=== PATIENT | female | born 1965 | race Caucasian/White ===

== ENCOUNTER → 2017-07-03 10:45 | Outpatient (POV) | payer MEDICARE, OTHER, MEDICAID, SELFPAY | PROVIDERS: Visit Provider Dermatology | DX: Z00.00 Encounter for general adult medical examination without abnormal findings (principal) ==

== ENCOUNTER → 2017-07-14 13:31 | Outpatient (CLI) | payer MEDICARE, OTHER, SELFPAY ==
--- NOTE | 2017-07-14 13:51 | MM_ITS ---
MM Dig mamm DX unilat LT CAD COMPARISON: 11/29/2016 and 11/18/2016 INDICATION: Follow-up calcifications ORDERING PHYSICIAN: Salvador Ivan MD PATIENT AGE: 52 years TECHNIQUE: Standard images performed along with magnification views of the left breast FINDINGS: There is average fibroglandular tissue. Previously noted calcifications in the upper outer left breast are once again noted. Pelvic calcifications are not segmentally change they do maintain somewhat pleomorphic appearance and are mildly suspicious. There was attempted stereotactic biopsy and clip or localization on these calcifications. The calcifications could not be seen by stereotactic due to the location and patient's body habitus. The hookwire localization was extremely difficult also due to limited mobility and patient's body habitus and the calcifications were not removed in the specimen. Review of older films now made available for comparison dating back to 06/11/2013 shows calcifications having been present on the older outside mammogram. It is difficult to compare if there is been any change as magnification views were not performed at that time. Benign-appearing nodular densities are once again noted involving the left breast unchanged. A clip is present in the medial aspect of the left breast. IMPRESSION: Persistent mildly suspicious calcifications in the deep upper outer left breast as detailed above. BI-RADS Category: 4 Suspicious Abnormality-Biopsy Considered Recommendations: Consider repeat biopsy for the suspicious calcifications Attempts were made to biopsy calcifications both by stereotactic and by the wire and more prominent with difficulty secondary to the patient's inability to be positioned. Stereotactic directed biopsy on upright units may be feasible. Alternatively, we may perform a limited CT scan to see if the calcifications can be seen by CT. If they can be identified by CT then acquired could be placed under CT guidance.
== END ==
PROVIDERS: PCP Emergency Medicine; Visit Provider Surgery
DX: R92.8 Other abnormal and inconclusive findings on diagnostic imaging of breast (principal)
CPT/HCPCS: 77065

== ENCOUNTER → 2017-08-13 14:57 | Outpatient (REF) | payer MEDICARE, OTHER, SELFPAY ==
[2017-08-13 19:49] LABS: Basophils % 0.3 % (0.1-2.0); Eosinophils # 0.1 K/mm3 (0.0-0.4); Eosinophils % 1.3 % (0.1-12.0); Hematocrit 39.9 % (37.0-47.0); Hemoglobin 12.5 g/dL (12.2-16.2); Lymphocytes # 1.3 K/mm3 (0.7-4.5); Lymphocytes % 13.3 K/mm3 (10-50); Mean Corpuscular HGB Conc 31.2 g/dL (31.8-35.4); Mean Corpuscular Hemoglobin 27.8 pg (27.0-31.2); Mean Corpuscular Volume 89.1 fl (81-99); Mean Platelet Volume 9.1 fl (7.4-10.4); Monocytes # 0.4 K/mm3 (0.1-1.0); Monocytes % 4.4 % (1.7-9.3); Neutrophils # 7.9 K/mm3 (1.8-7.8); Neutrophils % 80.8 % (37.0-80.0); Platelet Count 271 K/mm3 (142-424); Red Blood Count 4.48 M/mm3 (4.20-5.40); White Blood Count 9.7 K/mm3 (4.8-10.8)
[2017-08-13 21:10] LABS: Hemoglobin A1C 9.9 % (0.0-7.0)
[2017-08-13 22:07] LABS: Anion Gap 12.5 mEq/L (5-15); Blood Urea Nitrogen 13 mg/dL (7-18); Carbon Dioxide 30 mmol/L (21.0-32.0); Chloride 101 mmol/L (98-107); Creatinine,Serum 1.04 mg/dL (0.55-1.02); Estimated Glomerular Filt Rate 56 ml/min (>60); GFR (African American) 68 ML/MIN (>60); Glucose 184 mg/dL (74-106); Potassium 4.5 mmoL/L (3.5-5.1); Sodium 139 mmol/L (136-145); Thyroid Stimulating Hormone 1.35 uIU/ml (0.358-3.740)
[2017-08-15 15:35] LABS: Vitamin B12 404 pg/mL (232-1245); Vitamin D 25 Hydroxy 30.9 ng/mL (30.0-100.0)
== END ==
LOC: LAB 14:57
PROVIDERS: Visit Provider Emergency Medicine
DX: E11.9 Type 2 diabetes mellitus without complications (principal); M25.562 Pain in left knee; E03.9 Hypothyroidism, unspecified
CPT/HCPCS: 80048; 82607; 82652; 83036; 84443; 85025

== ENCOUNTER → 2017-10-02 08:12 | Outpatient (POV) | payer MEDICARE, OTHER, SELFPAY | PROVIDERS: Visit Provider Dermatology | DX: Z00.00 Encounter for general adult medical examination without abnormal findings (principal) ==

== ENCOUNTER → 2017-10-15 08:11 | Outpatient (CLI) | payer MEDICARE, OTHER, MEDICAID, SELFPAY ==
--- NOTE | 2017-10-15 08:28 | US_ITS ---
US gallbladder HISTORY: ITS.REASON: right upper quadrant pain ORDERING PHYSICIAN: Salvador Ivan MD PATIENT AGE: 52 years Comparison: None FINDINGS: PANCREAS: Unremarkable. No obvious mass or abnormal fluid collection. No ductal dilatation LIVER: No focal liver lesions demonstrated. Homogeneous echogenicity. No intrahepatic biliary ductal dilatation evident RIGHT KIDNEY: Unremarkable. Normal size and echogenicity. No hydronephrosis GALLBLADDER: No gallstones, gallbladder wall thickening, pericholecystic fluid, or biliary dilatation. IMPRESSION: Negative gallbladder/right upper quadrant ultrasound
== END ==
PROVIDERS: PCP Emergency Medicine; Visit Provider Surgery
DX: R10.11 Right upper quadrant pain (principal)
CPT/HCPCS: 76705

== ENCOUNTER → 2017-11-07 10:11 | Outpatient (CLI) | payer MEDICARE, OTHER, MEDICAID, SELFPAY ==
--- NOTE | 2017-11-07 10:14 | NM_ITS ---
HEPATOBILIARY SCAN WITH CCK ORDERING PHYSICIAN : Salvador Ivan MD PATIENT AGE: 52 years GENDER: Female HISTORY: Right upper quadrant pain and nausea Following 8.02 millicuries Tc Choletec, images of the RUQ were obtained. There is prompt uptake of radionuclide by the liver which is grossly unremarkable. Small bowel is visualized. This initial portion of the study is normal. The gallbladder was allowed to fill out to 60 minutes. CCK 2.2 MCG administered IV performed 30 minutes.. Thereafter. The obtain data was analyzed and reveals a 89 % gallbladder ejection fraction (normal greater than 50%; borderline 35-50%). This is normal value mild pain with CCK administration . Visual inspection images, supports that there is robust contraction of the gallbladder IMPRESSION: Normal functioning gallbladder. With CCK 89 % % gallbladder ejection fraction by computer analysis. Mild pain with CCK administration.
== END ==
PROVIDERS: PCP Emergency Medicine; Visit Provider Surgery
DX: R10.11 Right upper quadrant pain (principal)
CPT/HCPCS: 78227; A9537; J2805

== ENCOUNTER → 2017-11-11 09:25 | Outpatient (REF) | payer MEDICARE, MEDICAID, SELFPAY ==
[2017-11-11 13:24] LABS: Basophils % 0.4 % (0.1-2.0); Eosinophils # 0.1 K/mm3 (0.0-0.4); Eosinophils % 1.5 % (0.1-12.0); Hematocrit 41.3 % (37.0-47.0); Hemoglobin 13.2 g/dL (12.2-16.2); Lymphocytes # 1.1 K/mm3 (0.7-4.5); Lymphocytes % 13.1 K/mm3 (10-50); Mean Corpuscular HGB Conc 31.9 g/dL (31.8-35.4); Mean Corpuscular Hemoglobin 27.4 pg (27.0-31.2); Mean Corpuscular Volume 85.8 fl (81-99); Mean Platelet Volume 9.7 fl (7.4-10.4); Monocytes # 0.4 K/mm3 (0.1-1.0); Monocytes % 5.5 % (1.7-9.3); Neutrophils # 6.4 K/mm3 (1.8-7.8); Neutrophils % 79.6 % (37.0-80.0); Platelet Count 231 K/mm3 (142-424); Red Blood Count 4.81 M/mm3 (4.20-5.40); White Blood Count 8.1 K/mm3 (4.8-10.8)
[2017-11-11 13:42] LABS: Hemoglobin A1C 11.2 % (0.0-7.0)
[2017-11-11 13:59] LABS: Alanine Aminotransferase 36 U/L (12-78); Albumin Level 4.1 gm/dL (3.4-5.0); Albumin/Globulin Ratio 1.2 (1.1-1.8); Alkaline Phosphatase 145 U/L (46-116); Anion Gap 13.4 mEq/L (5-15); Aspartate Amino Transferase 19 U/L (15-37); Bilirubin,Total 0.6 mg/dL (0.2-1.0); Blood Urea Nitrogen 19 mg/dL (7-18); Calcium 9.6 mg/dL (8.5-10.1); Carbon Dioxide 31 mmol/L (21.0-32.0); Chloride 98 mmol/L (98-107); Chol/HDL Ratio 4.3 (1-3.5); Cholesterol 151 mg/dL (140-200); Creatinine,Serum 1.17 mg/dL (0.55-1.02); Estimated Glomerular Filt Rate 49 ml/min (>60); Free T4 (Free Thyroxine) 1.26 ng/dl (0.76-1.46); GFR (African American) 59 ML/MIN (>60); Globulin 3.3 gm/dl (1.3-3.2); Glucose 290 mg/dL (74-106); HDL Cholesterol 35 mg/dL (29-89); LDL Cholesterol 86 mg/dL (0-130); Potassium 4.4 mmoL/L (3.5-5.1); Sodium 138 mmol/L (136-145); Thyroid Stimulating Hormone 1.56 uIU/ml (0.358-3.740); Total Protein,Serum 7.4 gm/dL (6.4-8.2); Triglycerides 150 mg/dL (30-200); VLDL Cholesterol 30 mg/dL (0-40)
[2017-11-12 10:21] LABS: Creatinine, Urine 117.9 mg/dL (Not Estab.); Microalbumin, Urine 13.1 ug/mL (Not Estab.)
== END ==
LOC: LAB 09:25
PROVIDERS: Visit Provider Emergency Medicine
DX: E11.9 Type 2 diabetes mellitus without complications (principal); E03.9 Hypothyroidism, unspecified
CPT/HCPCS: 80053; 80061; 82043; 82570; 83036; 84439; 84443; 85025

== ENCOUNTER → 2017-12-01 10:20 | Outpatient (REF) | payer MEDICARE, MEDICAID, SELFPAY ==
[2017-12-01 14:17] LABS: Amphetamine/Metha Screen,Urine Negative ng/mL (<1000); Barbiturates Screen,Urine Negative ng/mL (<200); Benzodiazepines Screen,Urine Negative ng/mL (<200); Cannabinoid Screen,Urine Negative ng/mL (<50); Cocaine Screen,Urine Negative ng/mL (<300); Methadone Screen,Urine Negative ng/mL (<300); Opiate Screen,Urine Negative ng/mL (<300); Phencyclidine Screen,Urine Negative ng/mL (<25)
== END ==
LOC: LAB 10:20
PROVIDERS: Visit Provider Nurse Practitioner Family
DX: M79.7 Fibromyalgia (principal); Z79.899 Other long term (current) drug therapy
CPT/HCPCS: 80305

== ENCOUNTER → 2017-12-02 10:14 | Outpatient (CLI) | payer MEDICARE, MEDICAID, SELFPAY | PROVIDERS: Visit Provider Nurse Practitioner Family | DX: Z79.899 Other long term (current) drug therapy (principal) ==

== ENCOUNTER → 2017-12-22 11:05 | Outpatient (POV) | payer MEDICARE, OTHER, MEDICAID, SELFPAY | PROVIDERS: PCP Emergency Medicine; Visit Provider Nurse Practitioner Acute Care | DX: Z00.00 Encounter for general adult medical examination without abnormal findings (principal) ==

== ENCOUNTER → 2017-12-30 08:46 | Outpatient (CLI) | payer MEDICARE, OTHER, MEDICAID, SELFPAY | PROVIDERS: PCP Emergency Medicine; Visit Provider Emergency Medicine | DX: E11.9 Type 2 diabetes mellitus without complications (principal) | CPT/HCPCS: 97802; G0108 ==

== ENCOUNTER → 2018-01-01 13:33 | Outpatient (REF) | payer MEDICARE, OTHER, MEDICAID, SELFPAY ==
[2018-01-01 19:29] LABS: Amphetamine/Metha Screen,Urine Negative ng/mL (<1000); Barbiturates Screen,Urine Negative ng/mL (<200); Benzodiazepines Screen,Urine Negative ng/mL (<200); Cannabinoid Screen,Urine Negative ng/mL (<50); Cocaine Screen,Urine Negative ng/mL (<300); Methadone Screen,Urine Negative ng/mL (<300); Opiate Screen,Urine Negative ng/mL (<300); Phencyclidine Screen,Urine Negative ng/mL (<25)
== END ==
LOC: LAB 13:33
PROVIDERS: Visit Provider Nurse Practitioner Family
DX: M79.7 Fibromyalgia (principal)
CPT/HCPCS: 80305

== ENCOUNTER → 2018-01-05 19:54 | Outpatient (CLI) | payer MEDICARE, OTHER, MEDICAID, SELFPAY | PROVIDERS: PCP Emergency Medicine; Visit Provider Emergency Medicine | DX: G47.33 Obstructive sleep apnea (adult) (pediatric) (principal); R06.83 Snoring | CPT/HCPCS: 95811 ==

== ENCOUNTER → 2018-01-22 08:57 | Outpatient (CLI) | payer MEDICARE, OTHER, MEDICAID, SELFPAY ==
--- NOTE | 2018-01-22 09:00 | MM_ITS ---
MM Dig screening mamm BI w/CAD ORDERING PHYSICIAN : Jamel Butler MD PATIENT AGE: 52 years GENDER: Female COMPARISON: July 2017 left mammogram; September 2015 and October 2016 bilateral screening mammogram Also July 2014 INDICATION: ITS.REASON: Routine Screening Mammogram no new complaints Previous bilateral breast reduction. Previous excisional biopsy. Upper-outer quadrant left breast Family history. Sister with breast cancer age 62 TECHNIQUE: Standard CC and MLO images were obtained. R2 CAD reviewed. FINDINGS: No suspicious . Heterogeneous breast pattern with mild to moderate scattered fibroglandular elements RIGHT BREAST:. No new areas of concern. Follow-up in one year. Stable architecture. No mass lesions. A few benign-appearing punctate calcifications appear fairly stable LEFT BREAST:Metallic marker clip at medial breast from previous stereotactic biopsy again noted.. Previously noted grouping calcifications at very deep lateral at left breast on axillary cc view is less well visualized today than 2017 or July 2017 mammogram images. There seems to be some subtle minimal motion artifact on today's images.. Recommend patient return for magnification spot views of these calcifications. Labeled X. These have not changed significantly but are again noted and were of concern on previous studies . At the area labeled Y, I believe at superior central left breast, are some tiny additional calcifications that would benefit from magnification views is well these appear fairly punctate more likely benign but nonspecific IMPRESSION: 1. Additional views LEFT BREAST recommended ... Magnification spot views to better evaluate and follow the slight irregular calcifications noted on recent prior studies at deep upper-outer quadrant. (Very subtle Motion artifact on today's MLO view limits detail & resolution here on today's study. Additional views warranted). This area is labeled X ... There are also some most likely benign very tiny faint punctate calcifications area labeled Y, I believe at superior breast. These should be included on these above magnification views as well 2... RIGHT BREAST:. Unremarkable. Stable. Follow-up in one year on right BI-RADS Category: 0 Need Additional Imaging Evaluaiton RECOMMENDED FOLLOW-UP: IMM - IMMEDIATE FOLLOW-UP RECOMMENDED Magnification views left breast (A letter has been sent to the patient regarding results of the study.) .
== END ==
PROVIDERS: PCP Emergency Medicine; Visit Provider Nurse Practitioner Obstetrics & Gynecology
DX: Z12.31 Encounter for screening mammogram for malignant neoplasm of breast (principal)
CPT/HCPCS: 77067

== ENCOUNTER → 2018-01-30 19:24 | Outpatient (REF) | payer MEDICARE, OTHER, MEDICAID, SELFPAY | LOC: LAB 19:24 | PROVIDERS: Visit Provider Nurse Practitioner Family | DX: L02.91 Cutaneous abscess, unspecified (principal) | CPT/HCPCS: 87070; 87077; 87186; 87205 ==

== ENCOUNTER → 2018-02-03 06:55 | Outpatient (CLI) | payer MEDICARE, OTHER, MEDICAID, SELFPAY ==
--- NOTE | 2018-02-03 06:57 | NM_ITS ---
CARDIOLITE SPECT MYOCARDIAL PERFUSION SCAN, REST AND STRESS: EXERCISE STRESS [facility] REVIEW QGS EF AND WALL MOTION EVALUATION: QPS - PERFUSION EVALUATION HISTORY: short of breath DOSE: 10.31 mCi technetium 99m mibi intravenously at rest followed by 32.3 mCi technetium 99m mibi following the intravenous ministration of 0.4 mg of Lexiscan. Resting blood pressure is 117/71. Stress blood pressure 122/64. FINDINGS: Ejection fraction is calculated to be 60%. Stress images reveal decreased activity in the anterior wall with some improvement on rest images. Gated images calculated ejection fraction of 60% with normal wall motion. IMPRESSION: Clinical correlation is advised. This test is not entirely consistent with breast attenuation and there is suggestion of some degree of reversibility in the anterior wall this would be considered a high risk abnormal stress test given the anterior wall involvement. Normal ejection fraction normal wall motion
--- NOTE | 2018-02-03 08:59 | HMH.ITSHM ---
GABAPENTIN CITALOPRAM TRAMADOL LISINOPRIL HUMALIN ATORVASTATIN RANITIDINE MELATONIN CENTRUM SILVER LEVEMIRE PHENTERMINE ASA MURENA CEPHALEXIN
== END ==
PROVIDERS: PCP Emergency Medicine; Visit Provider Internal Medicine
DX: E03.9 Hypothyroidism, unspecified (principal); E66.9 Obesity, unspecified; I10 Essential (primary) hypertension; R06.09 Other forms of dyspnea; R87.629 Unspecified abnormal cytological findings in specimens from vagina; E11.9 Type 2 diabetes mellitus without complications
CPT/HCPCS: 78452; 93017; 93306; A9502; J2785

== ENCOUNTER → 2018-02-17 09:46 | Outpatient (CLI) | payer MEDICARE, OTHER, MEDICAID, SELFPAY ==
--- NOTE | 2018-02-17 09:48 | XR_ITS ---
XR foot wt bearing LT 3V HISTORY: ITS.REASON: Pain, clubfoot ORDERING PHYSICIAN: Jamel Butler MD PATIENT AGE: 53 years COMPARISON: None FINDINGS: There is mild foot adduction. No inversion of the heel or plantarflexion on the weightbearing images. No fracture or dislocation. No significant degenerative change. IMPRESSION: Mild foot adduction otherwise negative left foot
--- NOTE | 2018-02-17 09:48 | XR_ITS ---
XR foot wt bearing RT 3V HISTORY: ITS.REASON: Club Foot ORDERING PHYSICIAN: Jamel Butler MD PATIENT AGE: 53 years COMPARISON: None FINDINGS: No fracture or dislocation. No lytic or blastic change. There is normal mineralization.. The joint spaces are well-preserved. No significant degenerative/arthritic changes. No erosive changes evident. There is normal alignment. A 02/17/2018 the There is minimal hyperostosis along the dorsal aspect of the distal fibula IMPRESSION: Negative, no acute finding
--- NOTE | 2018-02-17 09:48 | XR_ITS ---
XR ankle wt bearing RT min 3V HISTORY: ITS.REASON: club foot ORDERING PHYSICIAN: Jamel Butler MD PATIENT AGE: 53 years Comparison: None FINDINGS: There is normal alignment. There is mild lateral tilt of the talus. There is no evidence of inversion of the heel or plantar flexion of the ankle. The talar dome has an unremarkable appearance. IMPRESSION: 1. Minimal lateral tilt of the talus 2. Otherwise negative right ankle
--- NOTE | 2018-02-17 09:48 | MM_ITS ---
MM Dig mamm DX unilat LT CAD INDICATION: Follow-up abnormal mammogram ORDERING PHYSICIAN: Jamel Butler MD PATIENT AGE: 53 years COMPARISON: 01/22/2018, 07/14/2017, 11/29/2016, 06/11/2013 TECHNIQUE: Spot compression mag views of the left breast FINDINGS: Cluster calcification is once again noted in the deep upper outer aspect of the left breast. These do not appear significantly changed compared to 11/29/2016. There are mildly suspicious however they do appear stable and have been present dating back to 06/11/2013 and are probably benign. The faint calcifications in the central left breast seen on the most recent screening mammogram are probably benign. IMPRESSION: Probably benign calcifications. Calcifications in the deep upper outer left breast are not significant changed. Calcifications in the central aspect of left breast probably benign BI-RADS Category: 3 Probably Benign Finding Short Term Follow-up RECOMMENDED FOLLOW-UP: 6M - 6 MONTH FOLLOW-UP (A letter has been sent to the patient regarding results of the study.)
--- NOTE | 2018-02-17 09:48 | XR_ITS ---
XR ankle wt bearing LT min 3V HISTORY: ITS.REASON: club foot ORDERING PHYSICIAN: Jaeml Butler MD PATIENT AGE: 53 years Comparison: None FINDINGS: There is mild lateral tilt of the talus. The talar dome has an unremarkable appearance. No other significant anomalies evident. IMPRESSION: Mild lateral talar tilt otherwise negative left ankle
== END ==
PROVIDERS: PCP Emergency Medicine; Referring Provider Podiatrist; Visit Provider Nurse Practitioner Obstetrics & Gynecology
DX: R92.2 Inconclusive mammogram (principal); Q66.0 Congenital talipes equinovarus
CPT/HCPCS: 73610; 73630; 77065

== ENCOUNTER → 2018-03-02 13:14 | Outpatient (POV) | payer MEDICARE, OTHER, MEDICAID, SELFPAY | PROVIDERS: PCP Emergency Medicine; Visit Provider Nurse Practitioner Acute Care | DX: Z00.00 Encounter for general adult medical examination without abnormal findings (principal) ==

== ENCOUNTER → 2018-03-17 13:03 | Outpatient (CLI) | payer MEDICARE, OTHER, MEDICAID, SELFPAY ==
--- NOTE | 2018-03-17 13:04 | US_ITS ---
US Arterial Ankle Brachial Ind History: Bilateral breast pain, bilateral claudication, hyperlipidemia ITS.REASON: skin changes ORDERING PHYSICIAN: Yee Roy DPM PATIENT AGE: 53 years TECHNIQUE: Segmental pressures obtained of both right and left leg. These are compared to brachial blood pressure to yield index at each level sampled including summary MILAGRO. The data sheets from the procedure are available in PACS FINDINGS Rest study only performed today No prior studies available for comparison. Blood pressures reported are in millimeters mercury. RIGHT LEG MILAGRO = 1.0. RIGHT LEG TBI=0.9 Brachial BP: 115 Thigh BP: 136 Calf BP: 120 Ankle PT: 118 Ankle DP : 110 Digit =99 LEFT LEG MILAGRO = 1.0 LEFT LEG TBI= 1.0 Brachial BPD: 115 Thigh BP: 128 Calf BP: 122 Ankle PT:110 Ankle DP: 106 Digit = 109 Pulses and waveforms: Normal IMPRESSION: The ABIs as reported above are within normal limits. Waveforms and pulses are also unremarkable.
== END ==
PROVIDERS: PCP Emergency Medicine; Visit Provider Podiatrist
DX: R09.89 Other specified symptoms and signs involving the circulatory and respiratory systems (principal)
CPT/HCPCS: 93922

== ENCOUNTER → 2018-03-19 10:29 | Outpatient (REF) | payer MEDICARE, OTHER, MEDICAID, SELFPAY ==
[2018-03-19 14:19] LABS: Basophils # 0.1 K/mm3 (0-0.2); Basophils % 0.5 % (0.1-2.0); Eosinophils # 0.2 K/mm3 (0.0-0.4); Eosinophils % 1.7 % (0.1-12.0); Hematocrit 39.9 % (37.0-47.0); Lymphocytes # 1.2 K/mm3 (0.7-4.5); Lymphocytes % 13.3 K/mm3 (10-50); Mean Corpuscular HGB Conc 32.6 g/dL (31.8-35.4); Mean Corpuscular Hemoglobin 28.4 pg (27.0-31.2); Mean Corpuscular Volume 87.2 fl (81-99); Mean Platelet Volume 9.4 fl (7.4-10.4); Monocytes # 0.5 K/mm3 (0.1-1.0); Monocytes % 5.6 % (1.7-9.3); Neutrophils # 7.2 K/mm3 (1.8-7.8); Platelet Count 287 K/mm3 (142-424); Red Blood Count 4.58 M/mm3 (4.20-5.40); Red Cell Distribution Width 13.7 % (11.5-17.5); White Blood Count 9.1 K/mm3 (4.8-10.8)
[2018-03-19 14:36] LABS: Alanine Aminotransferase 36 U/L (12-78); Albumin Level 3.7 gm/dL (3.4-5.0); Alkaline Phosphatase 144 U/L (46-116); Anion Gap 14.1 mEq/L (5-15); Aspartate Amino Transferase 24 U/L (15-37); Bilirubin,Total 0.5 mg/dL (0.2-1.0); Blood Urea Nitrogen 14 mg/dL (7-18); Calcium 9.2 mg/dL (8.5-10.1); Carbon Dioxide 29 mmol/L (21.0-32.0); Chloride 101 mmol/L (98-107); Chol/HDL Ratio 3.6 (1-3.5); Cholesterol 141 mg/dL (140-200); Creatinine,Serum 0.92 mg/dL (0.55-1.02); Estimated Glomerular Filt Rate 64 ml/min (>60); GFR (African American) 78 ML/MIN (>60); Globulin 3.6 gm/dl (1.3-3.2); Glucose 133 mg/dL (74-106); HDL Cholesterol 39 mg/dL (29-89); LDL Cholesterol 82 mg/dL (0-130); Potassium 4.1 mmoL/L (3.5-5.1); Sodium 140 mmol/L (136-145); T4 (Thyroxine) 11.2 ug/dl (4.7-13.3); Thyroid Stimulating Hormone 1.13 uIU/ml (0.358-3.740); Total Protein,Serum 7.3 gm/dL (6.4-8.2); Triglycerides 102 mg/dL (30-200); VLDL Cholesterol 20 mg/dL (0-40)
[2018-03-19 16:48] LABS: Hemoglobin A1C 9.1 % (0.0-7.0)
[2018-03-20 08:35] LABS: Iron 70 ug/dL (27-159); UIBC 291 ug/dL (131-425)
[2018-03-20 09:07] LABS: Iron Saturation 19 % (15-55); Vitamin D 25 Hydroxy 36.7 ng/mL (30.0-100.0)
[2018-03-23 16:22] LABS: 1,25-Dihydroxy, Vitamin D-2 <10 pg/mL (.)
[2018-03-23 17:17] LABS: 1,25 Dihydroxy Vitamin D 35 pg/mL (.); 1,25-Dihydroxy, Vitamin D-3 30 pg/mL (.)
== END ==
LOC: LAB 10:29
PROVIDERS: PCP Nurse Practitioner Family; Visit Provider Nurse Practitioner Family
DX: E11.9 Type 2 diabetes mellitus without complications (principal); R53.83 Other fatigue; E03.9 Hypothyroidism, unspecified
CPT/HCPCS: 80053; 80061; 82652; 83036; 83540; 83550; 84436; 84443; 85025

== ENCOUNTER → 2018-04-30 09:49 | Outpatient (CLI) | payer MEDICARE, OTHER, MEDICAID, SELFPAY ==
--- NOTE | 2018-04-30 09:52 | XR_ITS ---
XR knee RT 4V HISTORY: ITS.REASON: 4 veiws weightbearing ORDERING PHYSICIAN: Keira Montgomery MD PATIENT AGE: 53 years COMPARISON: None FINDINGS: Moderate osteoarthritic changes are present at the patellofemoral joint along the lateral facet with mild lateral subluxation of the patella. Mild osteoarthritic changes are present at the medial and lateral compartment. No fracture or dislocation. No lytic or blastic change. IMPRESSION: Osteoarthritis, otherwise negative
--- NOTE | 2018-04-30 09:52 | XR_ITS ---
XR knee LT 4V HISTORY: Knee pain ITS.REASON: weightbearing ORDERING PHYSICIAN: Keira Montgomery MD PATIENT AGE: 53 years COMPARISON: None FINDINGS: There are mild osteoarthritic changes involving all 3 compartments somewhat greater at the patellofemoral joint laterally. No fracture or dislocation. No lytic or blastic change. There is a subcortical lucency of the proximal tibia just deep to the medial tibial spine and may be due to small subarticular cyst. IMPRESSION: Mild osteoarthritis
== END ==
PROVIDERS: PCP Emergency Medicine; Visit Provider Orthopaedic Surgery
DX: M25.561 Pain in right knee (principal); M25.562 Pain in left knee
CPT/HCPCS: 73564

== ENCOUNTER → 2018-06-04 08:50 | Outpatient (CLI) | payer MEDICARE, OTHER, MEDICAID, SELFPAY ==
--- NOTE | 2018-06-04 08:55 | XR_ITS ---
XR hip LT 2-3V w/pelvis HISTORY: ITS.REASON: Hip pain ORDERING PHYSICIAN: Keira Montgomery MD PATIENT AGE: 53 years COMPARISON: None FINDINGS: No fracture or dislocation is evident. No significant degenerative change. No lytic or blastic change. Unremarkable soft tissues IMPRESSION: Negative hip
--- NOTE | 2018-06-04 08:55 | XR_ITS ---
XR pelvis 1-2V HISTORY: Bilateral hip pain ITS.REASON: Hip pain ORDERING PHYSICIAN: Keira Montgomery MD PATIENT AGE: 53 years Comparison: None FINDINGS: No fracture or dislocation is evident. No significant degenerative change. No lytic or blastic change. The SI joints have an unremarkable appearance. Unremarkable soft tissues. There is a Shar D in place IMPRESSION: Negative pelvis.
--- NOTE | 2018-06-04 08:55 | XR_ITS ---
EXAM: XR lumbar spine 2-3V HISTORY: ITS.REASON: back pain ORDERING PHYSICIAN: Keira Montgomery MD PATIENT AGE: 53 years COMPARISON: 11/27/2012 FINDINGS: There is mild lumbar scoliosis convex left. Mild lateral translation of L3 on L4 of 6 mm. Degenerative disc disease is present at T12-L1, L1-L2, and L3-L4. Small anterior osteophytes are present at these levels. IMPRESSION: Degenerative disc disease with levoscoliosis. These findings have progressed compared to the previous exam
--- NOTE | 2018-06-04 09:09 | XR_ITS ---
XR hip RT 2-3V w/pelvis HISTORY: ITS.REASON: Hip pain ORDERING PHYSICIAN: Keira Montgomery MD PATIENT AGE: 53 years COMPARISON: None FINDINGS: No fracture or dislocation is evident. No significant degenerative change. No lytic or blastic change. There is minimal calcification along the lateral aspect of the proximal femoral shaft within the soft tissues nonspecific. There are 2 small rounded areas of calcification and a small linear area of calcification at this region. IMPRESSION: Nonspecific soft tissue calcification. This may be better evaluated with CT if clinically warranted. No bony or joint abnormalities
== END ==
PROVIDERS: PCP Emergency Medicine; Visit Provider Orthopaedic Surgery
DX: M25.552 Pain in left hip (principal); M25.551 Pain in right hip; M54.9 Dorsalgia, unspecified
CPT/HCPCS: 72100; 72170; 73502

== ENCOUNTER → 2018-06-25 10:09 | Outpatient (CLI) | payer MEDICARE, OTHER, MEDICAID, SELFPAY ==
--- NOTE | 2018-06-25 10:14 | XR_ITS ---
EXAM: XR cervical spine 2V HISTORY: ITS.REASON: Neck pain ORDERING PHYSICIAN: Keira Montgomery MD PATIENT AGE: 53 years COMPARISON: None FINDINGS: There is kyphosis at the C4-C5 level with 2 mm anterolisthesis of C4. Moderate degenerative disc disease with prominent anterior osteophytes are present at C5-C6 and C6-C7 with mild degenerative disc disease at C4-C5. No fracture or dislocation. IMPRESSION: Reversal of cervical lordosis with multilevel cervical degenerative disc disease
--- NOTE | 2018-06-25 10:14 | XR_ITS ---
XR scoliosis survey CLINICAL INDICATION: ITS.REASON: Back pain ORDERING PHYSICIAN: Keira Montgomery MD PATIENT AGE: 53 years Comparison: None FINDINGS: Upright AP and lateral views are obtained of the thoracic and lumbar spine there is mild levoscoliosis of the lumbar spine measuring 15 degrees. Minimal upper thoracic scoliosis convex right measuring 5 degrees. There is degenerative disc disease at L1-L2 and L3-L4 as well as within the mid and lower thoracic spine. No acute fracture or dislocation. IMPRESSION: Mild thoracic lumbar scoliosis with thoracic and lumbar spondylosis
== END ==
PROVIDERS: PCP Emergency Medicine; Visit Provider Orthopaedic Surgery
DX: M54.9 Dorsalgia, unspecified (principal); M54.2 Cervicalgia
CPT/HCPCS: 72040; 72081

== ENCOUNTER → 2018-07-13 10:23 | Outpatient (POV) | payer MEDICARE, OTHER, MEDICAID, SELFPAY | PROVIDERS: Visit Provider Nurse Practitioner Acute Care | DX: Z00.00 Encounter for general adult medical examination without abnormal findings (principal) ==

== ENCOUNTER → 2018-08-06 09:30 | Outpatient (POV) | payer MEDICARE, OTHER, MEDICAID, SELFPAY | PROVIDERS: Visit Provider Podiatrist | DX: Z00.00 Encounter for general adult medical examination without abnormal findings (principal) ==

== ENCOUNTER → 2018-08-10 10:02 | Outpatient (POV) | payer MEDICARE, OTHER, MEDICAID, SELFPAY ==
[2018-08-10 10:21] VITALS: BP 139/75; PULSE 84; RESP 18; O2SAT 98
--- NOTE | 2018-08-10 10:37 | HMH.PMCON ---
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 I will follow-up with the patient after this and reassess her symptoms at that time. She has been instructed to call the office if she has any issues prior to her next appointment. Dr. James has reviewed this note and agrees with this plan of care. This note was dictated using voice recognition software and may contain errors or omissions HPI - Data of Consult Consult date: 08/10/18 Requesting Physician: Yusra Spangler APRN Primary Care Provider: Tien Wade MD - Consult Narrative Reason for consult: Back pain, hip pain History of present illness: Ms. Chase is a 53 year old female who presents today for consultation in regards to her low back and hip pain. Patient has pain around her belt area and radiating into her bilateral buttock. Patient states that she does not have any radiation of pain down her legs. Patient has not had a recent MRI. I do believe that would be beneficial in helping determine any lumbar pathology. Patient has been taking medication for over 6 months along with getting injections from her orthopedist. Patient rates her pain a 6 out of 10 today. Mother patient does have history of clubfoot and has not been wearing her braces recently. The area which the pain is located is in her SI joint area. We will get some imaging in regards to this. Patient is continuing a home stretching routine. CC: Yusra Spangler APRN [facility] History I have reviewed the patient's past medical history: Yes Medical History: Reports:: Anxiety, Depression, Diabetes Mellitus Type 2, Hyperlipidemia, Hypertension, Lung Disease Denies:: Diabetes Mellitus Type 1, Internal Pacemaker, Seizures *Have you ever received a pneumonia vaccine?: No *Have you received a flu vaccine this season?: Yes Other Medical History: Reports: Arthritis, Fibromyalgia, Hypothyroidism, Thyroid Disease Laterality Cases: Right: Carpal Tunnel Release, Bilateral: Other Other Surgeries: Yes: Other (breast reduction). No: Pacemaker Amputation: No Fractures: No - *Social History Smoking Status: Unknown if ever smoked Alcohol Intake: never Alcohol Intake Frequency:: other Substance Use Type: denies use *Occupational Status:: disabled Housing: house Household Members: family *Travel in the last 8 weeks: None - Psychiatric History Expresses thoughts of harming self/others: None Suicide Plan Description: No Plan Pschychiatric History:: Reports:: Anxiety, Depression Family Hx:: Hypertension, Hyperlipidemia, Thyroid Disorder, Cancer, Heart Attack Review of Systems - Review of Systems ROS General: no recent weight change, no fever, no sleep disturbances Respiratory: no cough, no shortness of air, no recurring pulmonary infections Cardiovascular/Peripheral Vascular: No chest pain, No palpitations, no edema, no shortness of breath. Gastrointestinal: no incontinence, normal bowel movements reported Genitourinary: no incontinence Musculoskeletal: Back pain, hip pain Psychiatric: normal mood/ affect Neurological: [denies weakness in extremities], [denies balance issues] Meds Home Medications Medication Instructions Recorded Confirmed Type Blood-Glucose Meter [Glucocard 0 each .ROUTE .MEDSUPPLY 09/29/17 08/06/18 History Shine Xl] aspirin 81 mg tablet
--- NOTE | 2018-08-10 10:40 | P.CONS_ITS ---
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 I will follow-up with the patient after this and reassess her symptoms at that time. She has been instructed to call the office if she has any issues prior to her next appointment. Dr. James has reviewed this note and agrees with this plan of care. This note was dictated using voice recognition software and may contain errors or omissions HPI - Data of Consult Consult date: 08/10/18 Requesting Physician: Yusra Spangler APRN Primary Care Provider: Tien Wade MD - Consult Narrative Reason for consult: Back pain, hip pain History of present illness: Ms. Chase is a 53 year old female who presents today for consultation in regards to her low back and hip pain. Patient has pain around her belt area and radiating into her bilateral buttock. Patient states that she does not have any radiation of pain down her legs. Patient has not had a recent MRI. I do believe that would be beneficial in helping determine any lumbar pathology. Patient has been taking medication for over 6 months along with getting injections from her orthopedist. Patient rates her pain a 6 out of 10 today. Mother patient does have history of clubfoot and has not been wearing her braces recently. The area which the pain is located is in her SI joint area. We will get some imaging in regards to this. Patient is continuing a home stretching routine. CC: Yusra Spangler APRN [facility] History I have reviewed the patient's past medical history: Yes Medical History: Reports:: Anxiety, Depression, Diabetes Mellitus Type 2, Hyperlipidemia, Hypertension, Lung Disease Denies:: Diabetes Mellitus Type 1, Internal Pacemaker, Seizures *Have you ever received a pneumonia vaccine?: No *Have you received a flu vaccine this season?: Yes Other Medical History: Reports: Arthritis, Fibromyalgia, Hypothyroidism, Thyroid Disease Laterality Cases: Right: Carpal Tunnel Release, Bilateral: Other Other Surgeries: Yes: Other (breast reduction). No: Pacemaker Amputation: No Fractures: No - *Social History Smoking Status: Unknown if ever smoked Alcohol Intake: never Alcohol Intake Frequency:: other Substance Use Type: denies use *Occupational Status:: disabled Housing: house Household Members: family *Travel in the last 8 weeks: None - Psychiatric History Expresses thoughts of harming self/others: None Suicide Plan Description: No Plan Pschychiatric History:: Reports:: Anxiety, Depression Family Hx:: Hypertension, Hyperlipidemia, Thyroid Disorder, Cancer, Heart Attack Review of Systems - Review of Systems ROS General: no recent weight change, no fever, no sleep disturbances Respiratory: no cough, no shortness of air, no recurring pulmonary infections Cardiovascular/Peripheral Vascular: No chest pain, No palpitations, no edema, no shortness of breath. Gastrointestinal: no incontinence, normal bowel movements reported Genitour
== END ==
PROVIDERS: PCP Emergency Medicine; Visit Provider Clinical Nurse Specialist Family Health
DX: M15.3 Secondary multiple arthritis (principal)
CPT/HCPCS: 99202

== ENCOUNTER → 2018-08-13 12:28 | Outpatient (CLI) | payer MEDICARE, OTHER, MEDICAID, SELFPAY ==
--- NOTE | 2018-08-13 12:40 | XR_ITS ---
XR sacroiliac joint BI min 3V CLINICAL INDICATION: ITS.REASON: BACK PAIN ORDERING PHYSICIAN: Yusra Spangler PATIENT AGE: 53 years Comparison: None FINDINGS: The SI joints have an unremarkable appearance. No fracture or dislocation. No lytic or blastic change. No fusion. There is an IUD in place IMPRESSION: Negative SI joints
--- NOTE | 2018-08-13 13:52 | MR_ITS ---
MR lumbar spine wo con, MR 3-d myelogram/MRCP HISTORY: PT states low back pain X years. RT sided pain is worse. Bilateral leg pain and numbness at times. No prior surgery. ITS.REASON: BACK PAIN ORDERING PHYSICIAN: Yusra Spangler PATIENT AGE: 53 years Comparison: X-RAY 06/04/18. MRI 11/06/16. TECHNIQUE: Standard multiplanar multiecho sequences are performed without contrast. 3-D MIP and myelographic images are also rendered and reviewed FINDINGS: There is normal alignment. Spinal cord ends at the L1 level. T11-T12: There is a small left paracentral disc protrusion causing compression upon the left aspect of the cord and flattening of the left aspect of the cord. This is slightly increased in size compared to the previous study also with left lateral recess and foraminal narrowing from this disc. T11-T12: Unremarkable. L1-L2: Degenerative disc disease with minimal bulging disc. L2-L3: Unremarkable. L3-L4: Degenerative disc disease with bulging disc. There is moderate to severe facet and ligamentum flavum hypertrophy with severe bilateral lateral recess narrowing and moderate right-sided foraminal and mild left-sided foraminal narrowing. The disc is slightly eccentric toward the right. There is transverse narrowing of the canal with the bilateral lateral recess narrowing noted. The ligamentum hypertrophy appears somewhat greater than when compared to the previous exam with worsening bilateral lateral recess narrowing and bilateral foraminal narrowing. L4-L5: Moderate facet ligamentum flavum hypertrophic change with bilateral lateral recess narrowing slightly worse than when compared to the previous exam. L5-S1: Mild facet and ligamentum flavum hypertrophy with mild bilateral foraminal narrowing. A small amount fluid is present in the facets at this level. IMPRESSION: 1. T11-T12: There is a small left paracentral disc protrusion causing compression upon the left aspect of the cord and flattening of the left aspect of the cord. This is slightly increased in size compared to the previous study also with left lateral recess and foraminal narrowing from this disc 2. L3-L4: Degenerative disc disease with bulging disc. There is moderate to severe facet and ligamentum flavum hypertrophy with severe bilateral lateral recess narrowing and moderate right-sided foraminal and mild left-sided foraminal narrowing. The disc is slightly eccentric toward the right. There is transverse narrowing of the canal with the bilateral lateral recess narrowing noted. The ligamentum hypertrophy appears somewhat greater than when compared to the previous exam with worsening bilateral lateral recess narrowing and bilateral foraminal narrowing. 3. L4-L5: Moderate facet ligamentum flavum hypertrophic change with bilateral lateral recess narrowing slightly worse than when compared to the previous exam. 4. L5-S1: Mild facet and ligamentum flavum hypertrophy with mild bilateral foraminal narrowing. A small amount fluid is present in the facets at this level.
== END ==
PROVIDERS: PCP Emergency Medicine; Visit Provider Clinical Nurse Specialist Family Health
DX: M54.5 Low back pain (principal)
CPT/HCPCS: 72148; 72202; 76376

== ENCOUNTER → 2018-08-24 14:19 | Outpatient (POV) | payer MEDICARE, OTHER, MEDICAID, SELFPAY ==
[2018-08-24 14:50] VITALS: BP 131/80; PULSE 98; RESP 18; O2SAT 98; BMI 40.0
--- NOTE | 2018-08-24 15:23 | XR_ITS ---
EXAM: XR lumbar spine 2-3V HISTORY: ITS.REASON: BACK PAIN ORDERING PHYSICIAN: Yusra Spangler PATIENT AGE: 53 years COMPARISON: None FINDINGS: There is mild lumbar scoliosis convex left. Flexion and extension views are obtained showing no abnormal subluxation in flexion or extension. There is degenerative disc disease at T11-T12, T12-L1, L1-L2, and L3-L4. IMPRESSION: Degenerative disc disease, no abnormal subluxation in flexion or extension
--- NOTE | 2018-08-25 08:17 | HMH.PAINSOAP ---
[facility] Pain Management SOAP Note Subjective:: Patient is a very pleasant 53-year-old white female who presents today to discuss her most recent MRI. Patient states most of her pain is in her low back and legs. She finds she cannot walk for long periods of time she finds that she constantly feels herself being pulled over to help alleviate pain. When patient is walking in the grocery store she has to lean on a cart. Patient states she gets numbness and tingling in her legs after standing for long periods of time. Patient is interested in potentially the for to flex procedure. I think it would be beneficial for her. She rates her pain today a 6 out of 10. Patient is only able to walk about 5 minutes prior to needing to sit down. ROS General: no recent weight change, no fever, no sleep disturbances Respiratory: no cough, no shortness of air, no recurring pulmonary infections Cardiovascular/Peripheral Vascular: No chest pain, No palpitations, no edema, no shortness of breath. Gastrointestinal: no incontinence, normal bowel movements reported Genitourinary: no incontinence Musculoskeletal: Back pain and leg pain Psychiatric: normal mood/ affect Neurological: Weakness in lower extremities when walking, [denies balance issues] Objective:: Physical Exam General: Alert and oriented x3, no acute distress, pleasant and cooperative, [on room air] Lungs: Resps E/U, Symmetrical chest expansion, Eyes: PERRL Musculoskeletal: Flexion and extension of lumbar spine somewhat guarded secondary to pain, deep tendon reflexes normal, strength in upper and lower extremities [5/5], [abnormal gait noted] Neurological: speech clear, junior art director equal, no gross sensory deficits Assessment:: 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 I discussed this with her the levels of the L3-L4 L4-L5. We will send her for seated flexion and extension x-rays to see if this would be plausible. Patient's not on any anticoagulation therapy. She is continuing a home stretching program. Patient is failed over 6 months of conservative treatment. Including medications and injective therapies Dr. James has reviewed this note and agrees with this plan of care. This note was dictated using voice recognition software and may contain errors or omissions
--- NOTE | 2018-08-25 08:21 | P.CONS_ITS ---
[facility] Pain Management SOAP Note Subjective:: Patient is a very pleasant 53-year-old white female who presents today to discuss her most recent MRI. Patient states most of her pain is in her low back and legs. She finds she cannot walk for long periods of time she finds that she constantly feels herself being pulled over to help alleviate pain. When patient is walking in the grocery store she has to lean on a cart. Patient states she gets numbness and tingling in her legs after standing for long periods of time. Patient is interested in potentially the for to flex procedure. I think it would be beneficial for her. She rates her pain today a 6 out of 10. Patient is only able to walk about 5 minutes prior to needing to sit down. ROS General: no recent weight change, no fever, no sleep disturbances Respiratory: no cough, no shortness of air, no recurring pulmonary infections Cardiovascular/Peripheral Vascular: No chest pain, No palpitations, no edema, no shortness of breath. Gastrointestinal: no incontinence, normal bowel movements reported Genitourinary: no incontinence Musculoskeletal: Back pain and leg pain Psychiatric: normal mood/ affect Neurological: Weakness in lower extremities when walking, [denies balance issues] Objective:: Physical Exam General: Alert and oriented x3, no acute distress, pleasant and cooperative, [on room air] Lungs: Resps E/U, Symmetrical chest expansion, Eyes: PERRL Musculoskeletal: Flexion and extension of lumbar spine somewhat guarded seconda ry to pain, deep tendon reflexes normal, strength in upper and lower extremities [5/5], [abnormal gait noted] Neurological: speech clear, refrigeration specialist equal, no gross sensory deficits Assessment:: 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 I discussed this with her the levels of the L3-L4 L4-L5. We will send her for seated flexion and extension x-rays to see if this would be plausible. Patient's not on any anticoagulation therapy. She is continuing a home stretching program. Patient is failed over 6 months of conservative treatment. Including medications and injective therapies Dr. James has reviewed this note and agrees with this plan of care. This note was dictated using voice recognition software and may contain errors or omissions
== END ==
PROVIDERS: PCP Emergency Medicine; Visit Provider Clinical Nurse Specialist Family Health
DX: M48.062 Spinal stenosis, lumbar region with neurogenic claudication (principal); M54.9 Dorsalgia, unspecified
CPT/HCPCS: 72100; 99213

== ENCOUNTER → 2018-08-28 11:01 | Outpatient (CLI) | payer MEDICARE, OTHER, MEDICAID, SELFPAY ==
[2018-08-28 11:57] LABS: Amphetamine/Metha Screen,Urine Negative ng/mL (<1000); Barbiturates Screen,Urine Negative ng/mL (<200); Benzodiazepines Screen,Urine Negative ng/mL (<200); Cannabinoid Screen,Urine Negative ng/mL (<50); Cocaine Screen,Urine Negative ng/mL (<300); Methadone Screen,Urine Negative ng/mL (<300); Opiate Screen,Urine Negative ng/mL (<300); Phencyclidine Screen,Urine Negative ng/mL (<25)
== END ==
PROVIDERS: Visit Provider Nurse Practitioner Family
DX: Z79.899 Other long term (current) drug therapy (principal); R31.9 Hematuria, unspecified; Z79.4 Long term (current) use of insulin; E11.9 Type 2 diabetes mellitus without complications
CPT/HCPCS: 80305; 87086

== ENCOUNTER → 2018-09-17 08:44 | Outpatient (POV) | payer MEDICARE, OTHER, MEDICAID, SELFPAY | PROVIDERS: Visit Provider Podiatrist | DX: Z00.00 Encounter for general adult medical examination without abnormal findings (principal) ==

== ENCOUNTER → 2018-09-28 14:42 | Outpatient (CLI) | payer MEDICARE, OTHER, MEDICAID, SELFPAY ==
[2018-09-30 08:32] LABS: HSV 2 IgG, Type Spec <0.91 index (0.00-0.90)
== END ==
PROVIDERS: Visit Provider Nurse Practitioner Obstetrics & Gynecology
DX: L02.91 Cutaneous abscess, unspecified (principal); Z72.51 High risk heterosexual behavior
CPT/HCPCS: 36415; 86695; 86790

== ENCOUNTER → 2018-10-08 15:22 | Outpatient (CLI) | payer MEDICARE, OTHER, MEDICAID, SELFPAY ==
--- NOTE | 2018-10-08 15:46 | MM_ITS ---
MM Dig mamm DX unilat LT CAD INDICATION: 6 month follow-up, follow-up abnormal mammogram ORDERING PHYSICIAN: Jamel Butler MD PATIENT AGE: 53 years COMPARISON: 01/22/2018, 02/17/2018, 07/14/2017 TECHNIQUE: Standard images performed along with mag views FINDINGS: There are scattered areas of asymmetry which are felt to be due to asymmetric islands of breast tissue. A cluster of calcifications once again noted in the deep upper outer left breast which overall do not appear significantly changed compared to 07/14/2017. These are difficult to localize due to their deep nature. Continued six-month follow-up is suggested. There was some asymmetric density in the central aspect of left breast which is not significant change likely due to asymmetric fibroglandular tissue. IMPRESSION: No significant change in the cluster of calcifications in the outer aspect of the left breast. Month follow-up recommended. BI-RADS Category: 3 Probably Benign Finding Short Term Follow-up RECOMMENDED FOLLOW-UP: 6M - 6 MONTH FOLLOW-UP (A letter has been sent to the patient regarding results of the study.)
== END ==
PROVIDERS: PCP Emergency Medicine; Visit Provider Nurse Practitioner Obstetrics & Gynecology
DX: R92.8 Other abnormal and inconclusive findings on diagnostic imaging of breast (principal)
CPT/HCPCS: 77065; 77067

== ENCOUNTER 2018-10-13 10:00 | Observation (INO) ==
--- NOTE | 2018-10-13 10:17 | Emergency Department Note ---
ED Disposition Clinical Impression: Colitis Disposition: Admitted as Observation Condition on Discharge: Fair Referrals: Tien Wade MD [Primary Care Provider] - - Critical Care Critical Care Time: No Attestation: On , the high probability of a clinically significant, sudden or life threatening deterioration of the following system(s) required my full and direct attention, intervention and personal management. The time I documented below is in addition to time spent performing reported procedures but includes the following listed in this critical care notation. Medical Decision Making - Agustín Inquiry Pt receiving controlled substance: Yes Agustín was queried for this patient: Yes Reference #:: [id number] Risks and benefits of using a controlled substance: were not discussed with pt by me Comment: 25 rxs. last rxs gabapetin and tramadol. Vital Signs: 10/13/18 10:08 10/13/18 10:36 10/13/18 11:23 Temperature 98.3 F Temperature Source Oral Pulse Rate [Right Radial] 86 53 L 91 H Respiratory Rate 18 Blood Pressure [Right Arm] 162/94 H 153/73 H 137/64 Blood Pressure Mean [Right Arm] 116 99 88 Blood Pressure Source [Right Arm] Automatic Cuff Automatic Cuff Automatic Cuff Blood Pressure Position [Right Arm] Supine Supine Supine 02 Sat by Pulse Oximetry 100 96 94 L Oxygen Delivery Method Room Air Room Air Room Air - Lab Data Lab Results 10/13/18 10:08: WBC 9.6, RBC 4.93, Hgb 14.6, Hct 44.1, MCV 89.6, MCH 29.6, MCHC 33.0, RDW 13.7, Plt Count 238, MPV 8.9, Neut % (Auto) 86.8 H, Lymph % (Auto) 6.9 L, Rhea % (Auto) 5.7, Eos % (Auto) 0.2, Baso % (Auto) 0.4, Neut # (Auto) 8.3 H, Lymph # (Auto) 0.7, Rhea # (Auto) 0.6, Eos # (Auto) 0.0, Baso # (Auto) 0.0, Total Counted 100, Neutrophils % (Manual) 90 H, Lymphocytes % (Manual) 7 L, Monocytes % (Manual) 2, Eosinophils % (Manual) 1, Platelet Estimate Slight decrease, RBC Morphology Normal 10/13/18 10:08: Sodium 135 L, Potassium 3.9, Chloride 97 L, Carbon Dioxide 25, Anion Gap 16.9 H, BUN 15, Creatinine 1.13 H, Estimated Creat Clear 100, Estimated GFR 51 L, Est GFR ( Amer) 61, Glucose 464 H*, Calcium 9.8, Total Bilirubin 0.8, AST 18, ALT 35, Alkaline Phosphatase 127 H, Troponin I < 0.02, Total Protein 8.2, Albumin 4.1, Globulin 4.1 H, Albumin/Globulin Ratio 1.0 L, Lipase 243 10/13/18 10:08: Acetone Level None detected 10/13/18 10:51: VBG pH 7.41, VBG pCO2 36.2, VBG pO2 38.6, VBG HCO3 22.4 L, VBG Total CO2 23.5, VBG O2 Saturation 71.0 H, VBG Base Excess -2.2 10/13/18 11:40: Urine Color Yellow, Urine Appearance Clear, Urine pH 6.0, Ur Specific [place] <= 1.005, Urine Protein Negative, Urine Glucose (UA) 3+, Urine Ketones 1+, Urine Blood Negative, Urine Nitrate Negative, Urine Bilirubin Negative, Urine Urobilinogen 0.2, Ur Leukocyte Esterase Negative, Ur Squamous Epith Cells 3-5, Urine Bacteria Trace Result diagrams: 10/13/18 10:08 10/13/18 10:08 Orders (Tests/Meds): ED MEDICATIONS Discontinued Medications Generic Name Dose Route Start Last Admin Trade Name Kamilah PRN Reason Stop Dose Admin Insulin Human Lispro 15 unit 10/13/18 11:42 10/13/18 11:55 Humalog 100 Units/Ml 3ml Vial (Ssi) SQ 10/13/18 11:43 15 unit ONCE ONE Administration Ketorolac Tromethamine 30 mg 10/13/18 10:15 10/13/18 10:22 Toradol 30mg/Ml Vial IV 10/13/18 10:16 30 mg ONCE ONE Administration Morphine Sulfate 2 mg 10/13/18 10:52 10/13/18 11:32 Morphine 4mg/Ml Syringe IV 10/13/18 10:53 2 mg ONCE ONE Administration Ondansetron HCl 4 mg 10/13/18 10:15 10/13/18 10:22 Zofran 4mg/2ml Vial IV 10/13/18 10:16 4 mg ONCE ONE Administration Promethazine HCl 12.5 mg 10/13/18 10:52 10/13/18 11:32 Phenergan 25mg/Ml 1ml Vial IV 10/13/18 10:53 12.5 mg ONCE ONE Administration Sodium Chloride 1,000 ml 10/13/18 10:22 10/13/18 10:22 Sod Chlor 0.9% 1000ml Bag IV 10/13/18 10:23 1,000 ml BOLUS ONE Administration Sodium Chloride 25 ml 10/13/18 10:52 10/13/18 11:32 Sod Chlor 0.9% 25ml Bag IV 10/13/18 10:53 25 ml ONCE ONE Administration ORDERS Category Date Time Status Diarrhea 23 Panel, PCR Stat Lab 10/13/18 10:22 Ordered - CT Data CT Scan: Abdomen, Pelvis Time Received: 11:[address] Reviewed: Yes: I have viewed the radiologist's interpretation Findings Narrative: IMPRESSION: 1. Mild thickening of the transverse and descending colon which could be due to nondistention or colitis. 2. Otherwise negative CT abdomen pelvis Dictated By: Mark Albert MD Signed By: <Electronically signed by Mark Albert MD in OV> 10/13/18 1133 - ECG Data Tracing #1 EKG interpreted by Phoenix Baker MD: Rhythm: sinus bradycardia Rate: 50 [place]: normal Ectopy: none Conduction: normal ST Segment Changes: none T Wave Changes: none Q Waves: none No evidence of acute ischemia or injury - Physician Consults Physician Consulted: Sheri Time: 12:11 Reason -: Admission Comment/Response: Agrees to admit the patient to the hospital. We discussed the patient's clinical information, including history, exam, laboratory and radiology results and ED course. Per hospital procedure, I will write temporary bridge inpatient orders on the patient. Specific orders requested by the admitting physician: Sliding scale insulin, IV fluids, nausea medication - Reevaluation(s) Time: 12:05 Reevaluation #1: States she does not feel any better at all. No diarrhea since arriving in the emergency department. General Adult HPI - General Chief complaint: Nausea/Vomiting/Diarrhea Stated complaint: stomach/back pain Time Seen by Provider: 10/13/18 10:16 Mode of Arrival: Ambulatory Limitations: No Limitations Description of Symptoms (Recalled from ER Triage Doc. by RN): Abdominal pain, nausea, vomiting - History of Present Illness HPI narrative: Woke up at 3 AM with sweatiness, epigastric pain, nausea, and diarrhea. Has not vomited. Has had diarrhea about every hour. No recent hospitalizations, surgeries, antibiotics, or travel. - Related Data Home Medications Medication Instructions Recorded Confirmed Blood-Glucose Meter [Glucocard 0 each .ROUTE .MEDSUPPLY 09/29/17 10/13/18 Shine Xl] levonorgestrel 20 mcg/24 hours (5 1 insert INTRAUTERI ONCE 01/06/18 10/13/18 yrs) 52 mg intrauterine device multivit with 1 tab PO DAILY 01/13/18 10/13/18 [id number] 8 mg iron-400 mcg-300 mcg tablet linaclotide 72 mcg capsule 72 mcg PO DAILY 30 Days #30 cap 05/14/18 10/13/18 Aspirin [Low Dose Aspirin EC] 81 mg PO DAILY 09/07/18 10/13/18 liraglutide 0.6 mg/0.1 mL (18 mg/3 1.2 mg SQ DAILY 30 Days #9 09/28/18 10/13/18 mL) subcutaneous pen injector Levothyroxine Sodium [Synthroid See Rx Instructions .ROUTE .COMPLEX 10/13/18 10/13/18 100mcg (0.1mg) tablet] Lidocaine [Lidocaine 5% ointment 1 applic TOPICAL DAILY 10/13/18 10/13/18 35gm tube] Lisinopril/Hydrochlorothiazide See Rx Instructions .ROUTE .COMPLEX 10/13/18 10/13/18 [Lisinopril-Hctz 20-12.5 mg Tab] Valacyclovir HCl [Valacyclovir] 1,000 mg PO DAILY 10/13/18 10/13/18 Previous Rx's Medication Instructions Recorded fluticasone propionate 50 50 mcg INTRANASAL ONCE PRN #9.9 g 07/02/18 mcg/actuation nasal spray,suspension atorvastatin 40 mg tablet 40 mg PO DAILY #90 tab 09/03/18 ranitidine 150 mg tablet 150 mg PO BID 90 Days #180 tab 09/25/18 gabapentin 800 mg tablet 800 mg PO TID #90 tab 09/28/18 tramadol 50 mg tablet 50 mg PO BID #60 tab 09/28/18 duloxetine 60 mg capsule,delayed 60 mg PO DAILY #30 cap 09/30/18 release fluoxetine 40 mg capsule 40 mg PO DAILY #30 cap 09/30/18 trazodone 50 mg tablet 50 mg PO QHS #60 tab 09/30/18 Allergies Allergy/AdvReac Type Severity Reaction Status Date / Time milnacipran [From SAVELLA] Allergy Severe NA-NAUSEA/V Verified 10/13/18 10:13 OMITING pregabalin [From LYRICA] Allergy Severe NA-NAUSEA, Verified 10/13/18 10:13 HEADACHE modafinil [From PROVIGIL] Allergy Unknown I-RASH Verified 10/13/18 10:13 [facility] History - Hepatitis A Screen Drug use history?: No High risk sexual behaviors?: No History of sexually transmitted infection?: No Currently employed?: No Childcare worker?: No Do you have indoor plumbing?: Yes Do you have electricity?: Yes Attestation statement:: This patient has been screened for Hepatitis A risk factors. I have reviewed the patient's past medical history: Yes Medical History: Reports:: Anxiety, Depression, Diabetes Mellitus Type 2, Gastroesophageal Reflux Disease(GERD), Hyperlipidemia, Hypertension, Lung Disease Denies:: Diabetes Mellitus Type 1, Internal Pacemaker, Seizures Other Medical History: Reports: Arthritis, Fibromyalgia, Hypothyroidism, Thyroid Disease Comment: CARITO Laterality Cases: Other Surgeries: Yes: Other (breast reduction). No: Pacemaker Amputation: No Fractures: No Comment: breast reduction - Social History Smoking Status: Never smoker Alcohol Intake: never Alcohol Intake Frequency:: other Substance Use Type: denies use Occupational Status: disabled Housing: house Household Members: family - Psychiatric History Pschychiatric History:: Reports:: Anxiety, Depression Family Hx:: Hypertension, Hyperlipidemia, Thyroid Disorder, Cancer, Heart Attack ROS Obtained: Yes All systems reviewed & no additional complaints - Constitutional Constitutional: Reports excessive sweating, Denies fever(s) - Cardiovascular Cardiovascular: Denies chest pain - Respiratory Respiratory: No dyspnea - Gastrointestinal Gastrointestingal: Reports: abdominal pain, diarrhea, nausea. Denies: vomiting Physical Exam - General General appearance: alert, in no apparent distress - Head Head exam: atraumatic, normocephalic - Eye Eye exam: Present: normal appearance, EOMI - ENT ENT exam: Present: mucous membranes dry - Neck Neck exam: Present: normal inspection, trachea midline - Chest Chest inspection: Present: normal inspection, symmetric chest wall rise - Respiratory Respiratory exam: Present: normal lung sounds bilaterally. Absent: respiratory distress - Cardiovascular Cardiovascular exam: Present: regular rate, normal rhythm, normal heart sounds - Abdominal Exam Abdominal exam: Present: soft, tenderness, normal bowel sounds. Absent: distention, guarding, rebound Abdominal tenderness: Present: epigastrium - Extremities Exam Extremities exam: Present: normal inspection - Neurological Exam Neurological exam: Present: alert, oriented X3 - Psychiatric Psychiatric exam: Present: normal affect, normal mood - Skin Skin exam: Present: warm, dry
[2018-10-13 10:33] LABS: Basophils % 0.4 % (0.1-2.0); Eosinophils % 0.2 % (0.1-12.0); Hematocrit 44.1 % (37.0-47.0); Hemoglobin 14.6 g/dL (12.2-16.2); Lymphocytes # 0.7 K/mm3 (0.7-4.5); Lymphocytes % 6.9 % (10-50); Mean Corpuscular Hemoglobin 29.6 pg (27.0-31.2); Mean Corpuscular Volume 89.6 fl (81-99); Mean Platelet Volume 8.9 fl (7.4-10.4); Monocytes # 0.6 K/mm3 (0.1-1.0); Monocytes % 5.7 % (1.7-9.3); Neutrophils # 8.3 K/mm3 (1.8-7.8); Neutrophils % 86.8 % (37.0-80.0); Platelet Count 238 K/mm3 (142-424); Red Blood Count 4.93 M/mm3 (4.20-5.40); Red Cell Distribution Width 13.7 % (11.5-17.5); White Blood Count 9.6 K/mm3 (4.8-10.8)
[2018-10-13 10:42] LABS: Alanine Aminotransferase 35 U/L (12-78); Albumin Level 4.1 gm/dL (3.4-5.0); Alkaline Phosphatase 127 U/L (46-116); Anion Gap 16.9 mEq/L (5-15); Aspartate Amino Transferase 18 U/L (15-37); Bilirubin,Total 0.8 mg/dL (0.2-1.0); Blood Urea Nitrogen 15 mg/dL (7-18); Calcium 9.8 mg/dL (8.5-10.1); Carbon Dioxide 25 mmol/L (21.0-32.0); Chloride 97 mmol/L (98-107); Globulin 4.1 gm/dl (1.3-3.2); Lipase 243 u/L (73-393); Potassium 3.9 mmoL/L (3.5-5.1); Sodium 135 mmol/L (136-145); Total Protein,Serum 8.2 gm/dL (6.4-8.2)
[2018-10-13 10:44] LABS: Glucose 464 mg/dL (74-106)
[2018-10-13 11:22] LABS: Eosinophils % 1 % (0-3); Lymphocytes % 7 % (10-50); Monocytes % 2 % (2-9); Neutrophils % 90 % (42-76); Total Cells Counted 100
[2018-10-13 11:23] LABS: RBC Morphology Normal
[2018-10-13 11:37] LABS: VBG Base Excess -2.2 mmol/L (-2.4-2.3); VBG HCO3 22.4 mmol/L (23-30); VBG PCO2 36.2 mmol/L (35-51); VBG PH 7.41 mmol/L (7.31-7.41); VBG PO2 38.6 mmol/L (28-40); VBG Total CO2 23.5 mmol/L (23-27)
[2018-10-13 11:50] LABS: Appearance,Urine CLEAR (Clear); Bilirubin,Urine Negative (Negative); Blood, Urine Negative (Negative); Color,Urine YELLOW (Yellow); Glucose,Urine (UA) 3+ (Negative); Ketones,Urine 1+ (Negative); Leukocyte Esterase,Urine Negative (Negative); Microscopic, Urine URINE MICROSCOPIC (MICROSCOPIC); Protein,Urine Negative (Negative); Specific Gravity, Urine <= 1.005 (1.005-1.030); Urobilinogen,Urine 0.2 EU/dl (0.2)
[2018-10-13 12:12] LABS: Bacteria,Urine Trace /lpf
--- NOTE | 2018-10-13 14:47 | Pharmacy Consult Notes ---
[facility] Pharmacy VTE Monitoring - Patient Demographics Admission date: 10/13/18 Report Date: 10/13/18 Time: 14:47 Allergies/Adverse Reactions: Patient Allergies milnacipran [From SAVELLA] Allergy (Severe, Verified 10/13/18 10:13) NA-NAUSEA/VOMITING pregabalin [From LYRICA] Allergy (Severe, Verified 10/13/18 10:13) NA-NAUSEA, HEADACHE modafinil [From PROVIGIL] Allergy (Unknown, Verified 10/13/18 10:13) I-RASH Height: 1.68 m Weight: 105.143 kg Patient Problems: Current Active Problems (Updated 10/13/18 @ 12:12 by Phoenix Baker MD) Colitis (Acute) - VTE Risk Labs: VTE Related Lab Results Hgb 14.6 g/dL (12.2-16.2) 10/13/18 10:08 Hct 44.1 % (37.0-47.0) 10/13/18 10:08 Plt Count 238 K/mm3 (142-424) 10/13/18 10:08 BUN 15 mg/dL (7-18) 10/13/18 10:08 Creatinine 1.13 mg/dL (0.55-1.02) H 10/13/18 10:08 Estimated Creat Clear 100 mL/min (50-200) 10/13/18 10:08 Was VTE Risk Assessment Performed: Yes VTE Score: 3 VTE Risk Level: Low Risk Clinical Trial Participant: No - Prophylaxis Types of VTE Prophylaxis: TEDS Knee High Location of Applied Device: Bilateral Lower Extremeties
--- NOTE | 2018-10-13 20:08 | History & Physical Report ---
*Admission Date: 10/13/18 *Chief complaint: abd pain *History of present illness: this wf presented to the [facility] ed with c/coke up at 3 AM with sweatiness, epigastric pain, nausea, and diarrhea. Has not vomited. Has had diarrhea about every hour. No recent hospitalizations, surgeries, antibiotics, or travel. pt was given ivf and still was having sig sx and glu uncontrolled - pt was admitted for ivf and eval [facility] History I have reviewed the patient's past medical history: Yes Medical History: Reports:: Anxiety, Depression, Diabetes Mellitus Type 2, Gastroesophageal Reflux Disease(GERD), Hyperlipidemia, Hypertension, Lung Disease Denies:: Cancer, Diabetes Mellitus Type 1, Internal Pacemaker, MRSA, Seizures *Have you ever received a pneumonia vaccine?: Yes *Have you received a flu vaccine this season?: Yes Other Medical History: Reports: Arthritis, Fibromyalgia, Hypothyroidism, Thyroid Disease Laterality Cases: Right: Carpal Tunnel Release, Bilateral: Breast Biopsy, Other Other Surgeries: Yes: Other (breast reduction). No: Pacemaker Amputation: No Fractures: No - *Social History Educational Level: Completed College Smoking Status: Never smoker Alcohol Intake: never Alcohol Intake Frequency:: other Substance Use Type: denies use *Occupational Status:: disabled Housing: apartment Household Members: none *Travel in the last 8 weeks: None - Psychiatric History Expresses thoughts of harming self/others: None Suicide Plan Description: No Plan Pschychiatric History:: Reports:: Anxiety, Depression Family Hx:: Hypertension, Hyperlipidemia, Thyroid Disorder, Cancer, Heart Attack Review of Systems - Review of Systems Review of systems:: pertinent systems reviewed and negative unless documented below - Constitutional Reports weakness, Denies fever(s) - Eyes Denies change in vision - ENT Denies sore throat - *Cardiovascular Denies chest pain at rest - *Respiratory Denies cough - *Gastrointestinal Reports loose stools, Reports nausea, Reports vomiting, Denies abdominal pain - *Genitourinary Denies abnormal vaginal bleeding - *Musculoskeletal Denies joint pain, Denies neck pain - Integumentary/Breasts Denies rash - *Neurologic Reports dizziness, Reports fainting, Denies localized weakness, Denies seizure- like activity - Psychiatric Denies anxiety Meds Home Medications Medication Instructions Recorded Confirmed Type levonorgestrel 20 mcg/24 hours (5 1 insert INTRAUTERI ONCE 01/06/18 10/13/18 History yrs) 52 mg intrauterine device multivit with 1 tab PO DAILY 01/13/18 10/13/18 History vdqsdebu-uvrp-YM-lutein 8 mg iron-400 mcg-300 mcg tablet linaclotide 72 mcg capsule 72 mcg PO DAILY 30 Days #30 cap 05/14/18 10/13/18 History atorvastatin 40 mg tablet 40 mg PO DAILY #90 tab 09/03/18 10/13/18 Rx Aspirin [Low Dose Aspirin EC] 81 mg PO DAILY 09/07/18 10/13/18 History ranitidine 150 mg tablet 150 mg PO BID 90 Days #180 tab 09/25/18 10/13/18 Rx gabapentin 800 mg tablet 800 mg PO TID #90 tab 09/28/18 10/13/18 Rx liraglutide 0.6 mg/0.1 mL (18 mg/3 1.8 mg SQ DAILY 30 Days #9 09/28/18 10/13/18 History mL) subcutaneous pen injector tramadol 50 mg tablet 50 mg PO BID #60 tab 09/28/18 10/13/18 Rx duloxetine 60 mg capsule,delayed 60 mg PO DAILY #30 cap 09/30/18 10/13/18 Rx release fluoxetine 40 mg capsule 40 mg PO DAILY #30 cap 09/30/18 10/13/18 Rx Fluticasone Propionate 1 spray INTRANASAL DAILY 10/13/18 10/13/18 History Insulin Detemir [Levemir 40 units SQ DAILY 10/13/18 10/13/18 History 100units/mL 3mL flexpen] Levothyroxine Sodium [Synthroid 100 mcg PO DAILY 10/13/18 10/13/18 History 100mcg (0.1mg) tablet] Lidocaine [Lidocaine 5% ointment 1 applic TOPICAL DAILY 10/13/18 10/13/18 History 35gm tube] Lisinopril/Hydrochlorothiazide 1 tab PO DAILY 10/13/18 10/13/18 History [Lisinopril-Hctz 20-12.5 mg Tab] Trazodone HCl 1 - 2 tab PO HSP PRN 10/13/18 10/13/18 History Valacyclovir HCl [Valacyclovir] 1,000 mg PO DAILY 10/13/18 10/13/18 History Allergies Allergy/AdvReac Type Severity Reaction Status Date / Time milnacipran [From SAVEA] Allergy Severe NA-NAUSEA/V Verified 10/13/18 10:13 OMITING pregabalin [From LYRICA] Allergy Severe NA-NAUSEA, Verified 10/13/18 10:13 HEADACHE modafinil [From PROVIGIL] Allergy Unknown I-RASH Verified 10/13/18 10:13 Exam Vital signs and Labs for Last 24 Hours: Temp Pulse Resp BP Pulse Ox 98.0 F 99 H 18 146/71 H 98 10/13/18 15:47 10/13/18 19:33 10/13/18 19:33 10/13/18 19:33 10/13/18 19:33 Laboratory Results - last 24 hr 10/13/18 10:08: WBC 9.6, RBC 4.93, Hgb 14.6, Hct 44.1, MCV 89.6, MCH 29.6, MCHC 33.0, RDW 13.7, Plt Count 238, MPV 8.9, Neut % (Auto) 86.8 H, Lymph % (Auto) 6.9 L, [place] % (Auto) 5.7, Eos % (Auto) 0.2, Baso % (Auto) 0.4, Neut # (Auto) 8.3 H, Lymph # (Auto) 0.7, [place] # (Auto) 0.6, Eos # (Auto) 0.0, Baso # (Auto) 0.0, Total Counted 100, Neutrophils % (Manual) 90 H, Lymphocytes % (Manual) 7 L, Monocytes % (Manual) 2, Eosinophils % (Manual) 1, Platelet Estimate Slight decrease, RBC Morphology Normal 10/13/18 10:08: Sodium 135 L, Potassium 3.9, Chloride 97 L, Carbon Dioxide 25, Anion Gap 16.9 H, BUN 15, Creatinine 1.13 H, Estimated Creat Clear 100, Estima anu GFR 51 L, Est GFR ( Amer) 61, Glucose 464 H*, Calcium 9.8, Total Bilirubin 0.8, AST 18, ALT 35, Alkaline Phosphatase 127 H, Troponin I < 0.02, Total Protein 8.2, Albumin 4.1, Globulin 4.1 H, Albumin/Globulin Ratio 1.0 L, Lipase 243 10/13/18 10:08: Acetone Level None detected 10/13/18 10:51: VBG pH 7.41, VBG pCO2 36.2, VBG pO2 38.6, VBG HCO3 22.4 L, VBG Total CO2 23.5, VBG O2 Saturation 71.0 H, VBG Base Excess -2.2 10/13/18 11:40: Urine Color Yellow, Urine Appearance Clear, Urine pH 6.0, Ur Specific [place] <= 1.005, Urine Protein Negative, Urine Glucose (UA) 3+, Urine Ketones 1+, Urine Blood Negative, Urine Nitrate Negative, Urine Bilirubin Negative, Urine Urobilinogen 0.2, Ur Leukocyte Esterase Negative, Ur Squamous Epith Cells 3-5, Urine Bacteria Trace 10/13/18 12:23: POC Glucose 399 H* 10/13/18 16:02: POC Glucose 311 H* I & O for Last 24 hours: Intake & Output 10/11/18 10/12/18 10/13/18 10/14/18 11:59 11:59 11:59 11:59 Intake Total 627 / 627 Balance 627 / 627 Weight 240 lb 231 lb 12.8 oz - Constitutional no acute distress, obese - *Routine HEENT Exam Head: Present: normocephalic Eye: Present: EOMI, PERRL. Absent: conjunctival icterus ENT: Present: mucous membranes dry - *Routine Neck Exam Present: supple - *Routine Respiratory Exam Present: CTA bilaterally - *Routine Cardiovascular Exam Present: RRR, murmur - *Routine Abdominal Exam Present: soft - *Routine Extremities Exam Present: full ROM - *Routine Skin Exam Present: intact - *Routine Neurological Exam Present: alert, oriented X3, CN II-XII intact - Routine Psychiatric Exam Present: normal affect Assessment and Plan (1) Colitis Current visit: Yes Status: Acute Category: Medical Code(s): K52.9 - Noninfective gastroenteritis and colitis, unspecified (2) Fibromyalgia Current visit: No Status: Acute Category: Medical Code(s): M79.7 - Fibromyalgia (3) DJD (degenerative joint disease) Current visit: No Status: Chronic Qualifiers: Osteoarthritis location: multiple joints Osteoarthritis type: other secondary Qualified Code(s): 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 Category: Medical Code(s): M19.90 - Unspecified osteoarthritis, unspecified site (4) Diabetes Current visit: No Status: Chronic Qualifiers: Diabetes mellitus type: type 2 Diabetes mellitus oysterman insulin use: with oysterman use Diabetes mellitus complication status: with unspecified complications Qualified Code(s): E11.8 - Type 2 diabetes mellitus with unspecified complications; Z79.4 - FPC (current) use of insulin Category: Medical Code(s): E11.9 - Type 2 diabetes mellitus without complications (5) Hypothyroidism Current visit: No Status: Chronic Qualifiers: Hypothyroidism type: acquired Qualified Code(s): E03.9 - Hypothyroidism, unspecified Category: Medical Code(s): E03.9 - Hypothyroidism, unspecified (6) Renal insufficiency Current visit: Yes Status: Acute Category: Medical Code(s): N28.9 - Disorder of kidney and ureter, unspecified (7) Obesity (BMI 30-39.9) Current visit: Yes Status: Acute Category: Medical Code(s): E66.9 - Obesity, unspecified (8) GERD (gastroesophageal reflux disease) Current visit: Yes Status: Acute Category: Medical Code(s): K21.9 - Gastro-esophageal reflux disease without esophagitis (9) Hyperlipidemia Current visit: Yes Status: Acute Qualifiers: Hyperlipidemia type: unspecified Qualified Code(s): E78.5 - Hyperlipidemia, unspecified Category: Medical Code(s): E78.5 - Hyperlipidemia, unspecified (10) HTN (hypertension) Current visit: Yes Status: Acute Qualifiers: Hypertension type: essential hypertension Qualified Code(s): I10 - Essential (primary) hypertension Category: Medical Code(s): I10 - Essential (primary) hypertension
[2018-10-14 08:31] LABS: Basophils % 0.3 % (0.1-2.0); Eosinophils # 0.1 K/mm3 (0.0-0.4); Eosinophils % 0.5 % (0.1-12.0); Hematocrit 40.5 % (37.0-47.0); Hemoglobin 13.5 g/dL (12.2-16.2); Lymphocytes # 1.4 K/mm3 (0.7-4.5); Lymphocytes % 12.4 % (10-50); Mean Corpuscular HGB Conc 33.3 g/dL (31.8-35.4); Mean Corpuscular Hemoglobin 29.5 pg (27.0-31.2); Mean Corpuscular Volume 88.5 fl (81-99); Mean Platelet Volume 8.4 fl (7.4-10.4); Monocytes # 0.7 K/mm3 (0.1-1.0); Monocytes % 6.5 % (1.7-9.3); Neutrophils # 9.1 K/mm3 (1.8-7.8); Neutrophils % 80.4 % (37.0-80.0); Platelet Count 209 K/mm3 (142-424); Red Blood Count 4.58 M/mm3 (4.20-5.40); Red Cell Distribution Width 13.8 % (11.5-17.5); White Blood Count 11.3 K/mm3 (4.8-10.8)
[2018-10-14 08:56] LABS: Calcium 8.1 mg/dL (8.5-10.1)
--- NOTE | 2018-10-14 13:35 | Consult Report ---
*Admission Date: 10/13/18 *Chief complaint: Abdominal pain, diarrhea *History of present illness: Patient is a 53-year-old white female whom I have seen in the past. I saw her one year ago as an outpatient referral diascopy. At that time she gave a history of early satiety, abdominal bloating, and occasional vomiting. I performed upper endoscopy on her on 09/30/2017 which was essentially normal other than some gastric fundic gland polyps. Due to her symptomatology and relatively unremarkable upper endoscopy I did a gallbladder work-up including ultrasound and HIDA scan which were completely normal. Patient states that she had been clinically diagnosed with gastroparesis a couple of years ago when I had referred her to Dr. [place]. He performed colonoscopy last month which was completely normal. She states that she was in her usual state of health until yesterday morning approximately 3 AM at which time she awoke with significant diarrhea. She moves her bowels multiple times occurring about once every hour. Due to her symptoms that she presented to the emergency department yesterday morning. She had a noncontrast CT scan which revealed findings of possible colitis versus nondistention. She was admitted for inpatient management yesterday morning. She has had ongoing upper abdominal discomfort. She has not had any additional diarrhea. Surgical consultation was obtained for possible upper endoscopy. Review of Systems - Review of Systems Review of systems:: pertinent systems reviewed and negative unless documented below - *Neurologic Reports dizziness, Reports fainting, Reports weakness, Denies localized weakness, Denies seizure-like activity [facility] History Medical History: Reports:: Anxiety, Depression, Diabetes Mellitus Type 2, Gastroesophageal Reflux Disease(GERD), Hyperlipidemia, Hypertension, Lung Disease Denies:: Cancer, Diabetes Mellitus Type 1, Internal Pacemaker, MRSA, Seizures *Have you ever received a pneumonia vaccine?: Yes *Have you received a flu vaccine this season?: Yes Other Medical History: Reports: Arthritis, Fibromyalgia, Hypothyroidism, Thyroid Disease Laterality Cases: Right: Carpal Tunnel Release, Bilateral: Breast Biopsy, Other Other Surgeries: Yes: Other (breast reduction). No: Pacemaker Amputation: No Fractures: No - *Social History Educational Level: Completed College Smoking Status: Never smoker Alcohol Intake: never Alcohol Intake Frequency:: other Substance Use Type: denies use *Occupational Status:: disabled Housing: apartment Household Members: none *Travel in the last 8 weeks: None - Psychiatric History Expresses thoughts of harming self/others: None Suicide Plan Description: No Plan Pschychiatric History:: Reports:: Anxiety, Depression Family Hx:: Hypertension, Hyperlipidemia, Thyroid Disorder, Cancer, Heart Attack Meds Home Medications Medication Instructions Recorded Confirmed Type levonorgestrel 20 mcg/24 hours (5 1 insert INTRAUTERI ONCE 01/06/18 10/13/18 History yrs) 52 mg intrauterine device multivit with 1 tab PO DAILY 01/13/18 10/13/18 History jsffvbuk-jium-UB-lutein 8 mg iron-400 mcg-300 mcg tablet linaclotide 72 mcg capsule 72 mcg PO DAILY 30 Days #30 cap 05/14/18 10/13/18 History atorvastatin 40 mg tablet 40 mg PO DAILY #90 tab 09/03/18 10/13/18 Rx Aspirin [Low Dose Aspirin EC] 81 mg PO DAILY 09/07/18 10/13/18 History ranitidine 150 mg tablet 150 mg PO BID 90 Days #180 tab 09/25/18 10/13/18 Rx gabapentin 800 mg tablet 800 mg PO TID #90 tab 09/28/18 10/13/18 Rx liraglutide 0.6 mg/0.1 mL (18 mg/3 1.8 mg SQ DAILY 30 Days #9 09/28/18 10/13/18 History mL) subcutaneous pen injector tramadol 50 mg tablet 50 mg PO BID #60 tab 09/28/18 10/13/18 Rx duloxetine 60 mg capsule,delayed 60 mg PO DAILY #30 cap 09/30/18 10/13/18 Rx release fluoxetine 40 mg capsule 40 mg PO DAILY #30 cap 09/30/18 10/13/18 Rx Fluticasone Propionate 1 spray INTRANASAL DAILY 10/13/18 10/13/18 History Insulin Detemir [Levemir 40 units SQ DAILY 10/13/18 10/13/18 History 100units/mL 3mL flexpen] Levothyroxine Sodium [Synthroid 100 mcg PO DAILY 10/13/18 10/13/18 History 100mcg (0.1mg) tablet] Lidocaine [Lidocaine 5% ointment 1 applic TOPICAL DAILY 10/13/18 10/13/18 History 35gm tube] Lisinopril/Hydrochlorothiazide 1 tab PO DAILY 10/13/18 10/13/18 History [Lisinopril-Hctz 20-12.5 mg Tab] Trazodone HCl 1 - 2 tab PO HSP PRN 10/13/18 10/13/18 History Valacyclovir HCl [Valacyclovir] 1,000 mg PO DAILY 10/13/18 10/13/18 History Allergies Allergy/AdvReac Type Severity Reaction Status Date / Time milnacipran [From SAVELLA] Allergy Severe NA-NAUSEA/V Verified 10/13/18 10:13 OMITING pregabalin [From LYRICA] Allergy Severe NA-NAUSEA, Verified 10/13/18 10:13 HEADACHE modafinil [From PROVIGIL] Allergy Unknown I-RASH Verified 10/13/18 10:13 Exam Vital signs and Labs for Last 24 Hours: Temp Pulse Resp BP Pulse Ox 98.2 F 62 18 134/75 97 10/14/18 08:00 10/14/18 08:00 10/14/18 08:00 10/14/18 08:00 10/14/18 08:00 Laboratory Results - last 24 hr 10/13/18 16:02: POC Glucose 311 H* 10/13/18 21:05: POC Glucose 241 H 10/14/18 06:14: POC Glucose 211 H 10/14/18 08:15: WBC 11.3 H, RBC 4.58, Hgb 13.5, Hct 40.5, MCV 88.5, MCH 29.5, MCHC 33.3, RDW 13.8, Plt Count 209, MPV 8.4, Neut % (Auto) 80.4 H, Lymph % (Auto) 12.4, [place] % (Auto) 6.5, Eos % (Auto) 0.5, Baso % (Auto) 0.3, Neut # (Auto) 9.1 H, Lymph # (Auto) 1.4, [place] # (Auto) 0.7, Eos # (Auto) 0.1, Baso # (Auto) 0.0 10/14/18 08:15: Sodium 139, Potassium 3.0 L, Chloride 104, Carbon Dioxide 26, Anion Gap 12.0, BUN 15, Creatinine 1.10 H, Estimated Creat Clear 104, Estimated GFR 52 L, Est GFR ( Amer) 63, Glucose 263 H D, Calcium 8.1 L D 10/14/18 08:15: Hemoglobin A1c 10.1 H 10/14/18 11:40: POC Glucose 256 H I & O for Last 24 hours: Intake & Output 10/12/18 10/13/18 10/14/18 10/15/18 11:59 11:59 11:59 11:59 Intake Total 1809 / 1809 Output Total 120 / 120 Balance 1689 / 1689 Weight 240 lb 242 lb 4.996 oz - *Routine HEENT Exam Head: Present: normocephalic Eye: Present: EOMI, PERRL ENT: Present: mucous membranes moist - *Routine Neck Exam Present: supple. Absent: lymphadenopathy - *Routine Respiratory Exam Present: CTA bilaterally - *Routine Cardiovascular Exam Present: RRR - *Routine Abdominal Exam Present: soft, normoactive bowel sounds, tenderness Comments: She has minimal tenderness in the epigastrium - *Routine Extremities Exam Absent: cyanosis, clubbing, edema - *Routine Skin Exam Present: warm. Absent: rash - *Routine Neurological Exam Present: alert, oriented X3 - Detailed Eye Exam Eyelids: Left normal inspection Results - Labs 10/14/18 08:15 10/14/18 08:15 Laboratory Results - last 24 hr 10/13/18 16:02: POC Glucose 311 H* 10/13/18 21:05: POC Glucose 241 H 10/14/18 06:14: POC Glucose 211 H 10/14/18 08:15: WBC 11.3 H, RBC 4.58, Hgb 13.5, Hct 40.5, MCV 88.5, MCH 29.5, MCHC 33.3, RDW 13.8, Plt Count 209, MPV 8.4, Neut % (Auto) 80.4 H, Lymph % (Auto) 12.4, [place] % (Auto) 6.5, Eos % (Auto) 0.5, Baso % (Auto) 0.3, Neut # (Auto) 9.1 H, Lymph # (Auto) 1.4, [place] # (Auto) 0.7, Eos # (Auto) 0.1, Baso # (Auto) 0.0 10/14/18 08:15: Sodium 139, Potassium 3.0 L, Chloride 104, Carbon Dioxide 26, Anion Gap 12.0, BUN 15, Creatinine 1.10 H, Estimated Creat Clear 104, Estimated GFR 52 L, Est GFR ( Amer) 63, Glucose 263 H D, Calcium 8.1 L D 10/14/18 08:15: Hemoglobin A1c 10.1 H 10/14/18 11:40: POC Glucose 256 H Assessment and Plan (1) Colitis Current visit: Yes Status: Acute Category: Medical Code(s): K52.9 - Noninfective gastroenteritis and colitis, unspecified (2) Fibromyalgia Current visit: No Status: Acute Category: Medical Code(s): M79.7 - Fibromyalgia (3) DJD (degenerative joint disease) Current visit: No Status: Chronic Qualifiers: Osteoarthritis location: multiple joints Osteoarthritis type: other secondary Qualified Code(s): 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 Category: Medical Code(s): M19.90 - Unspecified osteoarthritis, unspecified site (4) Diabetes Current visit: No Status: Chronic Qualifiers: Diabetes mellitus type: type 2 Diabetes mellitus intermodal dispatcher insulin use: with intermodal dispatcher use Diabetes mellitus complication status: with unspecified complications Qualified Code(s): E11.8 - Type 2 diabetes mellitus with unspecified complications; Z79.4 - buttermaker continuous churn (current) use of insulin Category: Medical Code(s): E11.9 - Type 2 diabetes mellitus without complications (5) Hypothyroidism Current visit: No Status: Chronic Qualifiers: Hypothyroidism type: acquired Qualified Code(s): E03.9 - Hypothyroidism, unspecified Category: Medical Code(s): E03.9 - Hypothyroidism, unspecified (6) Renal insufficiency Current visit: Yes Status: Acute Category: Medical Code(s): N28.9 - Disorder of kidney and ureter, unspecified (7) Obesity (BMI 30-39.9) Current visit: Yes Status: Acute Category: Medical Code(s): E66.9 - Obesity, unspecified (8) GERD (gastroesophageal reflux disease) Current visit: Yes Status: Acute Category: Medical Code(s): K21.9 - Gastro-esophageal reflux disease without esophagitis (9) Hyperlipidemia Current visit: Yes Status: Acute Qualifiers: Hyperlipidemia type: unspecified Qualified Code(s): E78.5 - Hyperlipidemia, unspecified Category: Medical Code(s): E78.5 - Hyperlipidemia, unspecified (10) HTN (hypertension) Current visit: Yes Status: Acute Qualifiers: Hypertension type: essential hypertension Qualified Code(s): I10 - Essential (primary) hypertension Category: Medical Code(s): I10 - Essential (primary) hypertension - Assessment and plan all Dx Assessment and Plan for all problems:: I feel that given the nature of the patient's symptoms with relatively sudden onset mostly characterized initially by diarrhea that upper endoscopy would be rather low yield particularly given the fact that she had a normal upper en doscopy a year ago. It is reassuring that she had a normal colonoscopy a few weeks ago. She may have an enterocolitis. Recommend stool testing if she does continue with any additional diarrhea. Would manage expectantly at this time. I will start her on a diet. If she has ongoing symptoms may consider upper endoscopy in the next day or 2.
--- NOTE | 2018-10-14 14:22 | Progress Note ---
Internal Medicine - PN: Subj *Date: 10/14/18 *Time: 14:20 Interval history: upper abd pain and has elevated glu - will ask for surg eval and gb u/s Exam Vital signs and Labs for Last 24 Hours: Temp Pulse Resp BP Pulse Ox 98.2 F 62 18 134/75 97 10/14/18 08:00 10/14/18 08:00 10/14/18 08:00 10/14/18 08:00 10/14/18 08:00 Laboratory Results - last 24 hr 10/13/18 16:02: POC Glucose 311 H* 10/13/18 21:05: POC Glucose 241 H 10/14/18 06:14: POC Glucose 211 H 10/14/18 08:15: WBC 11.3 H, RBC 4.58, Hgb 13.5, Hct 40.5, MCV 88.5, MCH 29.5, MCHC 33.3, RDW 13.8, Plt Count 209, MPV 8.4, Neut % (Auto) 80.4 H, Lymph % (Auto) 12.4, [place] % (Auto) 6.5, Eos % (Auto) 0.5, Baso % (Auto) 0.3, Neut # (Auto) 9.1 H, Lymph # (Auto) 1.4, [place] # (Auto) 0.7, Eos # (Auto) 0.1, Baso # (Auto) 0.0 10/14/18 08:15: Sodium 139, Potassium 3.0 L, Chloride 104, Carbon Dioxide 26, Anion Gap 12.0, BUN 15, Creatinine 1.10 H, Estimated Creat Clear 104, Estimated GFR 52 L, Est GFR ( Amer) 63, Glucose 263 H D, Calcium 8.1 L D 10/14/18 08:15: Hemoglobin A1c 10.1 H 10/14/18 11:40: POC Glucose 256 H I & O for Last 24 hours: Intake & Output 10/12/18 10/13/18 10/14/18 10/15/18 11:59 11:59 11:59 11:59 Intake Total 1809 / 1809 300 / 300 Output Total 120 / 120 Balance 1689 / 1689 300 / 300 Weight 240 lb 242 lb 4.996 oz - Constitutional no acute distress - *Routine HEENT Exam Head: Present: normocephalic Eye: Present: EOMI, PERRL. Absent: conjunctival icterus ENT: Present: mucous membranes dry - *Routine Neck Exam Absent: JVD - *Routine Respiratory Exam Present: CTA bilaterally - *Routine Cardiovascular Exam Present: RRR - *Routine Abdominal Exam Present: soft, tenderness - *Routine Extremities Exam Absent: calf tenderness - Routine Back/Spine/Pelvis Exam Back/Spine: Absent: CVA tenderness - *Routine Skin Exam Present: intact - *Routine Neurological Exam Present: alert, CN II-XII intact - Routine Psychiatric Exam Present: normal affect Assessment and Plan (1) Colitis Current visit: Yes Status: Acute Category: Medical Code(s): K52.9 - No ninfective gastroenteritis and colitis, unspecified (2) Fibromyalgia Current visit: No Status: Acute Category: Medical Code(s): M79.7 - Fibromyalgia (3) DJD (degenerative joint disease) Current visit: No Status: Chronic Qualifiers: Osteoarthritis location: multiple joints Osteoarthritis type: other secondary Qualified Code(s): 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 Category: Medical Code(s): M19.90 - Unspecified osteoarthritis, unspecified site (4) Diabetes Current visit: No Status: Chronic Qualifiers: Diabetes mellitus type: type 2 Diabetes mellitus [facility] insulin use: with [facility] use Diabetes mellitus complication status: with unspecified complications Qualified Code(s): E11.8 - Type 2 diabetes mellitus with unspecified complications; Z79.4 - middle or intermediate school principal (current) use of insulin Category: Medical Code(s): E11.9 - Type 2 diabetes mellitus without complications (5) Hypothyroidism Current visit: No Status: Chronic Qualifiers: Hypothyroidism type: acquired Qualified Code(s): E03.9 - Hypothyroidism, unspecified Category: Medical Code(s): E03.9 - Hypothyroidism, unspecified (6) Renal insufficiency Current visit: Yes Status: Acute Category: Medical Code(s): N28.9 - Disorder of kidney and ureter, unspecified (7) Obesity (BMI 30-39.9) Current visit: Yes Status: Acute Category: Medical Code(s): E66.9 - Obesity, unspecified (8) GERD (gastroesophageal reflux disease) Current visit: Yes Status: Acute Category: Medical Code(s): K21.9 - Gastro-esophageal reflux disease without esophagitis (9) Hyperlipidemia Current visit: Yes Status: Acute Qualifiers: Hyperlipidemia type: unspecified Qualified Code(s): E78.5 - Hyperlipidemia, unspecified Category: Medical Code(s): E78.5 - Hyperlipidemia, unspecified (10) HTN (hypertension) Current visit: Yes Status: Acute Qualifiers: Hypertension type: essential hypertension Qualified Code(s): I10 - Essential (primary) hypertension Category: Medical Code(s): I10 - Essential (primary) hypertension
--- NOTE | 2018-10-15 07:51 | Progress Note ---
Subjective Narrative: Patient feels much better. Tolerated diet yesterday. Upper abdominal pain has resolved. Exam Vital signs and Labs for Last 24 Hours: Temp Pulse Resp BP Pulse Ox 98.7 F 68 17 124/69 96 10/15/18 04:00 10/15/18 04:00 10/15/18 04:00 10/15/18 04:00 10/15/18 04:00 Laboratory Results - last 24 hr 10/14/18 08:15: WBC 11.3 H, RBC 4.58, Hgb 13.5, Hct 40.5, MCV 88.5, MCH 29.5, MCHC 33.3, RDW 13.8, Plt Count 209, MPV 8.4, Neut % (Auto) 80.4 H, Lymph % (Auto) 12.4, [place] % (Auto) 6.5, Eos % (Auto) 0.5, Baso % (Auto) 0.3, Neut # (Auto) 9.1 H, Lymph # (Auto) 1.4, [place] # (Auto) 0.7, Eos # (Auto) 0.1, Baso # (Auto) 0.0 10/14/18 08:15: Sodium 139, Potassium 3.0 L, Chloride 104, Carbon Dioxide 26, Anion Gap 12.0, BUN 15, Creatinine 1.10 H, Estimated Creat Clear 104, Estimated GFR 52 L, Est GFR ( Amer) 63, Glucose 263 H D, Calcium 8.1 L D 10/14/18 08:15: Hemoglobin A1c 10.1 H 10/14/18 11:40: POC Glucose 256 H 10/14/18 17:06: POC Glucose 245 H 10/14/18 21:06: POC Glucose 206 H 10/15/18 05:34: POC Glucose 167 H I & O for Last 24 hours: Intake & Output 10/12/18 10/13/18 10/14/18 10/15/18 11:59 11:59 11:59 11:59 Intake Total 1809 / 1809 1563 / 1563 Output Total 120 / 120 600 / 600 Balance 1689 / 1689 963 / 963 Weight 240 lb 242 lb 4.996 oz 243 lb 3 oz - *Routine Abdominal Exam Absent: tenderness Progress Note: A&P (1) Colitis Status: Acute Current Visit: Yes (2) Fibromyalgia Status: Acute Current Visit: No (3) DJD (degenerative joint disease) Status: Chronic Current Visit: No (4) Diabetes Status: Chronic Current Visit: No (5) Hypothyroidism Status: Chronic Current Visit: No (6) Renal insufficiency Status: Acute Current Visit: Yes (7) Obesity (BMI 30-39.9) Status: Acute Current Visit: Yes (8) GERD (gastroesophageal reflux disease) Status: Acute Current Visit: Yes (9) Hyperlipidemia Status: Acute Current Visit: Yes (10) HTN (hypertension) Status: Acute Current Visit: Yes Assessment and Plan for All Diagnoses:: Diabetic diet
--- NOTE | 2018-10-15 08:46 | Discharge Summary ---
General - General Admission date:: 10/13/18 Discharge date: 10/15/18 HPI HPI: 53-year-old patient sitting up in bed this morning denies any further abdominal pain tolerated diet yesterday states she is ready to go home this wf presented to the [facility] ed with c/coke up at 3 AM with sweatiness, epigastric pain, nausea, and diarrhea. Has not vomited. Has had diarrhea about every hour. No recent hospitalizations, surgeries, antibiotics, or travel. pt was given ivf and still was having sig sx and glu uncontrolled - pt was admitted for ivf and eval (Per Dr. Wade) Hospital Course Hospital Course: MPRESSION: Negative gallbladder/right upper quadrant ultrasound Dictated By: Mark Albert MD 53-year-old female patient presented to the ED on 10/13 for nausea multiple bouts of diarrhea no vomiting and abdominal pain glucose on admission was 464. Her POC this AM is 167. During her admission here she has had a negative gallbladder ultrasound and a negative abdominal CT. General Surgery has seen and has since evaluated and signed off. She will be discharged home today w/ Reglan 10mg BID Objective Vital signs: Temp Pulse Resp BP Pulse Ox 97.5 F L 80 18 130/75 97 10/15/18 08:00 10/15/18 08:00 10/15/18 08:00 10/15/18 08:00 10/15/18 08:00 no acute distress - *Routine HEENT Exam Head: Present: normocephalic Eye: Present: EOMI ENT: Present: mucous membranes moist - *Routine Neck Exam Present: supple, full ROM. Absent: JVD - *Routine Respiratory Exam Present: CTA bilaterally - *Routine Cardiovascular Exam Present: RRR - *Routine Abdominal Exam Present: soft, normoactive bowel sounds. Absent: tenderness - *Routine Extremities Exam Present: full ROM, pulses intact - Routine Back/Spine/Pelvis Exam Back/Spine: Present: full ROM - *Routine Skin Exam Present: intact - *Routine Neurological Exam Present: alert, oriented X3, CN II-XII intact - Routine Psychiatric Exam Present: normal affect Results Completed studies during hospitalization [Text1]: 10/13/[address] MPRESSION: 1. Mild thickening of the transverse and descending colon which could be due to nondistention or colitis. 2. Otherwise negative CT abdomen pelvis Dictated By: Mark Albert MD 10/14/2018 GB U/S MPRESSION: Negative gallbladder/right upper quadrant ultrasound Dictated By: Mark Albert MD Labs on day of discharge: Labs from last 24 hours 10/15/18 10/14/18 10/14/18 05:34 21:06 17:06 Sodium Potassium Chloride Carbon Dioxide Anion Gap BUN Creatinine Estimated Creat Clear Estimated GFR Est GFR ( Amer) Glucose POC Glucose 167 H 206 H 245 H Hemoglobin A1c Calcium 10/14/18 10/14/18 10/14/18 11:40 08:15 08:15 Sodium 139 Potassium 3.0 L Chloride 104 Carbon Dioxide 26 Anion Gap 12.0 BUN 15 Creatinine 1.10 H Estimated Creat Clear 104 Estimated GFR 52 L Est GFR ( Amer) 63 Glucose 263 H D POC Glucose 256 H Hemoglobin A1c 10.1 H Calcium 8.1 L D - Additional Comments Rounds with Dr. Wade orders per Dr. Wade. DS: Diagnosis - Discharge Diagnosis (1) Colitis Status: Acute (2) Fibromyalgia Status: Acute (3) DJD (degenerative joint disease) Status: Chronic (4) Diabetes Status: Chronic (5) Hypothyroidism Status: Chronic (6) Renal insufficiency Status: Acute (7) Obesity (BMI 30-39.9) Status: Acute (8) GERD (gastroesophageal reflux disease) Status: Acute (9) Hyperlipidemia Status: Acute (10) HTN (hypertension) Status: Acute Discharge Plan - Patient Discharge Instructions ACTIVITY: Continue current activity DIET: diabetic diet Patient Instructions: Nausea and Vomiting-Adult - Follow up Plan Disposition: Home, Self-Senior Living Medications: Home Medications Medication Instructions Recorded Confirmed Type levonorgestrel 20 mcg/24 hours (5 1 insert INTRAUTERI ONCE 01/06/18 10/13/18 History yrs) 52 mg intrauterine device multivit with 1 tab PO DAILY 01/13/18 10/13/18 History brykftub-motc-GM-lutein 8 mg iron-400 mcg-300 mcg tablet linaclotide 72 mcg capsule 72 mcg PO DAILY 30 Days #30 cap 05/14/18 10/13/18 History atorvastatin 40 mg tablet 40 mg PO DAILY #90 tab 09/03/18 10/13/18 Rx Aspirin [Low Dose Aspirin EC] 81 mg PO DAILY 09/07/18 10/13/18 History ranitidine 150 mg tablet 150 mg PO BID 90 Days #180 tab 09/25/18 10/13/18 Rx gabapentin 800 mg tablet 800 mg PO TID #90 tab 09/28/18 10/13/18 Rx liraglutide 0.6 mg/0.1 mL (18 mg/3 1.8 mg SQ DAILY 30 Days #9 09/28/18 10/13/18 History mL) subcutaneous pen injector tramadol 50 mg tablet 50 mg PO BID #60 tab 09/28/18 10/13/18 Rx duloxetine 60 mg capsule,delayed 60 mg PO DAILY #30 cap 09/30/18 10/13/18 Rx release fluoxetine 40 mg capsule 40 mg PO DAILY #30 cap 09/30/18 10/13/18 Rx Fluticasone Propionate 1 spray INTRANASAL DAILY 10/13/18 10/13/18 History Insulin Detemir [Levemir 40 units SQ DAILY 10/13/18 10/13/18 History 100units/mL 3mL flexpen] Levothyroxine Sodium [Synthroid 100 mcg PO DAILY 10/13/18 10/13/18 History 100mcg (0.1mg) tablet] Lidocaine [Lidocaine 5% ointment 1 applic TOPICAL DAILY 10/13/18 10/13/18 History 35gm tube] Lisinopril/Hydrochlorothiazide 1 tab PO DAILY 10/13/18 10/13/18 History [Lisinopril-Hctz 20-12.5 mg Tab] Trazodone HCl 1 - 2 tab PO HSP PRN 10/13/18 10/13/18 History Valacyclovir HCl [Valacyclovir] 1,000 mg PO DAILY 10/13/18 10/13/18 History Metoclopramide HCl [Reglan 10mg 10 mg PO BID 30 Days #60 tab 10/15/18 Rx Tab] Prescriptions/Medication Reconciliation: New Metoclopramide HCl [Reglan 10mg Tab] 10 mg PO BID 30 Days #60 tab Continued liraglutide 0.6 mg/0.1 mL (18 mg/3 mL) subcutaneous pen injector 1.8 mg SQ DAILY 30 Days #9 tramadol 50 mg tablet 50 mg PO BID #60 tab gabapentin 800 mg tablet 800 mg PO TID #90 tab duloxetine 60 mg capsule,delayed release 60 mg PO DAILY #30 cap fluoxetine 40 mg capsule 40 mg PO DAILY #30 cap levonorgestrel 20 mcg/24 hours (5 yrs) 52 mg intrauterine device 1 insert INTRAUTERI ONCE multivit with lbconlen-vxdz-DA-lutein 8 mg iron-400 mcg-300 mcg tablet 1 tab PO DAILY linaclotide 72 mcg capsule 72 mcg PO DAILY 30 Days #30 cap atorvastatin 40 mg tablet 40 mg PO DAILY #90 tab ranitidine 150 mg tablet 150 mg PO BID 90 Days #180 tab Aspirin [Low Dose Aspirin EC] 81 mg PO DAILY Lisinopril/Hydrochlorothiazide [Lisinopril-Hctz 20-12.5 mg Tab] 1 tab PO DAILY Levothyroxine Sodium [Synthroid 100mcg (0.1mg) tablet] 100 mcg PO DAILY Lidocaine [Lidocaine 5% ointment 35gm tube] 1 applic TOPICAL DAILY Trazodone HCl 1 - 2 tab PO HSP PRN PRN Reason: Sleep Fluticasone Propionate 1 spray INTRANASAL DAILY Valacyclovir HCl [Valacyclovir] 1,000 mg PO DAILY Insulin Detemir [Levemir 100units/mL 3mL flexpen] 40 units SQ DAILY
== END 2018-10-15 12:50 | disposition home or self-care (01) ==
LOC: ER 10:00 → 2ND 10:00
PROVIDERS: ADMIT Emergency Medicine; ATTEND Emergency Medicine
DX: R11.2 Nausea with vomiting, unspecified; Z68.39 Body mass index [BMI] 39.0-39.9, adult; I10 Essential (primary) hypertension; K52.9 Noninfective gastroenteritis and colitis, unspecified; K21.9 Gastro-esophageal reflux disease without esophagitis; N28.9 Disorder of kidney and ureter, unspecified; R10.10 Upper abdominal pain, unspecified; Z79.82 Long term (current) use of aspirin; E03.9 Hypothyroidism, unspecified; E78.5 Hyperlipidemia, unspecified; M15.3 Secondary multiple arthritis; Z79.4 Long term (current) use of insulin; Z79.899 Other long term (current) drug therapy; E66.9 Obesity, unspecified; Z87.19 Personal history of other diseases of the digestive system; M79.7 Fibromyalgia; Z88.8 Allergy status to other drugs, medicaments and biological substances; E11.9 Type 2 diabetes mellitus without complications
CPT/HCPCS: 36415; 74177; 76705; 80048; 80053; 81001; 82009; 82803; 82962; 83036; 83690; 84484; 85007; 85025; 93005; 96365; 96372; 96375; 99284; G0378; J2405

== ENCOUNTER → 2019-01-13 09:07 | Outpatient (CLI) | payer MEDICARE, OTHER, MEDICAID, SELFPAY ==
[2019-01-13 15:18] LABS: Anion Gap 14.7 mEq/L (5-15); Blood Urea Nitrogen 22 mg/dL (7-18); Calcium 9.6 mg/dL (8.5-10.1); Carbon Dioxide 29 mmol/L (21.0-32.0); Chloride 97 mmol/L (98-107); Creatinine,Serum 1.48 mg/dL (0.55-1.02); Estimated Glomerular Filt Rate 37 ml/min (>60); GFR (African American) 45 ML/MIN (>60); Glucose 298 mg/dL (74-106); Potassium 3.7 mmoL/L (3.5-5.1); Sodium 137 mmol/L (136-145)
[2019-01-14 10:11] LABS: Creatinine, Urine 74.1 mg/dL (Not Estab.); Microalbumin, Urine <3.0 ug/mL (Not Estab.)
== END ==
PROVIDERS: PCP Emergency Medicine; Visit Provider Internal Medicine Endocrinology, Diabetes & Metabolism
DX: E11.65 Type 2 diabetes mellitus with hyperglycemia (principal); Z79.4 Long term (current) use of insulin
CPT/HCPCS: 36415; 80048; 82043; 82570

== ENCOUNTER → 2019-02-09 10:12 | Outpatient (CLI) | payer MEDICARE, OTHER, MEDICAID, SELFPAY ==
--- NOTE | 2019-02-09 10:14 | MM_ITS ---
PROCEDURE: MM DIG SCREENING MAMM BI W/CAD CLINICAL INDICATION: Routine screening mammogram There is a history of breast cancer in patient's sister diagnosed at age 62. There has been previous bilateral breast reduction surgery COMPARISON: [facility]BI MM Dig screening mamm BI w/CAD from 01/22/2018 DXLT MM Dig mamm DX unilat LT CAD from 02/17/2018 DIG MAMM-DX UNI-LT from 10/08/2018 TECHNIQUE: Standard CC and MLO images were obtained. R2 CAD reviewed. FINDINGS: Diffuse fibroglandular densities are seen throughout both breast. There is a biopsy clip left breast and a surgical clip seen left axilla. There is a mole marker left breast. A few scattered benign-appearing microcalcifications in each breast. Again noted is a cluster of microcalcifications deep within the left breast upper outer quadrant and these appear to be stable. There is no new or suspicious lesion in either breast and no suspicious microcalcifications. IMPRESSION: Moderate diffuse breast density with no suspicious lesions seen BI-RAD Category: 2 Benign Finding(s) FOLLOW-UP: 1YR 1 Year Follow-up (A letter has been sent to the patient regarding results of the study.) Dictated by: Dr. Delroy Wright MD 02/14/2019 15:[address] Delroy Wright MD in [place] 02/14/2019 15:46
== END ==
PROVIDERS: PCP Emergency Medicine; Visit Provider Nurse Practitioner Obstetrics & Gynecology
DX: Z12.31 Encounter for screening mammogram for malignant neoplasm of breast (principal)
CPT/HCPCS: 77067

== ENCOUNTER → 2019-03-09 11:05 | Outpatient (CLI) | payer MEDICARE, OTHER, MEDICAID, SELFPAY ==
[2019-03-09 14:19] LABS: Anion Gap 13.9 mEq/L (5-15); Blood Urea Nitrogen 15 mg/dL (7-18); Calcium 9.2 mg/dL (8.5-10.1); Carbon Dioxide 29 mmol/L (21.0-32.0); Chloride 99 mmol/L (98-107); Creatinine,Serum 1.12 mg/dL (0.55-1.02); Estimated Glomerular Filt Rate 51 ml/min (>60); GFR (African American) 62 ML/MIN (>60); Glucose 151 mg/dL (74-106); Potassium 3.9 mmoL/L (3.5-5.1); Sodium 138 mmol/L (136-145)
== END ==
PROVIDERS: PCP Emergency Medicine; Visit Provider Internal Medicine Endocrinology, Diabetes & Metabolism
DX: E11.65 Type 2 diabetes mellitus with hyperglycemia (principal); Z79.4 Long term (current) use of insulin
CPT/HCPCS: 36415; 80048; 84681

== ENCOUNTER → 2019-04-15 13:51 | Outpatient (CLI) | payer MEDICARE, OTHER, MEDICAID, SELFPAY | PROVIDERS: PCP Emergency Medicine; Visit Provider Nurse Practitioner Obstetrics & Gynecology | DX: R92.8 Other abnormal and inconclusive findings on diagnostic imaging of breast (principal) ==

== ENCOUNTER → 2019-06-16 11:57 | Outpatient (CLI) | payer MEDICARE, OTHER, MEDICAID, SELFPAY ==
[2019-06-16 12:46] LABS: Thyroid Stimulating Hormone 1.01 uIU/ml (0.358-3.740)
[2019-06-17 15:41] LABS: Triiodothyronine (T3) Free 3.1 pg/mL (2.0-4.4); Vitamin B12 417 pg/mL (232-1245)
== END ==
PROVIDERS: Visit Provider Internal Medicine Endocrinology, Diabetes & Metabolism
DX: E11.65 Type 2 diabetes mellitus with hyperglycemia (principal); E03.8 Other specified hypothyroidism; E53.8 Deficiency of other specified B group vitamins
CPT/HCPCS: 36415; 82607; 84436; 84439; 84443; 84481

== ENCOUNTER → 2019-07-26 11:22 | Outpatient (POV) | payer MEDICARE, OTHER, MEDICAID, SELFPAY | PROVIDERS: PCP Nurse Practitioner Family; Visit Provider Nurse Practitioner Family | DX: Z00.00 Encounter for general adult medical examination without abnormal findings (principal) ==

== ENCOUNTER → 2019-12-01 14:09 | Outpatient (CLI) | payer MEDICARE, OTHER, MEDICAID, SELFPAY ==
[2019-12-01 14:37] LABS: Basophils # 0.1 K/mm3 (0-0.2); Basophils % 0.9 % (0.1-2.0); Eosinophils # 0.6 K/mm3 (0.0-0.4); Eosinophils % 8.1 % (0.1-12.0); Hematocrit 41.2 % (37.0-47.0); Hemoglobin 14.5 g/dL (12.2-16.2); Lymphocytes # 1.2 K/mm3 (0.7-4.5); Lymphocytes % 17.4 % (10-50); Mean Corpuscular HGB Conc 35.3 g/dL (31.8-35.4); Mean Corpuscular Hemoglobin 30.8 pg (27.0-31.2); Mean Corpuscular Volume 87.2 fl (81-99); Mean Platelet Volume 9.3 fl (7.4-10.4); Monocytes # 0.4 K/mm3 (0.1-1.0); Monocytes % 6.2 % (1.7-9.3); Neutrophils # 4.8 K/mm3 (1.8-7.8); Neutrophils % 67.5 % (37.0-80.0); Platelet Count 251 K/mm3 (142-424); Red Blood Count 4.72 M/mm3 (4.20-5.40); Red Cell Distribution Width 13.1 % (11.5-17.5); White Blood Count 7.1 K/mm3 (4.8-10.8)
[2019-12-01 14:39] LABS: Chloride 99 mmol/L (98-107); Potassium 3.9 mmoL/L (3.5-5.1); Sodium 136 mmol/L (136-145)
[2019-12-01 14:42] LABS: Alanine Aminotransferase 17 U/L (12-78); Albumin Level 4.4 g/dl (3.5-5.0); Albumin/Globulin Ratio 1.6 (1.1-1.8); Alkaline Phosphatase 121 U/L (38-126); Anion Gap 11.9 mEq/L (5-15); Aspartate Amino Transferase 25 U/L (14-36); Bilirubin,Total 0.5 mg/dl (0.2-1.3); Blood Urea Nitrogen 18 mg/dl (7-17); Carbon Dioxide 29 mmol/L (22.0-30.0); Cholesterol 134 mg/dl (140-200); Estimated Glomerular Filt Rate 52 ml/min (>60); GFR (African American) 63 ML/MIN (>60); Globulin 2.7 g/dL (1.3-3.2); HDL Cholesterol 45 mg/dl (40-60); Total Protein,Serum 7.1 g/dl (6.3-8.2); Triglycerides 123 mg/dl (30-150); VLDL Cholesterol 25 mg/dL (0-40)
[2019-12-01 14:48] LABS: Calcium 9.9 mg/dl (8.4-10.2)
[2019-12-01 14:54] LABS: Direct LDL Cholesterol 74.12 mg/dL (100-129)
[2019-12-01 14:58] LABS: Free T4 (Free Thyroxine) 1.39 ng/dl (0.78-2.19)
[2019-12-01 15:16] LABS: Thyroid Stimulating Hormone 1.07 uIU/mL (0.465-4.68)
[2019-12-01 15:23] LABS: Hemoglobin A1C 6.5 % (4.0-6.0)
[2019-12-01 15:32] LABS: Glucose 76 mg/dl (74-100)
== END ==
PROVIDERS: Visit Provider Emergency Medicine
DX: E11.40 Type 2 diabetes mellitus with diabetic neuropathy, unspecified (principal); Z79.4 Long term (current) use of insulin
CPT/HCPCS: 80053; 80061; 83036; 84439; 84443; 85025

== ENCOUNTER → 2020-02-09 10:46 | Outpatient (CLI) | payer MEDICARE, OTHER, MEDICAID, SELFPAY | PROVIDERS: PCP Emergency Medicine; Visit Provider Nurse Practitioner Obstetrics & Gynecology | DX: Z12.31 Encounter for screening mammogram for malignant neoplasm of breast (principal) ==

== ENCOUNTER → 2020-02-17 10:38 | Outpatient (CLI) | payer MEDICARE, OTHER, MEDICAID, SELFPAY ==
--- NOTE | 2020-02-17 10:54 | MM_ITS ---
PROCEDURE: MM DIG SCREENING MAMM BI W/CAD Digital Breast Tomosynthesis Included CLINICAL INDICATION: SCREENING There is a history of breast cancer patient's sister diagnosed after menopause. There has been previous bilateral breast reduction surgery. COMPARISON: MG SCBI MM Dig screening mamm BI w/CAD from 01/22/2018 MG DXLT MM Dig mamm DX unilat LT CAD from 02/17/2018 MG DIG MAMM-DX UNI-LT from 10/08/2018 MG MM DIG SCREENING MAMM BI W/CAD from 02/09/2019 TECHNIQUE: Standard CC and MLO images and 3D Tomosynthesis was obtained. R2 CAD reviewed. FINDINGS: Moderate scattered fibroglandular densities are seen throughout both breasts. There is a biopsy clip left breast. There is a surgical clip in the left axilla. There are few benign-appearing microcalcifications deep within the left breast near the axillary tail and these are stable. There is no suspicious lesion and no suspicious microcalcifications. IMPRESSION: Moderate diffuse breast density with no suspicious lesions seen BI-RAD Category: 2 Benign Finding(s) FOLLOW-UP: 1YR 1 Year Follow-up (A letter has been sent to the patient regarding results of the study.) Dictated by: Dr. Delroy Wright MD 02/18/2020 13:56 Dr. Delroy Wright MD in [place] 02/18/2020 13:56
== END ==
PROVIDERS: PCP Emergency Medicine; Visit Provider Nurse Practitioner Obstetrics & Gynecology
DX: Z12.31 Encounter for screening mammogram for malignant neoplasm of breast (principal)
CPT/HCPCS: 77063; 77067

== ENCOUNTER → 2020-03-03 16:44 | Outpatient (CLI) | payer MEDICARE, OTHER, MEDICAID, SELFPAY ==
[2020-03-05 11:26] LABS: LH 72.7 mIU/mL (.); Progesterone 0.1 ng/mL (.)
[2020-03-08 13:18] LABS: Estrogen 77 pg/mL (.)
== END ==
PROVIDERS: Visit Provider Emergency Medicine
DX: R53.83 Other fatigue (principal)
CPT/HCPCS: 82672; 83001; 83002; 84144

== ENCOUNTER → 2020-05-16 11:05 | Outpatient (CLI) | payer MEDICARE, OTHER, MEDICAID, SELFPAY | PROVIDERS: PCP Emergency Medicine; Visit Provider Specialist | DX: G47.33 Obstructive sleep apnea (adult) (pediatric) (principal) | CPT/HCPCS: 36415 ==

== ENCOUNTER → 2020-07-28 15:28 | Outpatient (CLI) | payer MEDICARE, OTHER, MEDICAID, SELFPAY ==
[2020-07-28 16:50] LABS: Basophils % 0.4 % (0.1-2.0); Eosinophils # 0.1 K/mm3 (0.0-0.4); Eosinophils % 1.3 % (0.1-12.0); Hematocrit 43.6 % (37.0-47.0); Hemoglobin 14.5 g/dL (12.2-16.2); Lymphocytes # 1.1 K/mm3 (0.7-4.5); Lymphocytes % 11.8 % (10-50); Mean Corpuscular HGB Conc 33.3 g/dL (31.8-35.4); Mean Corpuscular Hemoglobin 29.5 pg (27.0-31.2); Mean Corpuscular Volume 88.8 fl (81-99); Mean Platelet Volume 9.9 fl (7.4-10.4); Monocytes # 0.5 K/mm3 (0.1-1.0); Monocytes % 5.5 % (1.7-9.3); Neutrophils # 7.8 K/mm3 (1.8-7.8); Neutrophils % 80.9 % (37.0-80.0); Platelet Count 338 K/mm3 (142-424); Red Blood Count 4.91 M/mm3 (4.20-5.40); Red Cell Distribution Width 13.3 % (11.5-17.5); White Blood Count 9.7 K/mm3 (4.8-10.8)
[2020-07-28 16:55] LABS: Alanine Aminotransferase 28 U/L (12-78); Albumin Level 4.6 g/dl (3.5-5.0); Albumin/Globulin Ratio 1.4 (1.1-1.8); Alkaline Phosphatase 137 U/L (38-126); Anion Gap 14.8 mEq/L (5-15); Aspartate Amino Transferase 35 U/L (14-36); Bilirubin,Total 0.4 mg/dl (0.2-1.3); Blood Urea Nitrogen 16 mg/dl (7-17); Calcium 10.1 mg/dl (8.4-10.2); Carbon Dioxide 27 mmol/L (22.0-30.0); Chloride 101 mmol/L (98-107); Chol/HDL Ratio 3.4 (1-3.5); Cholesterol 151 mg/dl (140-200); Estimated Glomerular Filt Rate 58 ml/min (>60); GFR (African American) 70 ML/MIN (>60); Globulin 3.3 g/dL (1.3-3.2); Glucose 124 mg/dl (74-100); HDL Cholesterol 45 mg/dl (40-60); Potassium 3.8 mmoL/L (3.5-5.1); Sodium 139 mmol/L (136-145); Total Protein,Serum 7.9 g/dl (6.3-8.2); Triglycerides 109 mg/dl (30-150); VLDL Cholesterol 22 mg/dL (0-40)
[2020-07-28 17:10] LABS: Free T4 (Free Thyroxine) 1.31 ng/dl (0.78-2.19)
[2020-07-28 17:13] LABS: 25-OH Vitamin D, Total 22.4 ng/mL (30-100)
[2020-07-28 17:23] LABS: Thyroid Stimulating Hormone 1.33 uIU/mL (0.465-4.68)
[2020-07-28 18:06] LABS: Hemoglobin A1C 6.4 % (4.0-6.0)
[2020-07-28 20:07] LABS: Creatinine,Urine Random 471 mg/dL (Not Estab.)
== END ==
PROVIDERS: Visit Provider Emergency Medicine
DX: E11.9 Type 2 diabetes mellitus without complications (principal); E55.9 Vitamin D deficiency, unspecified; Z79.4 Long term (current) use of insulin
CPT/HCPCS: 80053; 80061; 82043; 82306; 82570; 83036; 84439; 84443; 85025

== ENCOUNTER → 2020-07-31 11:07 | Outpatient (POV) | payer MEDICARE, OTHER, MEDICAID, SELFPAY | PROVIDERS: Visit Provider Nurse Practitioner Family | DX: Z00.00 Encounter for general adult medical examination without abnormal findings (principal) ==

== ENCOUNTER → 2021-03-20 12:41 | Outpatient (CLI) | payer MEDICARE, MEDICAID, SELFPAY ==
--- NOTE | 2021-03-20 12:41 | MM_ITS ---
PROCEDURE: MM DIG SCREENING MAMM BI W/CAD Digital Breast Tomosynthesis Included CLINICAL INDICATION: screening xmg There is a history of breast cancer in the patient's sister. There have been previous biopsies on each breast for benign disease and there has been previous bilateral breast reduction surgery. COMPARISON: MG DIG MAMM-DX UNI-LT from 10/08/2018 MG MM DIG SCREENING MAMM BI W/CAD from 02/09/2019 MG MM DIG SCREENING MAMM BI W/CAD from 02/17/2020 TECHNIQUE: Standard CC and MLO images and 3D Tomosynthesis was obtained. R2 CAD reviewed. FINDINGS: Mild to moderate fibroglandular densities are seen throughout both breast. There is a biopsy clip left breast and there is a mole marker left breast. There is no new or suspicious lesion in either breast and no suspicious microcalcifications. There is a stable benign-appearing nodular density inner quadrant left breast. IMPRESSION: Fibrofatty parenchyma with no suspicious lesions seen BI-RAD Category: 2 Benign Finding(s) FOLLOW-UP: 1YR 1 Year Follow-up (A letter has been sent to the patient regarding results of the study.) Dictated by: Dr. Delroy Wright MD 03/27/2021 13:19 Dr. Delroy Wright MD in [place] 03/27/2021 13:19
== END ==
PROVIDERS: PCP Emergency Medicine; Visit Provider Nurse Practitioner Obstetrics & Gynecology
DX: Z12.31 Encounter for screening mammogram for malignant neoplasm of breast (principal)
CPT/HCPCS: 77063; 77067

== ENCOUNTER → 2021-04-24 12:47 | Outpatient (CLI) | payer MEDICARE, OTHER, MEDICAID, SELFPAY ==
--- NOTE | 2021-04-24 12:47 | MR_ITS ---
PROCEDURE: MR LUMBAR SPINE WO CON CLINICAL INDICATION: back pain COMPARISON: No exams were available for comparison TECHNIQUE: Standard multiplanar multiecho sequences are performed without contrast. 3-D MIP and myelographic images are also rendered and reviewed FINDINGS: There is normal alignment. The spinal cord ends at the L1-L2 level. T11-T12: There is a small left paracentral disc osteophyte complex causing mild impingement upon the anterior left aspect of the cord and causing moderate left lateral recess narrowing. This may be slightly larger compared to the previous exam. There is mild degenerative disc disease at that level. T12-L1: Mild degenerative disc disease. L1-L2: Mild circumferential bulging disc with endplate osteophytes and facet hypertrophic change with mild bilateral lateral recess narrowing. L2-L3: Mild facet and ligamentum hypertrophy. L3-L4: Degenerative disc disease with circumferential bulging disc with endplate osteophytes along with facet and ligamentum hypertrophic change with moderate to severe bilateral lateral recess narrowing and bilateral foraminal narrowing greater on the right. Canal stenosis. The degenerative disc disease is slightly worse. There are type 1 endplate changes at this level which have developed since the previous exam. These changes are greater on the right aspect of the endplates. L4-5: Facet and ligamentum hypertrophic change with concentric bulging disc along with facet and ligamentum hypertrophic change with bilateral lateral recess and foraminal narrowing. The bulging disc is slightly eccentric toward the left. L5-S1: Mild facet ligamentum hypertrophy. There is mild lumbar scoliosis convex left. IMPRESSION: 1. T11-T12: There is a small left paracentral disc osteophyte complex causing mild impingement upon the anterior left aspect of the cord and causing moderate left lateral recess narrowing. This may be slightly larger compared to the previous exam. There is mild degenerative disc disease at that level. 2. L1-L2: Mild circumferential bulging disc with endplate osteophytes and facet hypertrophic change with mild bilateral lateral recess narrowing. 3. L3-L4: Degenerative disc disease with circumferential bulging disc with endplate osteophytes along with facet and ligamentum hypertrophic change with moderate to severe bilateral lateral recess narrowing and bilateral foraminal narrowing greater on the right. Canal stenosis. The degenerative disc disease is slightly worse. There are type 1 endplate changes at this level which have developed since the previous exam. These changes are greater on the right aspect of the endplates. 4. L4-5: Facet and ligamentum hypertrophic change with concentric bulging disc along with facet and ligamentum hypertrophic change with bilateral lateral recess and foraminal narrowing. The bulging disc is slightly eccentric toward the left. Dictated by: Mark Albert MD 04/25/2021 13:34 Mark Albert MD in [place] 04/25/2021 13:34
== END ==
PROVIDERS: PCP Emergency Medicine; Visit Provider Emergency Medicine
DX: M54.9 Dorsalgia, unspecified (principal); M54.50 Low back pain, unspecified
CPT/HCPCS: 72148; 76376

== ENCOUNTER → 2021-05-15 09:32 | Outpatient (POV) | payer MEDICARE, OTHER, MEDICAID, SELFPAY ==
[2021-05-15 10:06] VITALS: BP 137/75; PULSE 117; RESP 18; O2SAT 96; BMI 37.9
--- NOTE | 2021-05-15 10:16 | HMH.PMCON ---
Assessment and Plan (1) Degenerative disc disease, lumbar Status: Acute Category: Medical Code(s): M51.36 - Other intervertebral disc degeneration, lumbar region (2) Facet arthropathy Status: Acute Category: Medical Code(s): M47.819 - Spondylosis without myelopathy or radiculopathy, site unspecified (3) Sacroiliitis Status: Acute Category: Medical Code(s): M46.1 - Sacroiliitis, not elsewhere classified - Assessment and plan all Dx Assessment and Plan for all problems:: Ordering Physician: Tien Wade MD Date of Service: 04/24/21 Procedure(s): MR lumbar spine wo con Accession Number(s): [id number] cc: Mark Albert MD; Tien Wade MD~ PROCEDURE: MR LUMBAR SPINE WO CON CLINICAL INDICATION: back pain COMPARISON: No exams were available for comparison TECHNIQUE: Standard multiplanar multiecho sequences are performed without contrast. 3-D MIP and myelographic images are also rendered and reviewed FINDINGS: There is normal alignment. The spinal cord ends at the L1-L2 level. T11-T12: There is a small left paracentral disc osteophyte complex causing mild impingement upon the anterior left aspect of the cord and causing moderate left lateral recess narrowing. This may be slightly larger compared to the previous exam. There is mild degenerative disc disease at that level. T12-L1: Mild degenerative disc disease. L1-L2: Mild circumferential bulging disc with endplate osteophytes and facet hypertrophic change with mild bilateral lateral recess narrowing. L2-L3: Mild facet and ligamentum hypertrophy. L3-L4: Degenerative disc disease with circumferential bulging disc with endplate osteophytes along with facet and ligamentum hypertrophic change with moderate to severe bilateral lateral recess narrowing and bilateral foraminal narrowing greater on the right. Canal stenosis. The degenerative disc disease is slightly worse. There are type 1 endplate changes at this level which have developed since the previous exam. These changes are greater on the right aspect of the endplates. L4-5: Facet and ligamentum hypertrophic change with concentric bulging disc along with facet and ligamentum hypertrophic change with bilateral lateral recess and foraminal narrowing. The bulging disc is slightly eccentric toward the left. L5-S1: Mild facet ligamentum hypertrophy. There is mild lumbar scoliosis convex left. IMPRESSION: 1. T11-T12: There is a small left paracentral disc osteophyte complex causing mild impingement upon the anterior left aspect of the cord and causing moderate left lateral recess narrowing. This may be slightly larger compared to the previous exam. There is mild degenerative disc disease at that level. 2. L1-L2: Mild circumferential bulging disc with endplate osteophytes and facet hypertrophic change with mild bilateral lateral recess narrowing. 3. L3-L4: Degenerative disc disease with circumferential bulging disc with endplate osteophytes along with facet and ligamentum hypertrophic change with moderate to severe bilateral lateral recess narrowing and bilateral foraminal narrowing greater on the right. Canal stenosis. The degenerative disc disease is slightly worse. There are type 1 endplate changes at this level which have developed since the previous exam. These changes are greater on the right aspect of the endplates. 4. L4-5: Facet and ligamentum hypertrophic change with concentric bulging disc along with facet and ligamentum hypertrophic change with bilateral lateral recess and foraminal narrowing. The bulging disc is slightly eccentric toward the left. Dictated by: Mark Albert MD 04/25/2021 13:34 Mark Albert MD in [place] 04/25/2021 13:34 Patient has tried and failed conservative therapy such as oral medication, physical therapy, and at home exercises for greater than 6 weeks in the past. Patient would like to hold off on seeing neurosur
== END ==
PROVIDERS: Visit Provider Clinical Nurse Specialist Family Health
DX: M51.36 Other intervertebral disc degeneration, lumbar region (principal); M47.819 Spondylosis without myelopathy or radiculopathy, site unspecified; M46.1 Sacroiliitis, not elsewhere classified
CPT/HCPCS: 99202; G0463

== ENCOUNTER → 2021-06-06 10:39 | Outpatient (CLI) | payer MEDICARE, OTHER, MEDICAID, SELFPAY ==
[2021-06-06 10:44] LABS: Microscopic, Urine URINE MICROSCOPIC (MICROSCOPIC)
[2021-06-06 11:27] LABS: Basophils # 0.1 K/mm3 (0-0.2); Basophils % 0.7 % (0.1-2.0); Eosinophils # 0.1 K/mm3 (0.0-0.4); Eosinophils % 1.1 % (0.1-12.0); Hematocrit 44.2 % (37.0-47.0); Hemoglobin 14.3 g/dL (12.2-16.2); Lymphocytes # 1.4 K/mm3 (0.7-4.5); Lymphocytes % 13.8 % (10-50); Mean Corpuscular HGB Conc 32.4 g/dL (31.8-35.4); Mean Corpuscular Hemoglobin 29.9 pg (27.0-31.2); Mean Corpuscular Volume 92.2 fl (81-99); Mean Platelet Volume 9.2 fl (7.4-10.4); Monocytes # 0.5 K/mm3 (0.1-1.0); Monocytes % 4.9 % (1.7-9.3); Neutrophils # 8.1 K/mm3 (1.8-7.8); Neutrophils % 79.6 % (37.0-80.0); Platelet Count 292 K/mm3 (142-424); Red Cell Distribution Width 13.7 % (11.5-17.5); White Blood Count 10.1 K/mm3 (4.8-10.8)
[2021-06-06 11:47] LABS: Albumin Level 4.6 g/dl (3.5-5.0); Anion Gap 15.7 mEq/L (5-15); Blood Urea Nitrogen 18 mg/dl (7-17); Calcium 9.9 mg/dl (8.4-10.2); Carbon Dioxide 29 mmol/L (22.0-30.0); Chloride 96 mmol/L (98-107); Estimated Glomerular Filt Rate 58 ml/min (>60); GFR (African American) 70 ML/MIN (>60); Glucose 220 mg/dl (74-100); Phosphorous 3.9 mg/dl (2.5-4.5); Potassium 3.7 mmoL/L (3.5-5.1); Sodium 137 mmol/L (136-145)
[2021-06-06 11:59] LABS: Intact Parathyroid Hormone 32.7 pg/mL (7.5-53.5)
[2021-06-06 12:45] LABS: 25-OH Vitamin D, Total 59.5 ng/mL (30-100)
[2021-06-06 14:22] LABS: Appearance,Urine SL CLOUDY (Clear); Bilirubin,Urine Negative (Negative); Blood, Urine Negative (Negative); Color,Urine YELLOW (Yellow); Glucose,Urine (UA) 3+ (Negative); Ketones,Urine Negative (Negative); Leukocyte Esterase,Urine Negative (Negative); Nitrate,Urine Negative (Negative); PH,Urine 5.5 (5.0-8.5); Protein,Urine Negative (Negative); Specific Gravity, Urine >= 1.030 (1.005-1.030); Urobilinogen,Urine 0.2 EU/dl (0.2)
[2021-06-06 14:57] LABS: Creatinine,Urine Random 194 mg/dL (Not Estab.)
[2021-06-06 15:23] LABS: Bacteria,Urine 2+ /lpf
== END ==
PROVIDERS: Visit Provider Internal Medicine Nephrology
DX: R80.9 Proteinuria, unspecified (principal); E55.9 Vitamin D deficiency, unspecified
CPT/HCPCS: 36415; 80069; 81001; 82043; 82306; 82570; 83970; 84155; 85025; 87086

== ENCOUNTER 2021-06-06 10:58 | Day surgery (SDC) | payer MEDICARE, OTHER, MEDICAID, SELFPAY ==
[2021-06-06 11:14] VITALS: BP 142/69; PULSE 93; RESP 20; TEMP 36.6; O2SAT 95; BMI 37.8
--- NOTE | 2021-06-06 11:34 | HMH.PMPROC ---
- Procedure Date: 06/06/21 Time: 11:35 Anesthesiologist:: Aashish James MD Complications:: None Pre-procedure Diagnosis:: Sacroiliitis Post-procedure Diagnosis:: Same Indications for Procedure:: This patient is a pleasant 56-year-old white female who we are treating for right-sided hip pain. She is tender over the right SI joint. She is positive Enid's test on the right side. She is positive Calos test on the right side. She has positive SI joint compression test on the right side. We will plan a right SI joint injection under fluoroscopy. Procedure Details:: Right SI joint injection under fluoroscopy Informed consent was obtained and the risks and benefits of the procedure was going to the patient. Patient was taken to the procedure room. Patient was placed prone on the procedure table. The right hip was prepped using ChloraPrep. The skin and subcutaneous tissues were anesthetized using lidocaine. I placed a 22-gauge spinal needle into the inferior aspect of the right SI joint. Needle placement was confirmed with dye. After this we injected 5 mL bupivacaine 0.25% and Depo-Medrol 40 mg into the right SI joint. The patient tolerated the procedure well with no complication. Plan and Disposition:: We will follow-up with her in 2 weeks. Will reevaluate her symptoms at that time. If she does get significant relief from these injections however not long-term relief that she may be a candidate for SI joint stabilization with omnia
[2021-06-06 11:36] VITALS: BP 130/87; PULSE 94; RESP 18; O2SAT 95
[2021-06-06 11:37] VITALS: PULSE 97; RESP 18; O2SAT 95
[2021-06-06 11:46] VITALS: BP 109/72; PULSE 87; RESP 20; O2SAT 98
== END 2021-06-06 11:47 | disposition home or self-care (01) ==
LOC: SC.PAINP 11:03
PROVIDERS: PCP Emergency Medicine; Visit Provider Anesthesiology
DX: M46.1 Sacroiliitis, not elsewhere classified (principal); E78.5 Hyperlipidemia, unspecified; I10 Essential (primary) hypertension; K21.9 Gastro-esophageal reflux disease without esophagitis; E11.9 Type 2 diabetes mellitus without complications; E03.9 Hypothyroidism, unspecified; F32.A Depression, unspecified; G47.33 Obstructive sleep apnea (adult) (pediatric); M19.90 Unspecified osteoarthritis, unspecified site; Z88.0 Allergy status to penicillin; R82.90 Unspecified abnormal findings in urine
CPT/HCPCS: 27096; 36415; 80069; 81001; 82043; 82306; 82570; 83970; 84155; 85025; 87086; G0260; J1040; Q9966

== ENCOUNTER → 2021-06-11 13:32 | Outpatient (POV) | payer MEDICARE, OTHER, MEDICAID, SELFPAY | PROVIDERS: Visit Provider Internal Medicine Nephrology | DX: Z00.00 Encounter for general adult medical examination without abnormal findings (principal) ==

== ENCOUNTER → 2021-06-25 08:53 | Outpatient (POV) | payer MEDICARE, OTHER, MEDICAID, SELFPAY ==
[2021-06-25 09:07] VITALS: BP 142/90; PULSE 108; RESP 18; O2SAT 97; BMI 37.5
--- NOTE | 2021-06-25 09:18 | HMH.PAINSOAP ---
[facility] Pain Management SOAP Note Subjective:: Patient is a pleasant 56-year-old female who comes in today for follow-up after a right SI injection #1 on 06/06/2021. Patient is currently treated for sacroiliitis. After the procedure, patient had 80 to 90% relief for about a week and rates her pain 2/10 then. Today, she says that some of the pain has come back and rates her pain as 4/10. Patient is very pleased after the procedure. Patient says that since the procedure, she has been having muscle spasms that lasts for a few seconds across her low back. This is slowly resolving. Patient denies any change to location type of pain. Patient denies any loss of bladder and bowel functions. She is currently taking gabapentin 400 mg 3 times a day and tramadol 50 mg twice a day that is prescribed by Dr. Wade. Her Agustín number is [phone] with an active morphine equivalent of 20. Drug screens have been reviewed and appropriate. Review of Systems General: No recent weight changes, no fever, no sleep disturbances Respiratory: No cough, no shortness of air, no recurring pulmonary infections Cardiovascular/peripheral vascular: No chest pain, no palpitations, no edema, no shortness of breath Gastrointestinal: No new onset incontinence, normal bowel movements reported Genitourinary: No new onset incontinence Musculoskeletal: Right hip pain Psychiatric: [Normal mood/affect] Neurological: [Denies weakness in extremities], [denies balance issues] Objective:: Physical exam General: Alert and oriented x3, no acute distress, pleasant and cooperative Lungs: Respirations even and unlabored, symmetrical chest expansion Eyes: PERRL Musculoskeletal: limited range of motion to right hip due to pain. Right hip is positive for mary, vladimir's, compression, and distraction. Neurological: Speech clear, no gross sensory deficit Assessment:: Right sacroiliitis Plan:: Patient is significant relief of about 80-90% after her right SI injection that lasted for a week. Patient would like to schedule another right SI injection. Risks and benefits of the procedure have been explained to the patient. Patient would like to proceed with the procedure. I discussed with the patient that if she gets temporary relief after these injections, she is a good candidate for a sacroiliac joint stabilization procedure. Patient has been instructed to contact the clinic with any concerns before the next appointment. Dr. James has reviewed this note and agrees with this plan of care. This note was dictated using voice recognition software and make contain errors or omissions. [facility] History Medical History: Reports:: Anxiety, Depression, Diabetes Mellitus Type 2, Gastroesophageal Reflux Disease(GERD), Hyperlipidemia, Hypertension, Lung Disease Denies:: Cancer, Diabetes Mellitus Type 1, Internal Pacemaker, MRSA, Seizures *Have you ever received a pneumonia vaccine?: Yes *Have you received a flu vaccine this season?: Yes Other Medical History: Reports: Arthritis, Fibromyalgia, Hypothyroidism, Thyroid Disease Laterality Cases: Right: Carpal Tunnel Release, Bilateral: Breast Biopsy, Other Other Surgeries: Yes: Colonoscopy, Other (breast reduction). No: Pacemaker Amputation: No Fractures: No - *Social History Smoking Status: Never smoker Alcohol Intake: never Alcohol Intake Frequency:: other Substance Use Type: denies use *Occupational Status:: unemployed Housing: apartment Household Members: none *Travel in the last 8 weeks: None - Psychiatric History Pschychiatric History:: Reports:: Anxiety, Depression Family Hx:: Other
== END ==
PROVIDERS: Visit Provider Clinical Nurse Specialist Family Health
DX: M46.1 Sacroiliitis, not elsewhere classified (principal)
CPT/HCPCS: 99212; G0463

== ENCOUNTER 2021-07-20 09:50 | Day surgery (SDC) | payer MEDICARE, OTHER, MEDICAID, SELFPAY ==
[2021-07-20 09:54] VITALS: BP 166/99; PULSE 110; RESP 20; TEMP 36.6; O2SAT 95; BMI 37.9
[2021-07-20 10:04] VITALS: BP 139/76; PULSE 85; RESP 20; O2SAT 100
[2021-07-20 10:09] VITALS: BP 136/70; PULSE 97; RESP 18; O2SAT 95
--- NOTE | 2021-07-20 10:16 | P.PCN_ITS ---
- Procedure Date: 07/20/21 Time: 10:16 Anesthesiologist:: Aashish James MD Complications:: None Pre-procedure Diagnosis:: Sacroiliitis Post-procedure Diagnosis:: Same Indications for Procedure:: The patient is a pleasant 56-year-old white female who we are treating for right-sided hip pain. She is tender over the right SI joint. She does have a positive Enid's test on the right side. She is positive Calos test on the right side. She has positive SI joint compression test on the right side. We will plan on a right SI joint injection under fluoroscopy to help with her pain symptoms. Procedure Details:: Right SI joint injection under fluoroscopy Informed consent was obtained and the risks and benefits of the procedure was going to the patient. Patient was taken to the procedure room. Patient was placed prone on the procedure table. The right hip was prepped using ChloraPrep. The skin and subcutaneous tissues were anesthetized using lidocai ne. I placed a 22-gauge spinal needle into the inferior aspect of the right SI joint. Needle placement was confirmed with dye. After this we injected 5 mL bupivacaine 0.25% and Depo-Medrol 40 mg into the right SI joint. The patient tolerated the procedure well with no complication. Plan and Disposition:: This patient got great relief from her first injection however only for 7 days. Given the morphology of her joint I do believe she would be a candidate for SI joint stabilization with the omnia system.
[2021-07-20 10:20] VITALS: BP 117/70; PULSE 90; RESP 20; O2SAT 95
== END 2021-07-20 10:20 | disposition home or self-care (01) ==
LOC: SC.PAINP 09:51
PROVIDERS: PCP Emergency Medicine; Visit Provider Anesthesiology
DX: M46.1 Sacroiliitis, not elsewhere classified (principal); E78.5 Hyperlipidemia, unspecified; I10 Essential (primary) hypertension; K21.9 Gastro-esophageal reflux disease without esophagitis; N18.9 Chronic kidney disease, unspecified; M19.90 Unspecified osteoarthritis, unspecified site; M79.7 Fibromyalgia
CPT/HCPCS: 27096; G0260; J1040; Q9966

== ENCOUNTER → 2021-08-06 10:26 | Outpatient (POV) | payer MEDICARE, OTHER, MEDICAID, SELFPAY ==
[2021-08-06 11:23] VITALS: BP 143/84; PULSE 89; RESP 18; TEMP 36.3; O2SAT 97; BMI 37.9
--- NOTE | 2021-08-06 12:27 | P.CONS_ITS ---
[facility] Pain Management SOAP Note Subjective:: Patient is a pleasant 56-year-old female who comes in here today for a follow-up after a right SI injection #2 on July 20, 2021. Patient is currently being treated for a right sacroiliitis. Patient states that her first SI injection only lasted for about 7 days. Today, patient states that the second injection is providing her longer relief of about 80%. She rates her pain today as 5 out of 10. She denies any issues with the injections. She Is currently being managed with gabapentin 600 mg 3 times a day and tramadol 50 mg 2 times a day that is prescribed by Dr. Wade. Agustín #[phone] with an active morphine equivalent of 10. Review of Systems General: No recent weight changes, no fever, no sleep disturbances Respiratory: No cough, no shortness of air, no recurring pulmonary infections Cardiovascular/peripheral vascular: No chest pain, no palpitations, no edema, no shortness of breath Gastrointestinal: No new onset incontinence, normal bowel movements reported Genitourinary: No new onset incontinence Musculoskeletal: improving right hip pain Psychiatric: [Normal mood/affect] Neurological: [Denies weakness in extremities], [denies balance issues] Objective:: Physical exam General: Alert and oriented x3, no acute distress, pleasant and cooperative Lungs: Respirations even and unlabored, symmetrical chest expansion Eyes: PERRL Musculoskeletal: Increased range of motion of the right hip. Neurological: Speech clear, no gross sensory deficit Assessment:: Sacroiliitis Plan:: Patient has had 2 SI injections. The first injection only lasted about 7 days. This second SI injection is providing her longer relief. We will follow-up with the patient in 3 months. I did discuss with the patient that she is a good candidate for a sacroiliac stabilization procedure with the omnia system. If patient gets increased pain in the next 3 months, we will asked the patient if she would like to move forward with the sacroiliac stabilization procedure with the omnia system. Patient has been instructed to contact the clinic with any concerns before the next appointment. This note was dictated using voice recognition software and may contain errors or omissions. [facility] History Medical History: Reports:: Anxiety, Depression, Diabetes Mellitus Type 2, Gastroesophageal Reflux Disease(GERD), Hyperlipidemia, Hypertension, Lung Disease, MRSA Denies:: Cancer, Diabetes Mellitus Type 1, Internal Pacemaker, Seizures *Have you ever received a pneumonia vaccine?: Yes *Have you received a flu vaccine this season?: Yes Other Medical History: Reports: Arthritis, Fibromyalgia, Hypothyroidism, Thyroid Disease Laterality Cases: Right: Carpal Tunnel Release, Bilateral: Breast Biopsy, Other Other Surgeries: Yes: Colonoscopy, Other (breast reduction). No: Pacemaker Amputation: No Fractures: No - *Social History Smoking Status: Never smoker Alcohol Intake: never Alcohol Intake Frequency:: other Substance Use Type: denies use *Occupational Status:: employed Housing: house Household Members: other *Travel in the last 8 weeks: None - Psychiatric History Pschychiatric History:: Reports:: Anxiety, Depression Family Hx:: Other
== END ==
PROVIDERS: Visit Provider Student in an Organized Health Care Education/Training Program
DX: M46.1 Sacroiliitis, not elsewhere classified (principal)
CPT/HCPCS: 99212; G0463

== ENCOUNTER → 2021-09-13 12:27 | Outpatient (CLI) | payer MEDICARE, MEDICAID, SELFPAY | PROVIDERS: Visit Provider Podiatrist | DX: B35.1 Tinea unguium (principal) | CPT/HCPCS: 87102; 87206 ==

== ENCOUNTER → 2021-10-01 18:27 | Outpatient (CLI) | payer MEDICARE, OTHER, MEDICAID, SELFPAY ==
[2021-10-01 14:37] LABS: Hemoglobin A1C 8.1 % (4.0-6.0)
== END ==
PROVIDERS: Visit Provider Emergency Medicine
DX: E11.40 Type 2 diabetes mellitus with diabetic neuropathy, unspecified (principal); Z79.4 Long term (current) use of insulin
CPT/HCPCS: 83036

== ENCOUNTER → 2021-11-05 09:13 | Outpatient (POV) | payer MEDICARE, OTHER, MEDICAID, SELFPAY ==
[2021-11-05 09:59] VITALS: BP 153/88; PULSE 96; RESP 18; TEMP 36.8; O2SAT 95; BMI 36.8
--- NOTE | 2021-11-05 10:55 | P.CONS_ITS ---
[facility] Pain Management SOAP Note Subjective:: Patient is a pleasant 56-year-old female who presents today for follow-up. Patient is currently being treated for right-sided sacroiliitis. We have been managing this patient with injective therapy. Her last right SI injection was on July 20, 2021. She has had 2 SI injections that provided 80 to 90% of relief. Today, patient presents for 3-month follow-up and states that she still having significant relief from this injection. Reports no other issues today. She continues to take gabapentin and tramadol that are prescribed by Dr. Wade. Rates pain today as 4 out of 10. [facility] [phone] with an active morphine equivalent of 10. Review of Systems: General: No recent weight changes, no fever, no sleep disturbances Respiratory: No cough, no shortness of air, no recurring pulmonary infections Cardiovascular/peripheral vascular: No chest pain, no palpitations, no edema, no shortness of breath Gastrointestinal: No new onset incontinence, normal bowel movements reported Genitourinary: No new onset incontinence Musculoskeletal: Low back pain, right hip pain Psychiatric: [Normal mood/affect] Neurological: [Denies weakness in extremities], [denies balance issues] Objective:: Physical Exam: General: Alert and oriented x3, no acute distress, pleasant and cooperative Lungs: Respirations even and unlabored, symmetrical chest expansion Eyes: PERRL Musculoskeletal: Flexion and extension of lumbar [spine] somewhat guarded secondary to pain, [antalgic gait noted] Neurological: Speech clear, no gross sensory deficit Assessment:: Right-sided sacroiliitis Plan:: Patient continues to have significant relief after her right SI injection on July 20, 2021. We will follow-up with this patient in 3 months to reevaluate chronic pain syndrome and to see if she needs repeat injections. Patient has been instructed to contact the clinic with any concerns before the next appointment. Dr. James has reviewed this note and agrees with this plan of care. This note was dictated using voice recognition software and make contain errors or omissions. [facility] History Medical History: Reports:: Anxiety, Depression, Diabetes Mellitus Type 2, Gastroesophageal Reflux Disease(GERD), Hyperlipidemia, Hypertension, Internal Pacemaker, Lung Disease Denies:: Cancer, Diabetes Mellitus Type 1, MRSA, Seizures *Have you ever received a pneumonia vaccine?: Yes *Have you received a flu vaccine this season?: Yes Other Medical History: Reports: Arthritis, Fibromyalgia, Hypothyroidism, Thyroid Disease Laterality Cases: Right: Carpal Tunnel Release, Bilateral: Breast Biopsy, Other Other Surgeries: Yes: Colonoscopy, Pacemaker, Other (breast reduction) Amputation: No Fractures: No - *Social History Smoking Status: Never smoker Alcohol Intake: never Alcohol Intake Frequency:: other Substance Use Type: denies use *Occupational Status:: unemployed Housing: house Household Members: other *Travel in the last 8 weeks: None - Psychiatric History Pschychiatric History:: Reports:: Anxiety, Depression Family Hx:: Other
== END ==
PROVIDERS: Visit Provider Student in an Organized Health Care Education/Training Program
DX: M46.1 Sacroiliitis, not elsewhere classified (principal)
CPT/HCPCS: 99212; G0463

== ENCOUNTER → 2021-11-27 13:48 | Outpatient (CLI) | payer MEDICARE, OTHER, MEDICAID, SELFPAY ==
[2021-11-27 13:53] LABS: Microscopic, Urine URINE MICROSCOPIC (MICROSCOPIC)
[2021-11-27 14:29] LABS: Hematocrit 43.6 % (37.0-47.0); Hemoglobin 14.1 g/dL (12.2-16.2); Mean Corpuscular HGB Conc 32.5 g/dL (31.8-35.4); Mean Corpuscular Hemoglobin 30.5 pg (27.0-31.2); Mean Corpuscular Volume 94.1 fl (81-99); Platelet Count 304 K/mm3 (142-424); Red Blood Count 4.63 M/mm3 (4.20-5.40); Red Cell Distribution Width 13.8 % (11.5-17.5); White Blood Count 8.3 K/mm3 (4.8-10.8)
[2021-11-27 15:10] LABS: Albumin Level 4.2 g/dl (3.5-5.0); Anion Gap 15.2 mEq/L (5-15); Blood Urea Nitrogen 12 mg/dl (7-17); Calcium 9.6 mg/dl (8.4-10.2); Carbon Dioxide 29 mmol/L (22.0-30.0); Chloride 99 mmol/L (98-107); Estimated Glomerular Filt Rate 47 ml/min (>60); GFR (African American) 56 ML/MIN (>60); Glucose 280 mg/dl (74-100); Phosphorous 3.9 mg/dl (2.5-4.5); Potassium 4.2 mmoL/L (3.5-5.1); Sodium 139 mmol/L (136-145)
[2021-11-27 15:56] LABS: Appearance,Urine CLEAR (Clear); Bilirubin,Urine Negative (Negative); Blood, Urine Negative (Negative); Color,Urine YELLOW (Yellow); Glucose,Urine (UA) 3+ (Negative); Ketones,Urine Negative (Negative); Leukocyte Esterase,Urine Negative (Negative); Nitrate,Urine Negative (Negative); Protein,Urine Negative (Negative); Specific Gravity, Urine >= 1.030 (1.005-1.030); Urobilinogen,Urine 0.2 EU/dl (0.2)
[2021-11-27 16:04] LABS: Creatinine,Urine Random 155 mg/dL (Not Estab.)
[2021-11-27 20:11] LABS: RBC,Urine Occasional #/hpf (0-3)
== END ==
PROVIDERS: PCP Emergency Medicine; Visit Provider Internal Medicine Nephrology
DX: N18.2 Chronic kidney disease, stage 2 (mild) (principal)
CPT/HCPCS: 36415; 80069; 81001; 82570; 84155; 85014; 85018; 85048; 85049

== ENCOUNTER → 2021-12-06 15:41 | Outpatient (POV) | payer MEDICARE, OTHER, MEDICAID, SELFPAY | PROVIDERS: Visit Provider Internal Medicine Nephrology | DX: Z00.00 Encounter for general adult medical examination without abnormal findings (principal) ==

== ENCOUNTER → 2022-02-05 08:41 | Outpatient (POV) | payer MEDICARE, MEDICAID, SELFPAY ==
--- NOTE | 2022-02-05 08:56 | A.OFFVIS_ITS ---
[facility] Pain Management SOAP Note Subjective:: Patient is a pleasant 56-year-old female who presents today for follow-up. We are currently treating the patient for right-sided sacroiliitis. Today the patient rates her pain a 2 out of 10 and states the pain is primarily in her middle low back and describes it as an aching sensation. We have done injective therapy in the past for this patient who provided significant improvement of her symptoms. Patient is managed with gabapentin 600 mg 3 times a day and tramadol 50 mg twice a day by Dr. Wade. Patient denies any side effects from these medications. She states these medications are adequately managing her pain. Her Agustín is [phone]. Its been reviewed and appropriate. Review of Systems: General: No recent weight changes, no fever, no sleep disturbances Respiratory: No cough, no shortness of air, no recurring pulmonary infections Cardiovascular/peripheral vascular: No chest pain, no palpitations, no edema, no shortness of breath Gastrointestinal: No new onset incontinence, normal bowel movements reported Genitourinary: No new onset incontinence Musculoskeletal: Low back pain Psychiatric: [Normal mood/affect] Neurological: [Denies weakness in extremities], [denies balance issues] Objective:: Physical Exam: General: Alert and oriented x3, no acute distress, pleasant and cooperative Lungs: Respirations even and unlabored, symmetrical chest expansion Eyes: PERRL Musculoskeletal: Flexion and extension of lumbar [spine] somewhat guarded secondary to pain, [antalgic gait noted] Neurological: Speech clear, no gross sensory deficit Assessment:: Right-sided sacroiliitis, low back pain Plan:: Patient continues to have significant improvement of her pain symptoms following her injection in July 2021. At this time the patient does not need additional injective therapy. We will schedule the patient for a 3-month follow-up. She will return to clinic in 3 months for reevaluation of symptoms. She has been counseled she can contact the office sooner if needed. Patient has been instructed to contact the clinic with any concerns before the next appointment. Dr. James has reviewed this note and agrees with this plan of care. This note was dictated using voice recognition software and make contain errors or omissions. [facility] Medical History (Updated 06/28/21 @ 20:28 by Tien Wade MD) Diabetes Social History Smoking Status: Never smoker second hand exposure: No alcohol intake: never counseling provided: none substance use type: denies use current occupational status: unemployed Travel in the last 8 weeks: None household members: other housing: house number of children: 1 current occupational exposures/hazards: No caffeine: Yes
[2022-02-05 09:03] VITALS: BP 156/95; PULSE 120; RESP 18; TEMP 36.3; O2SAT 95; BMI 37.8
== END ==
PROVIDERS: PCP Emergency Medicine; Visit Provider Nurse Practitioner Family
DX: M46.1 Sacroiliitis, not elsewhere classified (principal); M54.50 Low back pain, unspecified
CPT/HCPCS: 99212; G0463

== ENCOUNTER → 2022-02-13 06:21 | Outpatient (CLI) | payer MEDICARE, MEDICAID, SELFPAY ==
[2022-02-13 18:02] LABS: Basophils # 0.1 K/mm3 (0-0.2); Basophils % 0.9 % (0.1-2.0); Eosinophils # 0.1 K/mm3 (0.0-0.4); Eosinophils % 0.9 % (0.1-12.0); Hematocrit 47.1 % (37.0-47.0); Hemoglobin 15.1 g/dL (12.2-16.2); Lymphocytes # 1.3 K/mm3 (0.7-4.5); Lymphocytes % 8.5 % (10-50); Mean Corpuscular HGB Conc 32.1 g/dL (31.8-35.4); Mean Corpuscular Hemoglobin 29.6 pg (27.0-31.2); Mean Corpuscular Volume 92.4 fl (81-99); Mean Platelet Volume 10.6 fl (7.4-10.4); Monocytes # 0.7 K/mm3 (0.1-1.0); Neutrophils # 12.4 K/mm3 (1.8-7.8); Neutrophils % 84.8 % (37.0-80.0); Platelet Count 352 K/mm3 (142-424); Red Blood Count 5.09 M/mm3 (4.20-5.40); Red Cell Distribution Width 13.4 % (11.5-17.5); White Blood Count 14.7 K/mm3 (4.8-10.8)
[2022-02-13 18:08] LABS: Alanine Aminotransferase 49 U/L (12-78); Albumin Level 4.3 g/dl (3.5-5.0); Albumin/Globulin Ratio 1.5 (1.1-1.8); Alkaline Phosphatase 187 U/L (38-126); Anion Gap 19.4 mEq/L (5-15); Aspartate Amino Transferase 49 U/L (14-36); Bilirubin,Total 0.2 mg/dl (0.2-1.3); Blood Urea Nitrogen 15 mg/dl (7-17); Calcium 9.4 mg/dl (8.4-10.2); Carbon Dioxide 22 mmol/L (22.0-30.0); Chloride 96 mmol/L (98-107); Estimated Glomerular Filt Rate 58 ml/min (>60); GFR (African American) 70 ML/MIN (>60); Globulin 2.9 g/dL (1.3-3.2); Potassium 4.4 mmoL/L (3.5-5.1); Sodium 133 mmol/L (136-145); Total Protein,Serum 7.2 g/dl (6.3-8.2)
[2022-02-13 18:24] LABS: Free T4 (Free Thyroxine) 1.57 ng/dl (0.78-2.19)
[2022-02-13 18:31] LABS: Glucose 607 mg/dl (74-100)
[2022-02-13 18:39] LABS: Thyroid Stimulating Hormone 1.65 uIU/mL (0.465-4.68)
[2022-02-13 19:02] LABS: Hemoglobin A1C 10.3 % (4.0-6.0)
[2022-02-13 19:20] LABS: Microalbumin/Creatinine Ratio 22.4
[2022-02-13 19:22] LABS: Amphetamine/Metha Screen,Urine Negative ng/ml (<1000)
[2022-02-13 19:23] LABS: Barbiturates Screen,Urine Negative ng/ml (<200); Benzodiazepines Screen,Urine Negative ng/ml (<200)
[2022-02-13 19:24] LABS: Cannabinoid Screen,Urine Negative ng/ml (<50)
[2022-02-13 19:25] LABS: Cocaine Screen,Urine Negative ng/ml (<300); Methadone Screen,Urine Negative ng/ml (<300)
[2022-02-13 19:26] LABS: Opiate Screen,Urine Negative ng/ml (<300)
[2022-02-13 19:27] LABS: Phencyclidine Screen,Urine Negative ng/ml (<25)
[2022-02-13 19:32] LABS: Creatinine,Urine Random 62 mg/dL (Not Estab.)
== END ==
PROVIDERS: PCP Emergency Medicine; Visit Provider Emergency Medicine
DX: Z79.4 Long term (current) use of insulin; M51.36 Other intervertebral disc degeneration, lumbar region; E11.9 Type 2 diabetes mellitus without complications
CPT/HCPCS: 80053; 80305; 82043; 82570; 83036; 84439; 84443; 85025

== ENCOUNTER → 2022-03-04 09:49 | Outpatient (CLI) | payer MEDICARE, MEDICAID, SELFPAY ==
--- NOTE | 2022-03-04 09:55 | XR_ITS ---
FINAL REPORT CLINICAL HISTORY: dyspnea FINDINGS: Two views of the chest were obtained. The heart size and pulmonary vascularity are within normal limits. The mediastinum is normal. No acute pulmonary abnormality is identified. There is no pneumothorax. The bony thorax is intact. IMPRESSION: No active cardiopulmonary disease. Reviewed, Interpreted and Dictated by Salvador Prado III, MD Transcribed by Tiff Groves Authenticated and [facility]
== END ==
PROVIDERS: PCP Emergency Medicine; Visit Provider Emergency Medicine
DX: R06.00 Dyspnea, unspecified (principal)
CPT/HCPCS: 71046

== ENCOUNTER → 2022-03-06 07:08 | Outpatient (CLI) | payer MEDICARE, MEDICAID, SELFPAY ==
--- NOTE | 2022-03-06 | CA_ITS ---
APPROVED REPORT Exam: Pharmacologic Technologist: Maria Luz De Anda Ht: 5 ft 6 in Wt: 240 lbs BSA: 2.16 m2 HR: 78 bpm BP: 131/82 mmHg Indications: Murmur, chest pain Medical History Medications: Levothyroxine,,,,, Aspirin,,,,, Gabapentin,,,,, Vitamin D3,,,,, Pantoprazole,,,,, Atorvastatin,,,,, Lisinopril/HCTZ,,,,, INSULIN,,,,, Diclofenac,,,,, DulOXETINE,,,,, FluTICASONE,,,,, Fluoxetine,,,,, Stress Test Details Test: LEXISCAN HR Resting HR: 94 bpm Max Heart Rate (APMHR): 164.971362 bpm Max HR Achieved: 123 bpm Target HR (85% APMHR): 139.183647 bpm % of APMHR: 75.00 Recovery HR: 93 bpm BP Resting BP: 131.0/82.0 mmHg Max BP: 157.0/82.0 mmHg Recovery BP: 129.0/75.0 mmHg ECG Resting ECG: Normal sinus rhythm, ST-T abnormalities inferiorly and laterally, PACs Clinical Exercise duration: 04:00 min Highest Stage Achieved: Exercise capacity: 1.0 METs Stress ECG Conclusion Symptoms: Mild shortness of air and head discomfort. No chest pain. Arrhythmias/Ectopy: Occasional ectopic beat, either junctional or ventricular. ST-T Changes: Exaggeration of baseline ST-T abnormalities. Conclusion: Non-diagnostic Lexiscan stress. Myoview images reported separately. Electronically signed by : Gen Gonzales MD 03/06/2022 13:12:50
--- NOTE | 2022-03-06 07:08 | NM_ITS ---
APPROVED REPORT Exam: Nuclear Stress Test Indication: HTN, D.M., HYPERLIPIDEMIA, FM HX., SOB, MURMUR, C.P. Patient Location: Outpatient Stress Tech: Maria Luz De Anda [place] Tech:Halina Kelly ROBERTH RT (R)(N)(M) Ht: 5 ft 6 in Wt: 235 lbs Bra Size: 44B HR: 78 bpm BP: 131/82 mmHg BSA: 2.14 m2 TID: 1.23 BMI: 37.9 History: HTN, D.M., HYPERLIPIDEMIA, FM HX., SOB, MURMUR, C.P. Procedure: Patient received a 0.4 mg of intravenous Lexiscan, resting heart rate 78 bpm, resting blood pressure 131/82 mmHg, with Lexiscan maximum heart rate achived was 119 bpm which is Less than 85 % of the maximum predicted heart rate and blood pressure was 157/82 mmHg. With Lexiscan, patient denied any complaint of chest pain. Electrocardiogram Resting electrocardiogram shows sinus rhythm, with Lexiscan there is less than 1.[address] segment depression noted from the baseline EKG. The EKG portion of the Lexiscan is nondiagnostic. Cardiac Stress and Resting SPECT Images: Cardiac Stress and Resting SPECT images were obtained using technetium 99m Myoview 31.4 mCi stress and 10.85 mCi at rest. Gated SPECT analysis of segmental wall motion and calculation of the ejection fraction also done. Prone images were also obtained. Cardiac stress and rest SPECT show uniform myocardial activity without segmental perfusion abnormality, computer derived ejection fraction is 65% with no regional wall motion abnormality, right ventricle is normal size and contractility. Conclusion: 1. The EKG portion of the Lexiscan is nondiagnostic. 2. No scintigraphic evidence of reversible ischemia seen, computer derived ejection fraction is 65% with no regional wall motion abnormality, right ventricle is normal size and contractility. 3. Normal Lexiscan Myoview study. Electronically signed by : Gen Gonzales MD 03/06/2022 13:15:54
--- NOTE | 2022-03-06 09:10 | CA_ITS ---
APPROVED REPORT EXAM: Comprehensive 2D, Doppler, and color-flow Echocardiogram Wet Char Conveyor Tender: Eugenia Wayne, KIRSTEN, RVS Ht: 5 ft 5 in Wt: 238lbs BSA: 2.13 BP: 126/80 mmHg Indications: SOA, Murmur, DM, CP, HTN,HLD 2D Dimensions IVSd 1.14 cm LVEF (Visual) 66.80 % PWd 0.93 cm LA Volume 44.10 mL LVDd 4.06 cm LA Volume Index 20.70 mL/m2 (M/F) 16-34 LVDs 2.58 cm Aortic Root 2.56 cm Left Atrium 3.19 cm LVOT 1.86 cm (M/F) 1.5-2.5 M-Mode Dimensions LA Diam 3.39 cm (1.9-4.0) Ao Diam 2.74 cm (2.0-3.7) EPSs 0.53 cm TAPSE 2.22 (<1.7) LV Diastology E Decel Time 203.00 (160-240 msec) E/A Ratio 1.09 MED E' 7.70 (< 7 cm/sec) MED A' 10.80 cm/s E'/MED E' Ratio 8.03 (>14) LAT E' 10.10 (<10 cm/sec) LAT A' 11.90 cm/s E/LAT E' Ratio 6.12 (>14) Aortic Valve LVOT Max 89.00 (70-110 cm/s) LVOT VTI 16.75 cm AoV Peak Cole. 155.00 (50-130 cm/s) AO Peak GR. 9.70 mmHg AO Mean GR. 4.80 (<5 mmHg) AO VTI 29.11 (18-25 cm) GEOFFREY (VTI) 1.56 (2.5-4.5 cm2) Mitral Valve MV A Velocity 57.00 (40-130 cm/s) E/A Ratio 1.09 MV Decel. Time 203.00 (160-240 ms) MV Mean Gr. 1.00 (<2mmHg) MV PHT 60.00 ms Pulmonary Valve PV Peak Velocity 113.00 (50-150 cm/s) Tricuspid Valve TR P. Velocity 140.00 cm/s RAP Estimate 10.00 mmHg RVSP 17.80 mmHg Left Ventricle Left atrium is mildly enlarged, left ventricle is normal size mild concentric left ventricular hypertrophy, estimated ejection fraction 55% with no regional wall motion abnormality, grade 1 diastolic dysfunction seen without tissue Doppler evidence of raise left atrial pressure. Right Ventricle Right atrium and right ventricle are mildly enlarged with normal contractility. Aortic Valve Aortic valve is minimally thickened and fibrosed there is no aortic stenosis or aortic insufficiency. Mitral Valve Mitral valve grossly normal, there is trace mitral regurgitation. Tricuspid Valve Tricuspid valve grossly normal, there is trace tricuspid regurgitation, tricuspid regurgitation jet velocity is inadequate for calculation of the right ventricular systolic pressure. Pulmonic Valve Pulmonic valve is poorly visualized. Great Vessels Aortic root is normal size. Inferior vena cava normal size with normal inspiratory collapse. Pericardium No significant pericardial effusion noted. Conclusion 1. Mild biatrial enlargement, normal left ventricular size mild concentric left ventricular hypertrophy, estimated ejection fraction 55% with no regional wall motion abnormality, grade 1 diastolic dysfunction seen without tissue Doppler evidence of raise left atrial pressure. 2. Mildly enlarged right ventricle with normal contractility. 3. Trace mitral and tricuspid regurgitation. 4. No significant pericardial effusion. 5. Inferior vena cava is normal size with normal inspiratory collapse. Electronically signed by : Gen Gonzales MD 03/07/2022 05:49:57
== END ==
PROVIDERS: PCP Emergency Medicine; Visit Provider Emergency Medicine
DX: R07.9 Chest pain, unspecified (principal); R01.1 Cardiac murmur, unspecified
CPT/HCPCS: 78452; 93017; 93306; A9502; J2785

== ENCOUNTER → 2022-03-12 14:32 | Outpatient (CLI) | payer MEDICARE, MEDICAID, SELFPAY ==
[2022-03-12 14:14] LABS: Chloride 99 mmol/L (98-107); Potassium 4.3 mmoL/L (3.5-5.1); Sodium 138 mmol/L (136-145)
[2022-03-12 14:16] LABS: Blood Urea Nitrogen 18 mg/dl (7-17); Estimated Glomerular Filt Rate 57 ml/min (>60); GFR (African American) 69 ML/MIN (>60)
[2022-03-12 14:17] LABS: Anion Gap 18.3 mEq/L (5-15); Calcium 9.7 mg/dl (8.4-10.2); Carbon Dioxide 25 mmol/L (22.0-30.0); Chol/HDL Ratio 3.5 (1-3.5); Cholesterol 162 mg/dl (140-200); Glucose 254 mg/dl (74-100); HDL Cholesterol 46 mg/dl (40-60); Triglycerides 131 mg/dl (30-150); VLDL Cholesterol 26 mg/dL (0-40)
[2022-03-12 14:28] LABS: Direct LDL Cholesterol 91.26 mg/dL (100-129)
[2022-03-14 10:12] LABS: C-Peptide 7.7 ng/mL (1.1-4.4)
== END ==
PROVIDERS: PCP Emergency Medicine; Visit Provider Emergency Medicine
DX: E11.40 Type 2 diabetes mellitus with diabetic neuropathy, unspecified (principal); Z79.4 Long term (current) use of insulin
CPT/HCPCS: 80048; 80061; 84681

== ENCOUNTER → 2022-03-25 13:32 | Outpatient (CLI) | payer MEDICARE, MEDICAID, SELFPAY ==
[2022-03-25 14:29] VITALS: BMI 42.2
== END ==
PROVIDERS: PCP Emergency Medicine; Visit Provider Emergency Medicine
DX: Z71.3 Dietary counseling and surveillance (principal); E11.9 Type 2 diabetes mellitus without complications
CPT/HCPCS: 97802

== ENCOUNTER → 2022-04-02 07:57 | Outpatient (CLI) | payer MEDICARE, MEDICAID, SELFPAY ==
--- NOTE | 2022-04-02 07:58 | MM_ITS ---
PROCEDURE INFORMATION: Exam: MG Bilateral Screening 3D Mammography Exam date and time: 04/02/2022 8:00 AM Age: 57 years old Clinical indication: Screening mammogram. TECHNIQUE: Imaging protocol: Bilateral Screening tomosynthesis and 2D mammography including computer-aided detection (CAD) when performed. COMPARISON: 1. MG MM DIG SCREENING MAMM BI W/CAD 03/20/2021 1:00 PM 2. MG MM DIG SCREENING MAMM BI W/CAD 02/17/2020 10:54 AM 3. MG MM DIG SCREENING MAMM BI W/CAD 02/09/2019 10:35 AM 4. MG DIG MAMM-DX UNI-LT 10/08/2018 3:51 PM FINDINGS: MAMMOGRAPHY: Breast composition: The breast is heterogeneously dense, which may obscure small masses. Mass: None. Architectural distortion: No new or suspicious architectural distortion. Calcifications: No new or suspicious calcifications are present Asymmetric density: No new or suspicious asymmetric density is present Skin thickening: None. Axillary adenopathy: None. IMPRESSION: No mammographic evidence of malignancy. Recommend annual screening mammography unless otherwise clinically indicated. ASSESSMENT: BI-RADS category 1: Negative
== END ==
PROVIDERS: PCP Emergency Medicine; Visit Provider Nurse Practitioner Obstetrics & Gynecology
DX: Z12.31 Encounter for screening mammogram for malignant neoplasm of breast (principal)
CPT/HCPCS: 77063; 77067

== ENCOUNTER → 2022-05-06 08:48 | Outpatient (POV) | payer MEDICARE, MEDICAID, SELFPAY ==
[2022-05-06 09:22] VITALS: BP 147/72; PULSE 92; RESP 18; O2SAT 96; BMI 37.9
--- NOTE | 2022-05-06 09:41 | A.OFFVIS_ITS ---
[facility] Pain Management SOAP Note Subjective:: Patient is a pleasant 57-year-old female who presents today for follow-up. We are currently treating the patient for right-sided sacroiliitis. Today the patient rates her pain a 5 out of 10. Patient denies any new trauma or injury. Patient denies any change in location or type of pain she experiences. Patient last had a right SI injection on 07/20/2021 and states this injection has continued to provide significant relief of her symptoms. Patient is managed with gabapentin 600 mg 3 times a day and tramadol 50 mg twice a day from Dr. Wade's office. Patient denies any side effects from these medications. Patient states these medications do provide adequate relief of her symptoms. Patient also uses vyoc-hzr-lnygoun creams and lidocaine patches as needed to provide additional relief. Her Agustín is [id number]. It has been reviewed and appropriate. Review of Systems: General: No recent weight changes, no fever, no sleep disturbances Respiratory: No cough, no shortness of air, no recurring pulmonary infections Cardiovascular/peripheral vascular: No chest pain, no palpitations, no edema, no shortness of breath Gastrointestinal: No new onset incontinence, normal bowel movements reported Genitourinary: No new onset incontinence Musculoskeletal: Low back pain Psychiatric: [Normal mood/affect] Neurological: [Denies weakness in extremities], [denies balance issues] Objective:: Physical Exam: General: Alert and oriented x3, no acute distress, pleasant and cooperative Lungs: Respirations even and unlabored, symmetrical chest expansion Eyes: PERRL Musculoskeletal: Flexion and extension of lumbar [spine] somewhat guarded se condary to pain, [antalgic gait noted] Neurological: Speech clear, no gross sensory deficit Assessment:: Right-sided sacroiliitis Plan:: Patient continues to experience pain in her low back with radiating symptoms into her lower extremities however she has done well with her last injection and is not requiring any additional injective therapy at this time. We will follow- up with the patient in 6 months. Patient will return to clinic in 6 months for reevaluation of symptoms and follow-up. Patient has been instructed to contact the clinic with any concerns before the next appointment. Dr. James has reviewed this note and agrees with this plan of care. This note was dictated using voice recognition software and make contain errors or omissions. [facility] Disclaimer: The information contained in this section may have been updated after the patient was seen, as this information can be updated by other users. Medical History Diabetes Normal colonoscopy Surgical History Carpal tunnel syndrome, right Hx of breast reduction, elective Family History Other Cancer Coronary artery disease Diabetes Heart attack Hypertension Social History Smoking Status: Never smoker second hand exposure: No alcohol intake: never counseling provided: none substance use type: denies use current occupational status: unemployed Travel in the last 8 weeks: None household members: other housing: house number of children: 1 current occupational exposures/hazards: No caffeine: Yes
== END ==
PROVIDERS: PCP Emergency Medicine; Visit Provider Nurse Practitioner Family
DX: M46.1 Sacroiliitis, not elsewhere classified (principal); Z79.899 Other long term (current) drug therapy
CPT/HCPCS: 99212; G0463

== ENCOUNTER → 2022-05-31 11:44 | Outpatient (CLI) | payer MEDICARE, MEDICAID, SELFPAY ==
[2022-05-31 11:55] LABS: Microscopic, Urine URINE MICROSCOPIC (MICROSCOPIC)
[2022-05-31 12:48] LABS: Appearance,Urine CLEAR (Clear); Bilirubin,Urine Negative (Negative); Blood, Urine Negative (Negative); Color,Urine YELLOW (Yellow); Glucose,Urine (UA) 2+ (Negative); Ketones,Urine TRACE (Negative); Leukocyte Esterase,Urine Negative (Negative); Nitrate,Urine Negative (Negative); Protein,Urine Negative (Negative); Specific Gravity, Urine 1.015 (1.005-1.030); Urobilinogen,Urine 0.2 EU/dl (0.2)
[2022-05-31 12:50] LABS: Hematocrit 42.2 % (37.0-47.0); Hemoglobin 13.5 g/dL (12.2-16.2); Mean Corpuscular HGB Conc 31.9 g/dL (31.8-35.4); Mean Corpuscular Hemoglobin 29.6 pg (27.0-31.2); Mean Corpuscular Volume 92.8 fl (81-99); Platelet Count 286 K/mm3 (142-424); Red Blood Count 4.55 M/mm3 (4.20-5.40); White Blood Count 13.4 K/mm3 (4.8-10.8)
[2022-05-31 13:00] LABS: Chloride 99 mmol/L (98-107); Potassium 4.5 mmoL/L (3.5-5.1); Sodium 136 mmol/L (136-145)
[2022-05-31 13:01] LABS: Albumin Level 4.1 g/dl (3.5-5.0)
[2022-05-31 13:03] LABS: Anion Gap 14.5 mEq/L (5-15); Blood Urea Nitrogen 20 mg/dl (7-17); Carbon Dioxide 27 mmol/L (22.0-30.0); Estimated Glomerular Filt Rate 51 ml/min (>60); GFR (African American) 62 ML/MIN (>60); Glucose 306 mg/dl (74-100); Phosphorous 3.3 mg/dl (2.5-4.5)
[2022-05-31 13:04] LABS: Bacteria,Urine Trace /lpf; WBC,Urine Occasional #/hpf (0-3)
[2022-05-31 13:23] LABS: Creatinine,Urine Random 140 mg/dL (Not Estab.)
== END ==
PROVIDERS: PCP Emergency Medicine; Visit Provider Internal Medicine Nephrology
DX: N18.2 Chronic kidney disease, stage 2 (mild) (principal)
CPT/HCPCS: 36415; 80069; 81001; 82570; 84155; 85014; 85018; 85048; 85049

== ENCOUNTER → 2022-06-06 13:29 | Outpatient (POV) | payer MEDICARE, MEDICAID, SELFPAY | PROVIDERS: Visit Provider Internal Medicine Nephrology | DX: Z00.00 Encounter for general adult medical examination without abnormal findings (principal) ==

== ENCOUNTER → 2022-09-24 13:40 | Outpatient (POV) | payer MEDICARE, MEDICAID, SELFPAY | PROVIDERS: Visit Provider Dermatology | DX: Z00.00 Encounter for general adult medical examination without abnormal findings (principal) ==

== ENCOUNTER → 2022-09-25 08:57 | Outpatient (CLI) | payer MEDICARE, MEDICAID, SELFPAY ==
--- NOTE | 2022-09-25 09:01 | XR_ITS ---
FINAL REPORT CLINICAL HISTORY: Left foot pain FINDINGS: LEFT FOOT: Three views of the left foot were obtained. There is no acute fracture or dislocation. Mild degenerative changes are noted. There is pes planus deformity. There is no soft tissue abnormality. IMPRESSION: No acute bony abnormality. Reviewed, Interpreted and Dictated by Salvador Prado III, MD Transcribed by Aleyda Taylor Authenticated and . [facility]
== END ==
PROVIDERS: PCP Emergency Medicine; Visit Provider Podiatrist
DX: M79.672 Pain in left foot (principal)
CPT/HCPCS: 73630

== ENCOUNTER → 2022-11-04 08:42 | Outpatient (POV) | payer MEDICARE, MEDICAID, SELFPAY ==
--- NOTE | 2022-11-04 09:05 | EXP.PAIN.SOA ---
[facility] Pain Management SOAP Note Subjective:: Patient is a pleasant 57-year-old female who presents today for 6-month follow-up. We are currently treating the patient for right-sided sacroiliitis. Today she rates her pain a 0 out of 10. Patient denies any new trauma or injury. Patient denies any change to location or type of pain she experiences. She does state that she has been doing well the last 6 months and not having any additional pain issues. She is currently managed with gabapentin 600 mg 3 times a day, tramadol 50 mg twice a day and methylphenidate [address] Wade's office. Patient denies any side effects from these medications. Her Agustín is [phone]. Has been reviewed and appropriate. Review of Systems: General: No recent weight changes, no fever, no sleep disturbances Respiratory: No cough, no shortness of air, no recurring pulmonary infections Cardiovascular/peripheral vascular: No chest pain, no palpitations, no edema, no shortness of breath Gastrointestinal: No new onset incontinence, normal bowel movements reported Genitourinary: No new onset incontinence Musculoskeletal: Low back pain Psychiatric: [Normal mood/affect] Neurological: [Denies weakness in extremities], [denies balance issues] Objective:: Physical Exam: General: Alert and oriented x3, no acute distress, pleasant and cooperative Lungs: Respirations even and unlabored, symmetrical chest expansion Eyes: PERRL Musculoskeletal: Flexion and extension of lumbar [spine] somewhat guarded secondary to pain, [antalgic gait noted] Neurological: Speech clear, no gross sensory deficit Assessment:: Right-sided sacroiliitis, low back pain Plan:: Patient continues to do well and does not require any conservative therapies at this time. Patient will return to clinic in 1 year for reevaluation of symptoms and plan of care. Patient has been instructed to contact the clinic with any concerns before the next appointment. Dr. James has reviewed this note and agrees with this plan of care. This note was dictated using voice recognition software and make contain errors or omissions. [facility] Disclaimer: The information contained in this section may have been updated after the patient was seen, as this information can be updated by other users. Medical History Diabetes Generalized anxiety disorder HTN (hypertension) Major depressive disorder Normal colonoscopy Surgical History Carpal tunnel syndrome, right Hx of breast reduction, elective Family History Other Cancer Coronary artery disease Diabetes Heart attack Hypertension Social History Smoking Status: Never smoker second hand exposure: No alcohol intake: never counseling provided: none substance use type: denies use current occupational status: unemployed Travel in the last 8 weeks: None household members: other housing: house number of children: 1 current occupational exposures/hazards: No caffeine: Yes
[2022-11-04 09:56] VITALS: BP 135/76; PULSE 90; RESP 18; O2SAT 98; BMI 41.1
== END ==
PROVIDERS: PCP Emergency Medicine; Visit Provider Nurse Practitioner Family
DX: M46.1 Sacroiliitis, not elsewhere classified (principal); M54.50 Low back pain, unspecified
CPT/HCPCS: 99212; G0463

== ENCOUNTER → 2023-03-26 10:32 | Outpatient (CLI) | payer MEDICARE, MEDICAID, SELFPAY ==
[2023-03-26 11:00] LABS: Basophils % 0.4 % (0.1-2.0); Eosinophils # 0.1 K/mm3 (0.0-0.4); Eosinophils % 1.8 % (0.1-12.0); Hematocrit 40.6 % (37.0-47.0); Hemoglobin 14.1 g/dL (12.2-16.2); Lymphocytes # 1.1 K/mm3 (0.7-4.5); Lymphocytes % 14.2 % (10-50); Mean Corpuscular HGB Conc 34.7 g/dL (31.8-35.4); Mean Corpuscular Volume 89.4 fl (81-99); Mean Platelet Volume 8.9 fl (7.4-10.4); Monocytes # 0.4 K/mm3 (0.1-1.0); Monocytes % 5.3 % (1.7-9.3); Neutrophils # 6.2 K/mm3 (1.8-7.8); Neutrophils % 78.3 % (37.0-80.0); Platelet Count 244 K/mm3 (142-424); Red Blood Count 4.54 M/mm3 (4.20-5.40); Red Cell Distribution Width 13.2 % (11.5-17.5); White Blood Count 7.9 K/mm3 (4.8-10.8)
[2023-03-26 11:22] LABS: Alanine Aminotransferase 49 U/L (12-78); Albumin Level 4.5 g/dl (3.5-5.0); Alkaline Phosphatase 111 U/L (38-126); Anion Gap 15.2 mEq/L (5-15); Aspartate Amino Transferase 47 U/L (14-36); Bilirubin,Direct 0.1 mg/dl (0.0-0.4); Bilirubin,Indirect 0.4 mg/dL (0.0-0.9); Bilirubin,Total 0.5 mg/dl (0.2-1.3); Bilirubin,Unconjugated 0.4 mg/dL (0.0-1.1); Blood Urea Nitrogen 18 mg/dl (7-17); Calcium 9.9 mg/dl (8.4-10.2); Carbon Dioxide 26 mmol/L (22.0-30.0); Chloride 102 mmol/L (98-107); Estimated Glomerular Filt Rate 57 ml/min (>60); GFR (African American) 69 ML/MIN (>60); Glucose 147 mg/dl (74-100); Potassium 4.2 mmoL/L (3.5-5.1); Sodium 139 mmol/L (136-145); Total Protein,Serum 7.5 g/dl (6.3-8.2)
[2023-03-26 11:29] LABS: Iron 120 ug/dL (37-170)
[2023-03-26 11:40] LABS: Free T4 (Free Thyroxine) 1.32 ng/dl (0.78-2.19)
[2023-03-26 11:53] LABS: Thyroid Stimulating Hormone 1.41 uIU/mL (0.465-4.68)
[2023-03-26 12:28] LABS: Vitamin B12 791 pg/mL (239-931)
[2023-03-26 14:17] LABS: Folate > 20.00 ng/mL
== END ==
PROVIDERS: PCP Emergency Medicine; Visit Provider Physician Assistant
DX: I10 Essential (primary) hypertension (principal); Z86.73 Personal history of transient ischemic attack (TIA), and cerebral infarction without residual deficits; N28.9 Disorder of kidney and ureter, unspecified; R05.9 Cough, unspecified; R06.00 Dyspnea, unspecified; E78.5 Hyperlipidemia, unspecified; E11.9 Type 2 diabetes mellitus without complications; Z79.4 Long term (current) use of insulin; E66.9 Obesity, unspecified; Z68.41 Body mass index [BMI] 40.0-44.9, adult
CPT/HCPCS: 36415; 80048; 80076; 82607; 82746; 83540; 84439; 84443; 85025

== ENCOUNTER → 2023-04-09 08:32 | Outpatient (CLI) | payer MEDICARE, MEDICAID, SELFPAY ==
--- NOTE | 2023-04-09 08:39 | CA_ITS ---
APPROVED REPORT EXAM: Comprehensive 2D, Doppler, and color-flow Echocardiogram Seismograph Operator Helper: Yari Leyva RT(R) Ht: 5 ft 6 in Wt: 254lbs BSA: 2.21 BP: 139/84 mmHg Indications: dyspnea, HTN, renal insufficiency, cough 2D Dimensions LVOT 1.99 cm (M/F) 1.5-2.5 LVEF (Visual) 55.00 % LVEF (Price's) 36.90 % F: 54 - 74 LV Volume 122.10 mL F: 46 - 106 LV Volume Index 55.00 mL/m2 F: 29 - 61 LA Volume 24.80 mL LA Volume Index 11.17 mL/m2 (M/F) 16-34 M-Mode Dimensions RVDd 2.74 cm (0.9-2.6) LA Diam 3.87 cm (1.9-4.0) LVDd 4.02 cm (3.5-5.7) Ao Diam 2.87 cm (2.0-3.7) LVDs 2.98 cm (3.5-5.7) IVSd 0.89 cm (0.6-1.1) PWd 0.80 cm (0.6-1.1) EF (Teich) 51.40% FS 25.90% EDV (Teich) 70.80 mL ESV (Teich) 34.40 mL LV Diastology E Decel Time 230.00 (160-240 msec) E/A Ratio 1.1 MED E' 11.60 (< 7 cm/sec) E'/MED E' Ratio 7.01 (>14) LAT E' 9.40 (<10 cm/sec) E/LAT E' Ratio 8.65 (>14) Mitral Valve MV E Max Cole. 81.00 (40-130 cm/s) MV A Velocity 74.00 (40-130 cm/s) E/A Ratio 1.10 MV Decel. Time 230.00 (160-240 ms) MV PHT 67.00 ms Left Ventricle The left ventricle is normal size. The left ventricular systolic function is normal. The left ventricular ejection fraction is within the normal range. There is increased LV wall thickness. There is normal LV segmental wall motion. The left ventricular diastolic function is normal. LVEF is 55%. Right Ventricle The right ventricle is mildly dilated. The right ventricular systolic function is normal. Atria The left atrium size is normal. The right atrium size is normal. There is no Doppler evidence of interatrial shunt. Aortic Valve The aortic valve opens well. There is no aortic valvular stenosis. No aortic regurgitation is present. Mitral Valve The mitral valve is normal in structure. No evidence of mitral valve stenosis. There is no mitral valve regurgitation noted. Tricuspid Valve The tricuspid valve leaflets are thin and pliable. Trace tricuspid regurgitation. There is insufficient TR jet to estimate RVSP. Pulmonic Valve The pulmonary valve is normal in structure. Trace pulmonic regurgitation. Great Vessels The aortic root is normal in size. The ascending aorta is normal in size. IVC is normal in size and collapses >50% with inspiration. Pericardium There is no pericardial effusion. Other Information Study Quality: Technically Difficult Conclusion Technically difficult study due to poor acoustic windows. Normal biventricular systolic function. Mildly dilated RV. Electronically signed by : Liat Donohue MD 04/14/2023 10:23:17
== END ==
PROVIDERS: PCP Emergency Medicine; Visit Provider Physician Assistant
DX: E66.9 Obesity, unspecified (principal); E78.5 Hyperlipidemia, unspecified; I10 Essential (primary) hypertension; N28.9 Disorder of kidney and ureter, unspecified; R05.9 Cough, unspecified; R06.09 Other forms of dyspnea; Z68.41 Body mass index [BMI] 40.0-44.9, adult
CPT/HCPCS: 93306

== ENCOUNTER → 2023-05-20 08:14 | Outpatient (CLI) | payer MEDICARE, MEDICAID, SELFPAY ==
--- NOTE | 2023-05-20 08:15 | MM_ITS ---
PROCEDURE INFORMATION: Exam: MG Bilateral Screening 3D Mammography Exam date and time: 05/20/2023 8:16 AM Age: 58 years old Clinical indication: Screening mammogram TECHNIQUE: Imaging protocol: Bilateral Screening tomosynthesis and 2D mammography including computer-aided detection (CAD) when performed. COMPARISON: 1. MG MM DIG SCREENING MAMM BI W/CAD 04/02/2022 8:00 AM 2. MG MM DIG SCREENING MAMM BI W/CAD 03/20/2021 1:00 PM 3. MG MM DIG SCREENING MAMM BI W/CAD 02/17/2020 10:54 AM 4. MG MM DIG SCREENING MAMM BI W/CAD 02/09/2019 10:35 AM FINDINGS: MAMMOGRAPHY: Breast composition: The breast is heterogeneously dense, which may obscure small masses. Mass: None. Architectural distortion: No new or suspicious architectural distortion. Calcifications: No new or suspicious calcifications are present Asymmetric density: No new or suspicious asymmetric density is present Skin thickening: None. Axillary adenopathy: None. IMPRESSION: No mammographic evidence of malignancy. Recommend annual screening mammography unless otherwise clinically indicated. ASSESSMENT: BI-RADS category 1: Negative
== END ==
PROVIDERS: PCP Internal Medicine; Visit Provider Nurse Practitioner Obstetrics & Gynecology
DX: Z12.31 Encounter for screening mammogram for malignant neoplasm of breast (principal)
CPT/HCPCS: 77063; 77067

== ENCOUNTER 2023-07-10 11:27 | Outpatient (CLI) | payer MEDICARE, MEDICAID, SELFPAY ==
[2023-07-10 12:37] LABS: Hemoglobin A1C 6.5 % (4.0-6.0)
[2023-07-10 12:52] LABS: 25-OH Vitamin D, Total 22.2 ng/mL (30-100)
[2023-07-10 13:24] LABS: Chol/HDL Ratio 4.2 (1-3.5); Cholesterol 118 mg/dl (140-200); HDL Cholesterol 28 mg/dl (40-60); Triglycerides 162 mg/dl (30-150); VLDL Cholesterol 32 mg/dL (0-40)
[2023-07-10 13:41] LABS: Direct LDL Cholesterol 67.99 mg/dL (100-129)
== END 2023-07-10 23:59 ==
LOC: LAB.DROPOF 11:28
PROVIDERS: PCP Internal Medicine; Visit Provider Internal Medicine
DX: E11.9 Type 2 diabetes mellitus without complications (principal); E55.9 Vitamin D deficiency, unspecified; E78.5 Hyperlipidemia, unspecified; Z68.38 Body mass index [BMI] 38.0-38.9, adult; Z79.4 Long term (current) use of insulin; Z79.85 Long-term (current) use of injectable non-insulin antidiabetic drugs; Z79.899 Other long term (current) drug therapy
CPT/HCPCS: 80061; 82306; 83036

== ENCOUNTER 2023-08-06 13:54 | Outpatient (CLI) | payer MEDICARE, MEDICAID, SELFPAY ==
[2023-08-06 14:09] LABS: Microscopic, Urine URINE MICROSCOPIC (MICROSCOPIC)
[2023-08-06 14:47] LABS: Appearance,Urine CLEAR (Clear); Bilirubin,Urine Negative (Negative); Blood, Urine Negative (Negative); Color,Urine YELLOW (Yellow); Glucose,Urine (UA) 3+ (Negative); Hematocrit 45.3 % (37.0-47.0); Ketones,Urine Negative (Negative); Leukocyte Esterase,Urine Negative (Negative); Mean Corpuscular Hemoglobin 30.9 pg (27.0-31.2); Mean Corpuscular Volume 93.7 fl (81-99); Nitrate,Urine Negative (Negative); Platelet Count 286 K/mm3 (142-424); Protein,Urine Negative (Negative); Red Blood Count 4.84 M/mm3 (4.20-5.40); Red Cell Distribution Width 13.6 % (11.5-17.5); Specific Gravity, Urine 1.015 (1.005-1.030); Urobilinogen,Urine 0.2 EU/dl (0.2); White Blood Count 8.4 K/mm3 (4.8-10.8)
[2023-08-06 15:10] LABS: Bacteria,Urine Trace /lpf
[2023-08-06 15:39] LABS: Albumin Level 4.6 g/dl (3.5-5.0); Anion Gap 14.9 mEq/L (5-15); Blood Urea Nitrogen 19 mg/dl (7-17); Calcium 10.1 mg/dl (8.4-10.2); Carbon Dioxide 26 mmol/L (22.0-30.0); Chloride 101 mmol/L (98-107); Estimated Glomerular Filt Rate 39 ml/min (>60); GFR (African American) 47 ML/MIN (>60); Glucose 178 mg/dl (74-100); Phosphorous 4.7 mg/dl (2.5-4.5); Potassium 3.9 mmoL/L (3.5-5.1); Sodium 138 mmol/L (136-145)
[2023-08-06 15:51] LABS: Intact Parathyroid Hormone 53.8 pg/mL (7.5-53.5)
[2023-08-07 10:33] LABS: Creatinine,Urine Random 140 mg/dL (Not Estab.)
== END 2023-08-06 23:59 ==
LOC: LAB 13:57
PROVIDERS: PCP Internal Medicine; Visit Provider Internal Medicine Nephrology
DX: R80.9 Proteinuria, unspecified; E55.9 Vitamin D deficiency, unspecified; Z79.899 Other long term (current) drug therapy
CPT/HCPCS: 36415; 80069; 81001; 82306; 82570; 83970; 84155; 85014; 85018; 85048; 85049

== ENCOUNTER 2023-08-11 16:03 | Outpatient (POV) | payer MEDICARE, MEDICAID, SELFPAY | END 2023-08-11 23:59 | disposition home or self-care (01) | LOC: SC 16:03 | PROVIDERS: Visit Provider Internal Medicine Nephrology | DX: Z00.00 Encounter for general adult medical examination without abnormal findings (principal) ==

== ENCOUNTER 2023-10-15 08:15 | Outpatient (CLI) | payer MEDICARE, MEDICAID, SELFPAY ==
[2023-10-15 09:19] LABS: Alanine Aminotransferase 28 U/L (12-78); Albumin Level 4.5 g/dl (3.5-5.0); Albumin/Globulin Ratio 1.6 (1.1-1.8); Alkaline Phosphatase 104 U/L (38-126); Anion Gap 16.8 mEq/L (5-15); Aspartate Amino Transferase 33 U/L (14-36); Bilirubin,Total 0.8 mg/dl (0.2-1.3); Blood Urea Nitrogen 10 mg/dl (7-17); Calcium 10.1 mg/dl (8.4-10.2); Carbon Dioxide 28 mmol/L (22.0-30.0); Chloride 100 mmol/L (98-107); Chol/HDL Ratio 3.1 (1-3.5); Cholesterol 153 mg/dl (140-200); Estimated Glomerular Filt Rate 57 ml/min (>60); GFR (African American) 69 ML/MIN (>60); Globulin 2.9 g/dL (1.3-3.2); Glucose 161 mg/dl (74-100); HDL Cholesterol 50 mg/dl (40-60); Potassium 3.8 mmoL/L (3.5-5.1); Sodium 141 mmol/L (136-145); Total Protein,Serum 7.4 g/dl (6.3-8.2); Triglycerides 192 mg/dl (30-150); VLDL Cholesterol 38 mg/dL (0-40)
[2023-10-15 09:30] LABS: Direct LDL Cholesterol 82.09 mg/dL (100-129)
[2023-10-15 10:20] LABS: Hemoglobin A1C 6.3 % (4.0-6.0)
== END 2023-10-15 23:59 | disposition home or self-care (01) ==
LOC: LAB 08:16
PROVIDERS: PCP Internal Medicine; Visit Provider Internal Medicine
DX: R73.09 Other abnormal glucose (principal); R53.83 Other fatigue; E78.5 Hyperlipidemia, unspecified
CPT/HCPCS: 36415; 80053; 80061; 83036

== ENCOUNTER 2023-11-06 08:32 | Outpatient (POV) | payer MEDICARE, MEDICAID, SELFPAY ==
--- NOTE | 2023-11-06 08:53 | EXP.PAIN.SOA ---
[facility] Pain Management SOAP Note Subjective:: Patient is a pleasant 58-year-old female who presents today for 1 year follow-up. Today she rates her pain a 5 out of 10. Patient denies any new trauma or injury. She does state overall she is still doing well and maintaining and that occasionally she will have a flareup of her fibromyalgia but it is tolerable. Patient is currently managed with gabapentin, tramadol and methylphenidate from Dr. Coleman's office. She denies any side effects from this medication. Her Agustín has been reviewed and is appropriate. Review of Systems: General: No recent weight changes, no fever, no sleep disturbances Respiratory: No cough, no shortness of air, no recurring pulmonary infections Cardiovascular/peripheral vascular: No chest pain, no palpitations, no edema, no shortness of breath Gastrointestinal: No new onset incontinence, normal bowel movements reported Genitourinary: No new onset incontinence Musculoskeletal: Low back pain Psychiatric: [Normal mood/affect] Neurological: [Denies weakness in extremities], [denies balance issues] Objective:: Physical Exam: General: Alert and oriented x3, no acute distress, pleasant and cooperative Lungs: Respirations even and unlabored, symmetrical chest expansion Eyes: PERRL Musculoskeletal: Flexion and extension of lumbar [spine] somewhat guarded secondary to pain, [antalgic gait noted] Neurological: Speech clear, no gross sensory deficit Assessment:: Low back pain, right-sided sacroiliitis Plan:: Patient continues to do well and does not require any interventions at this time. I have counseled the patient that we will give her another 1 year follow-up and that do not hesitate if she needs anything between now and that next visit. Patient acknowledges understanding and agrees with plan of care. Patient has been instructed to contact the clinic with any concerns before the next appointment. Dr. James has reviewed this note and agrees with this plan of care. This note was dictated using voice recognition software and make contain errors or omissions. [facility] Disclaimer: The information contained in this section may have been updated after the patient was seen, as this information can be updated by other users. Medical History Complex sleep apnea syndrome Her gabapentin and tramadol may be contributing to some of the problems she is having with sleep apnea. Will see how neurology wants to proceed. Generalized anxiety disorder Major depressive disorder Patient is on both duloxetine and fluoxetine. Jovanna Mike is following and has been prescribing these medications. Normal colonoscopy HTN (hypertension) Obesity Diabetes Surgical History Carpal tunnel syndrome, right Hx of breast reduction, elective Family History Other Cancer Coronary artery disease Diabetes Heart attack Hypertension Social History Smoking Status: Never smoker second hand exposure: No alcohol intake: never counseling provided: none substance use type: denies use current occupational status: unemployed Travel in the last 8 weeks: None household members: other housing: house number of children: 1 current occupational exposures/hazards: No caffeine: Yes
[2023-11-06 09:13] VITALS: BP 111/71; PULSE 100; RESP 18; O2SAT 97; BMI 36.9
== END 2023-11-06 23:59 | disposition home or self-care (01) ==
LOC: SC.PAIN 08:33
PROVIDERS: PCP Internal Medicine; Visit Provider Nurse Practitioner Family
DX: M54.50 Low back pain, unspecified (principal); M46.1 Sacroiliitis, not elsewhere classified
CPT/HCPCS: 99212; G0463

== ENCOUNTER 2024-01-06 13:50 | Outpatient (CLI) | payer MEDICARE, MEDICAID, SELFPAY ==
[2024-01-06 18:00] LABS: Basophils % 0.2 % (0.1-2.0); Eosinophils % 0.1 % (0.1-12.0); Hemoglobin 13.8 g/dL (12.2-16.2); Lymphocytes # 0.9 K/mm3 (0.7-4.5); Lymphocytes % 12.7 % (10-50); Mean Corpuscular HGB Conc 33.7 g/dL (31.8-35.4); Mean Corpuscular Hemoglobin 30.8 pg (27.0-31.2); Mean Corpuscular Volume 91.4 fl (81-99); Mean Platelet Volume 11.1 fl (7.4-10.4); Monocytes # 0.4 K/mm3 (0.1-1.0); Monocytes % 6.3 % (1.7-9.3); Neutrophils # 5.6 K/mm3 (1.8-7.8); Neutrophils % 80.6 % (37.0-80.0); Platelet Count 231 K/mm3 (142-424); Red Blood Count 4.49 M/mm3 (4.20-5.40); Red Cell Distribution Width 14.1 % (11.5-17.5)
[2024-01-06 19:11] LABS: Thyroid Stimulating Hormone 1.11 uIU/mL (0.465-4.68)
[2024-01-06 19:46] LABS: Folate > 20.00 ng/mL; Vitamin B12 817 pg/mL (239-931)
[2024-01-06 20:01] LABS: Hemoglobin A1C 7.1 % (4.0-6.0)
== END 2024-01-06 23:59 | disposition home or self-care (01) ==
LOC: LAB.DROPOF 01-07 13:50
PROVIDERS: PCP Internal Medicine; Visit Provider Internal Medicine
DX: K52.9 Noninfective gastroenteritis and colitis, unspecified (principal); E03.9 Hypothyroidism, unspecified; E11.9 Type 2 diabetes mellitus without complications; E66.9 Obesity, unspecified; Z68.35 Body mass index [BMI] 35.0-35.9, adult; Z79.4 Long term (current) use of insulin; Z79.84 Long term (current) use of oral hypoglycemic drugs
CPT/HCPCS: 82607; 82746; 83036; 84443; 85025

== ENCOUNTER → 2024-03-03 20:23 | Outpatient (CLI) | payer MEDICARE, MEDICAID, SELFPAY | LOC: SL 20:25 | PROVIDERS: PCP Family Medicine; Visit Provider Specialist | DX: G47.31 Primary central sleep apnea (principal); G47.419 Narcolepsy without cataplexy; Z68.35 Body mass index [BMI] 35.0-35.9, adult; I10 Essential (primary) hypertension | CPT/HCPCS: 95811 ==

== ENCOUNTER 2024-03-29 11:25 | Outpatient (CLI) | payer MEDICARE, MEDICAID, SELFPAY ==
[2024-03-29 11:34] LABS: Microscopic, Urine URINE MICROSCOPIC (MICROSCOPIC)
[2024-03-29 12:09] LABS: Hematocrit 42.2 % (37.0-47.0); Hemoglobin 14.7 g/dL (12.2-16.2); Mean Corpuscular HGB Conc 34.7 g/dL (31.8-35.4); Mean Corpuscular Volume 89.1 fl (81-99); Platelet Count 274 K/mm3 (142-424); Red Blood Count 4.74 M/mm3 (4.20-5.40); Red Cell Distribution Width 13.4 % (11.5-17.5); White Blood Count 8.6 K/mm3 (4.8-10.8)
[2024-03-29 12:30] LABS: Albumin Level 4.8 g/dl (3.5-5.0); Chloride 99 mmol/L (98-107); Sodium 137 mmol/L (136-145)
[2024-03-29 12:31] LABS: Potassium 3.9 mmoL/L (3.5-5.1)
[2024-03-29 12:34] LABS: Anion Gap 16.9 mEq/L (5-15); Blood Urea Nitrogen 17 mg/dl (7-17); Calcium 9.7 mg/dl (8.4-10.2); Carbon Dioxide 25 mmol/L (22.0-30.0); Estimated Glomerular Filt Rate 46 ml/min (>60); GFR (African American) 56 ML/MIN (>60); Glucose 142 mg/dl (74-100)
[2024-03-29 12:36] LABS: Appearance,Urine CLEAR (Clear); Bilirubin,Urine Negative (Negative); Blood, Urine Negative (Negative); Color,Urine YELLOW (Yellow); Glucose,Urine (UA) Negative (Negative); Ketones,Urine Negative (Negative); Leukocyte Esterase,Urine 2+ (Negative); Nitrate,Urine Negative (Negative); Protein,Urine Negative (Negative); Urobilinogen,Urine 0.2 EU/dl (0.2)
[2024-03-29 12:41] LABS: Creatinine,Urine Random 199 mg/dL (Not Estab.)
[2024-03-29 13:15] LABS: Bacteria,Urine 1+ /lpf; Squamous Epithelial Cell,Urine 20-50 #/hpf (0-5)
== END 2024-03-29 23:59 | disposition home or self-care (01) ==
LOC: LAB 11:27
PROVIDERS: PCP Family Medicine; Visit Provider Internal Medicine Nephrology
DX: N18.31 Chronic kidney disease, stage 3a (principal)
CPT/HCPCS: 36415; 80069; 81001; 82570; 84156; 85027; 87086

== ENCOUNTER 2024-04-22 06:33 | Day surgery (SDC) | payer MEDICARE, MEDICAID, SELFPAY ==
[2024-04-20 14:06] VITALS: BMI 34.8
[2024-04-22 07:04] VITALS: BP 107/64; PULSE 79; RESP 18; TEMP 36.7; O2SAT 97
--- NOTE | 2024-04-22 07:09 | P.PNANES_ITS ---
[facility] Disclaimer: The information contained in this section may have been updated after the patient was seen, as this information can be updated by other users. Medical History Abscess Complex sleep apnea syndrome Generalized anxiety disorder Major depressive disorder Normal colonoscopy HTN (hypertension) Obesity Diabetes Surgical History History of bilateral breast reduction surgery History of carpal tunnel release Family History Other Cancer Coronary artery disease Diabetes Heart attack Hypertension Social History Smoking Status: Never smoker second hand exposure: No alcohol intake: never counseling provided: none substance use type: denies use current occupational status: disabled Travel in the last 8 weeks: None household members: other housing: house number of children: 1 current occupational exposures/hazards: No caffeine: Yes [facility] Anesthesia Checklist Patient Identification Patient Identification: Arm Band and Verbal (Name & ) Structural Data Admitted From: Home Planned Operative Procedure/s: Cone biopsy Consent for Planned Operative Procedure(s) Verified: Yes Verified Documents: Surgical Consent and History and Physical NPO Status Verified Time NPO: 00:00 Additional verifications Anesthesia Reactions: Yes (PONV) Airway Assessment Mallampati Score:: Class III C-Spine Mobility Assessed: Yes TMJ Mobility Assessed: Yes Dentition: Good Dentition Neurological Assessment Level of Consciousness: Awake Hx Seizures: No Numbness or tingling in extremities: No Anesthesia Plan Anesthesia Risk discussed: Yes Anesthesia Plan: Verified ASA Class: III Anesthesia Type: General
[2024-04-22 07:12] LABS: POC Glucose,Bedside 148 (70-110)
[2024-04-22] MEDS: LIDOCAINE 1% W/EPI 1:100,000 20ML VIAL 20 ML (08:06)
[2024-04-22 08:25] VITALS: BP 127/88; PULSE 106; RESP 16; TEMP 36.8; O2SAT 94
[2024-04-22 08:40] VITALS: BP 132/75; PULSE 101; RESP 16; O2SAT 95
--- NOTE | 2024-04-22 08:47 | EXP.OP.NOTE ---
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 As result of that she was offered cone biopsy. She has had abnormal Paps over the last couple of years with ASCUS positive HPV. Operative findings:: She had an anteverted uterus that was anteflexed. IUD strings were in the correct position. Operative note:: She was taken the operating room where MAC anesthesia was found be adequate. She was prepped and draped in normal sterile fashion lithotomy position. A weighted speculum is placed in the vagina and the anterior lip of the cervix was grasped with a tenaculum. Lugol solution was then applied to the cervix. I then injected 10 cc of 1% Xylocaine circumferentially about the cervix. Using an 11 blade I then made a made an incision circumferentially around the cervix. Using the knife I was able to cut the base of the cone off of the cervix. I was careful not to cut the Mirena strings. I then used cautery around the exocervix. Monsel solution was then placed within the cervical canal. Hemostasis was assured. She is taken the recovery room in excellent condition. All sponge, instrument counts were correct. Estimated blood loss was approximately 10 cc. Condition: stable Disposition: PACU Specimens:: Cone biopsy Complications:: None
[2024-04-22 08:55] VITALS: BP 129/75; PULSE 92; RESP 18; O2SAT 98
[2024-04-22 09:09] VITALS: BP 123/67; PULSE 87; RESP 18; TEMP 36.8; O2SAT 97
== END 2024-04-22 09:09 | disposition home or self-care (01) ==
PROVIDERS: PCP Family Medicine; Visit Provider Nurse Practitioner Obstetrics & Gynecology
PROC: 0UBC7ZZ Excision of Cervix, Via Natural or Artificial Opening (ICD-10-PCS; CPT 57520; principal; 2024-04-22 08:30)
DX: R87.613 High grade squamous intraepithelial lesion on cytologic smear of cervix (HGSIL) (principal); E11.8 Type 2 diabetes mellitus with unspecified complications; Z79.4 Long term (current) use of insulin
CPT/HCPCS: 57520; 82962; 88307; 88342; J1100; J2250; J2405; J3010

== ENCOUNTER 2024-04-26 18:20 | Outpatient (CLI) | payer MEDICARE, MEDICAID, SELFPAY ==
[2024-04-26 18:45] LABS: Basophils % 0.3 % (0.1-2.0); Eosinophils % 0.1 % (0.1-12.0); Hemoglobin 13.9 g/dL (12.2-16.2); Lymphocytes # 1.1 K/mm3 (0.7-4.5); Lymphocytes % 9.9 % (10-50); Mean Corpuscular HGB Conc 34.8 g/dL (31.8-35.4); Mean Corpuscular Hemoglobin 31.6 pg (27.0-31.2); Mean Corpuscular Volume 90.6 fl (81-99); Mean Platelet Volume 10.6 fl (7.4-10.4); Monocytes # 0.5 K/mm3 (0.1-1.0); Monocytes % 4.6 % (1.7-9.3); Neutrophils # 9.8 K/mm3 (1.8-7.8); Neutrophils % 85.1 % (37.0-80.0); Platelet Count 261 K/mm3 (142-424); Red Blood Count 4.41 M/mm3 (4.20-5.40); Red Cell Distribution Width 13.3 % (11.5-17.5); White Blood Count 11.5 K/mm3 (4.8-10.8)
[2024-04-26 18:49] LABS: MANUAL DIFFERENTIAL MANUAL DIFFERENTIAL (MANUAL DIFF)
[2024-04-26 19:01] LABS: Alanine Aminotransferase 24 U/L (12-78); Albumin Level 4.1 g/dl (3.5-5.0); Albumin/Globulin Ratio 1.5 (1.1-1.8); Alkaline Phosphatase 122 U/L (38-126); Anion Gap 14.7 mEq/L (5-15); Aspartate Amino Transferase 28 U/L (14-36); Bilirubin,Total 0.6 mg/dl (0.2-1.3); Blood Urea Nitrogen 14 mg/dl (7-17); Carbon Dioxide 26 mmol/L (22.0-30.0); Chloride 102 mmol/L (98-107); Estimated Glomerular Filt Rate 57 ml/min (>60); GFR (African American) 69 ML/MIN (>60); Globulin 2.7 g/dL (1.3-3.2); Glucose 181 mg/dl (74-100); Potassium 3.7 mmoL/L (3.5-5.1); Sodium 139 mmol/L (136-145); Total Protein,Serum 6.8 g/dl (6.3-8.2)
[2024-04-26 19:27] LABS: HIV (1&2) Antibody Rapid NONREACTIVE (NONREACTIVE)
[2024-04-26 20:11] LABS: Hemoglobin A1C 6.3 % (4.0-6.0)
[2024-04-26 22:22] LABS: Lymphocytes % 8 % (10-50); Monocytes % 1 % (2-9); Neutrophils % 91 % (42-76); Platelet Estimate Normal; RBC Morphology Normal; Total Cells Counted 100
[2024-04-28 08:22] LABS: HCV Ab Non Reactive (Non Reactive)
== END 2024-04-26 23:59 | disposition home or self-care (01) ==
LOC: LAB 18:21
PROVIDERS: Family Medicine; Visit Provider Nurse Practitioner Obstetrics & Gynecology
DX: Z11.59 Encounter for screening for other viral diseases (principal); E11.9 Type 2 diabetes mellitus without complications; N28.9 Disorder of kidney and ureter, unspecified; Z00.00 Encounter for general adult medical examination without abnormal findings
CPT/HCPCS: 80053; 83036; 85007; 85025; 85027; 86803; 87389

== ENCOUNTER 2024-06-03 08:23 | Outpatient (CLI) | payer MEDICARE, SELFPAY ==
--- NOTE | 2024-06-03 08:24 | MM_ITS ---
PROCEDURE INFORMATION: Exam: MG Bilateral Screening 3D Mammography Exam date and time: 06/03/2024 8:12 AM Age: 59 years old Clinical indication: Screening examination. TECHNIQUE: Imaging protocol: Bilateral Screening tomosynthesis and 2D mammography including computer-aided detection (CAD) when performed. COMPARISON: 1. MG MM DIG SCREENING MAMM BI W/CAD 05/20/2023 8:16 AM 2. MG MM DIG SCREENING MAMM BI W/CAD 04/02/2022 8:00 AM FINDINGS: MAMMOGRAPHY: Breast composition: There are scattered areas of fibroglandular density. Mass: None. Architectural distortion: None. Calcifications: No suspicious calcifications. Asymmetric density: None. Skin thickening: None. Axillary adenopathy: None. IMPRESSION: No mammographic evidence of malignancy. Annual screening is recommended unless otherwise clinically indicated. ASSESSMENT: BI-RADS Category 1: Negative.
== END 2024-06-03 23:59 | disposition home or self-care (01) ==
LOC: RAD 08:24
PROVIDERS: PCP Family Medicine; Visit Provider Nurse Practitioner Obstetrics & Gynecology
DX: Z12.31 Encounter for screening mammogram for malignant neoplasm of breast (principal)
CPT/HCPCS: 77063; 77067

== ENCOUNTER 2024-07-28 22:13 | Outpatient (CLI) | payer MEDICARE, MEDICAID, SELFPAY ==
[2024-07-28 23:34] LABS: Hemoglobin A1C 6.4 % (4.0-6.0)
[2024-07-29 11:46] LABS: Alanine Aminotransferase 35 U/L (12-78); Albumin Level 4.5 g/dl (3.5-5.0); Albumin/Globulin Ratio 1.8 (1.1-1.8); Alkaline Phosphatase 120 U/L (38-126); Anion Gap 8.9 mEq/L (5-15); Aspartate Amino Transferase 35 U/L (14-36); Bilirubin,Total 0.5 mg/dl (0.2-1.3); Blood Urea Nitrogen 18 mg/dl (7-17); Calcium 10.2 mg/dl (8.4-10.2); Carbon Dioxide 30 mmol/L (22.0-30.0); Chloride 103 mmol/L (98-107); Chol/HDL Ratio 3.4 (1-3.5); Cholesterol 122 mg/dl (140-200); Estimated Glomerular Filt Rate 51 ml/min (>60); GFR (African American) 62 ML/MIN (>60); Globulin 2.5 g/dL (1.3-3.2); Glucose 159 mg/dl (74-100); HDL Cholesterol 36 mg/dl (40-60); Potassium 4.9 mmoL/L (3.5-5.1); Sodium 137 mmol/L (136-145); Triglycerides 107 mg/dl (30-150); VLDL Cholesterol 21 mg/dL (0-40)
[2024-07-29 13:59] LABS: Microalbumin/Creatinine Ratio 8.3
[2024-07-29 14:09] LABS: Creatinine,Urine Random 233 mg/dL (Not Estab.)
== END 2024-07-28 23:59 | disposition home or self-care (01) ==
PROVIDERS: PCP Family Medicine; Visit Provider Family Medicine
DX: E11.22 Type 2 diabetes mellitus with diabetic chronic kidney disease (principal); I12.9 Hypertensive chronic kidney disease with stage 1 through stage 4 chronic kidney disease, or unspecified chronic kidney disease; N18.30 Chronic kidney disease, stage 3 unspecified; Z79.4 Long term (current) use of insulin; I95.9 Hypotension, unspecified
CPT/HCPCS: 80053; 80061; 82043; 82570; 83036

== ENCOUNTER 2024-11-09 09:24 | Outpatient (CLI) | payer MEDICARE, MEDICAID, SELFPAY ==
--- OUTSIDE RECORDS SUMMARY | 2024-11-09 09:29 | XMS_ITS | Encounter Summary ---
Author Organization [facility] Address [address] [place] [address] Care Team Providers Care Municipal [address] Judge Name Role Phone Tien Wade MD Primary Care Provider [phone] Encounter Details Date Type Department Care Team (Late st Contact Info) Description 05/10/2021 Community [facility] [address] [place] [phone] Tien Wade MD [address] [place] [address] Bulging lumbar disc (Primary Dx) Social History Tobacco Use Types Packs/Day Years Used Date Smoking Tobacco: Never Alcohol Use Standard Drinks/Week Comments No 0 (1 standard drink = 0.6 oz pur e alcohol) Comments Unknown Sex and Gender Information Value Date Recorded Sex Assigned at Not on file Legal Sex Female 8:37 PM EDT Gender Identity Not on file Sexual Orientation Not on file documented as of this encounter Plan of Treatment Upcoming Encounters Date Type Department Care Team (Late st Contact Info) Description 04/08/2025 9:20 AM EST Office Visit [facility] [address] [place] [id number] Dawood Ahn MD [address] [place] [phone] documented as of this encounter Visit Diagnoses Diagnosis Bulging lumbar disc- Primary documented in this encounter Care Teams [address] Judge Relationship Specialty Start Date End Date Tien Wade MD [address] [place] [address] PCP - General 10/13/20 documented as of this encounter
--- OUTSIDE RECORDS SUMMARY | 2024-11-09 09:29 | XMS_ITS | Clinical Summary ---
Author Organization [facility] Address [address] [place] [address] Care Team Providers Care Volunteer Services Assistant Name Role Phone Tien Wade MD Primary Care Provider [phone] Allergies Active Allergy Reactions Criticality Noted Date Comments Milnacipran Other - please docum ent in the comment field High 06/08/2021 Nausea/vomiting Modafinil Rash Low 03/29/2014 Pregabalin Headache High 06/08/2021 nausea Medications atorvastatin (Lipitor) 40 MG tablet 1 (one) time each day. 4 Active gabapentin (Neurontin) 600 MG tablet Take 0.5 tablets (300 mg) by mouth 1 (one) time each day. 6 Active levothyroxine (Synthroid, Levoxyl) 100 MCG tablet 1 (one) time each day. 4 Active traMADol (Ultram) 50 MG tablet TAKE ONE TABLET BY MOUTH THREE TIMES DAILY NEEDED 5 Active aspirin 81 MG EC tablet Take 1 tablet (81 mg) by mouth 1 (one) time each day. Active cholecalciferol (Vitamin D-3) 25 MCG (1000 UT) capsule Take 1 capsule (1,000 Units) by mouth 1 (one) time each day. Active DULoxetine (Cymbalta) [address] capsule Take 1 capsule (60 mg) by mouth 1 (one) time each day. Do not crush or chew. Active FLUoxetine (PROzac) 40 MG capsule Take 60 mg by mouth 1 (one) time each day. Active levonorgestrel (Mirena) 20 MCG/24HR IUD 1 each by Intrauterine route 1 (one) time. Active LINACLOTIDE PO Take 72 mcg by mouth. Active lisinopril-hydr oCHLOROthiazide 20-12.5 MG tablet Take 1 tablet by mouth 1 (one) time each day. Active metoclopramide (Reglan) 10 MG tablet Take 1 tablet (10 mg) by mouth 4 (four) times a day. Active Multiple Vitamin (multivitamin) capsule Take 1 capsule by mouth 1 (one) time each day. Active pantoprazole (Protonix) 40 MG EC tablet Take by mouth 1 (one) time each day. Active traZODone (Desyrel) 100 MG tablet Take 1 tablet (100 mg) by mouth every night. Active methylphenidate (Ritalin) 20 MG tablet 2 Active Continuous Blood Gluc Transmit (Dexcom G6 transmitter) misc USE DIRECTED TO TEST BLOOD GLUCOSE LEVEL (CHANGE TRANSMITTER EVERY 90 DAYS) 2 Active Continuous Blood Gluc Sensor (Dexcom G6 Sensor) misc USE DIRECTED TO TEST BLOOD GLUCOSE LEVEL CHANGE SENSOR EVERY 10 DAYS 2 Active Continuous Blood Gluc Salvage Mend Worker (Dexcom G6 corporate tax preparer) device USE DIRECTED TO TEST BLOOD GLUCOSE LEVEL 2 Active clobetasol (Temovate) 0.05 % external solution APPLY TOPICALLY TO THE AFFECTED AREA(S) TWICE DAILY 4 Active Jardiance 25 MG Take 1 tablet (25 mg) by mouth 1 (one) time each day. 4 Active Lantus SoloStar 100 UNIT/ML injection pen Inject 65 Units under the skin 1 (one) time each day. Active ketoconazole (NIZOral) 2 % shampoo APPLY TOPICALLY TO THE AFFECTED AREA(S) three times WEEKLY 4 Active tirzepatide (Mounjaro) 10 MG/0.5ML solution pen-injector solution pen-injector Inject 0.5 mL (10 mg) under the skin every 7 (seven) days. 3 Active Vitamin D3 125 MCG (5000 UT) capsule Take 1 capsule (5,000 Units) by mouth 1 (one) time each day. 4 Active bisoprolol (Zebeta) 5 MG tablet Take 1 tablet (5 mg) by mouth 1 (one) time each day. Active cariprazine (Vraylar) 1.5 MG capsule Take 1 capsule (1.5 mg) by mouth 1 (one) time each day. Active Active Problems Problem Noted Date Diagnosed Date Severe obesity (BMI 35.0-39.9) with comorbidity 04/02/2024 Chronic kidney disease-mineral and bone disorder (CKD-MBD) 04/02/2024 Mixed hyperlipidemia 04/02/2024 Type 2 diabetes mellitus wit h stage 3 chronic kidney disease, without long-term current use of insulin 04/02/2024 Hypertensive chronic kidney disease with stage 1 through stage 4 chronic kidney disease, or unspecified chronic kidney disease 04/02/2024 Anemia in stage 3a chronic kidney disease 2023 Microalbuminuria 06/11/2021 CKD (chronic kidney disease) stage 2, GFR 60-89 ml/min 06/11/2021 Essential hypertension 06/11/2021 Arthritis, degenerative 04/20/2014 Fibromyalgia 03/29/2014 Depression 03/29/2014 Immunizations Immunization Administration Dates Next Due DTaP, Unspecified 08/31/2009 Hep A, Adult 06/09/2018 Influenza, injectable, quadrivalent 02/17/2018,1 ,03/23/2015 Influenza, injectable, quadr ivalent, preservative free 03/12/2022,04/10/2021,03/03/2020 Influenza, seasonal, injectable 02/21/2014 Pneumococcal Polysaccharide PPV23 04/11/2016 Tdap 12/10/2019 Zoster, live 12/08/2018 Family History Medical History Relation Name Comments Heart disease Father Kidney disease Father's Brother Kidney disease Father's Sister Relation Name Status Comments Father Father's Brother Father's Sister Mother Social History Tobacco Use Types Packs/Day Years Used Date Smoking Tobacco: Never Smokeless Tobacco: Never Alcohol Use Standard Drinks/Week Comments No 0 (1 standard drink = 0.6 oz pur e alcohol) Comments No Sex and Gender Information Value Date Recorded Sex Assigned at Not on file Legal Sex Female 8:37 PM EDT Gender Identity Not on file Sexual Orientation Not on file Last Filed Vital Signs Vital Sign Reading Time Taken Comments Blood Pressure 130/78 04/02/2024 12:37 PM EDT Pulse 73 04/02/2024 12:37 PM EDT Temperature 36.7 C (98 F) 04/02/2024 12:37 PM EDT Respiratory Rate 16 04/02/2024 12:37 PM EDT Oxygen Saturation 97% 04/02/2024 12:37 PM EDT Inhaled Oxygen Concentration - - Weight 101 kg (223 lb) 04/02/2024 12:37 PM EDT Height 167.6 cm (5' 6 ) 04/02/2024 12:37 PM EDT Body Mass Index 35.99 04/02/2024 12:37 PM EDT Plan of Treatment Upcoming Encounters Date Type Department Care Team (Late st Contact Info) Description 04/08/2025 9:20 AM EST Office Visit [facility] [address] [place] [address] Dawood Ahn MD [address] [place] [phone] Health Maintenance Due Date Last Done Comments [facility]-Depression Screening 1966 [facility]-Diabetes: Hemoglobin A1C 1966 [facility]-HIV Screening 1966 [facility]-Medicare Annual Wellness (AWV) 1966 [facility]-Infant/Child/Adol SDOH Screenings 1966 Diabetes: Dental Exam 02/15/1976 [facility]- SDOH Screenings 02/15/1984 [facility]-Adult SDOH Screenings 02/15/1984 [facility]-Hepatitis B Vaccines (1 of 3 - 19+ 3-dose series) 1985 [facility]-Pap Smear 1987 [facility]-Cervical Cancer Screening 02/15/1996 [facility]-HPV/Cotest 02/15/1996 CT Colonography 2011 Colonoscopy 2011 FIT-DNA 2011 FIT 2011 FOBT 2011 Sigmoidoscopy 2011 [facility]-Colorectal Cancer Screening 2011 [facility]-Pneumococcal Vaccine: 50+ Years (2 of 2 - PCV) 04/11/2017 04/11/2016 [facility]-Zoster Vaccines (2 of 3) 02/02/2019 12/08/2018 [facility]-Breast Cancer Screening 08/22/2019 08/21/2017 [id number] Vaccine ( season) 2024 03/01/2021, 08/31/2020, 08/03/2020 [facility]-DTaP,Tdap,and Td Vaccines (3 - Td or Tdap) 12/09/2029 12/10/2019, 08/31/2009 [facility]-Hepatitis C Screening Completed 03/29/2014 [facility]-Hepatitis A Vaccines Aged Out 06/09/2018 No longer eligible based on patient's age to complete this topic [facility]-Influenza Vaccine Completed 03/17/2024 , 04/28/2023, 03/12/2022, Additional history exists [facility]-Obesity Intervention Completed 04/02/2024, 07/31 HPV Vaccines Aged Out No longer eligi ble based on patient's age to complete this topic [facility]-HIB Vaccines Aged Out No longer e ligible based on patient's age to complete this topic [facility]-IPV Vaccines Aged Out No longer e ligible based on patient's age to complete this topic [facility]-Rotavirus Vaccines Aged Out No lo nger eligible based on patient's age to complete this topic Procedures Procedure Name Priority Date/Time Associated Diagnosis Comments HEPATITIS C ANTIBODY W/REFLEX TO HCV QUANT PCR Routine 03/29/2014 12:47 PM EDT from Last 3 Months or Most Recently Relevant to Health Maintenance Results * Hepatitis C Antibody (03/29/2014 12:47 PM EDT) Hepatitis C Antibody NEGATIVE Reference Range: Negative SUNQUEST 03/29/2014 12:4 7 PM EDT 03/29/2014 1:46 PM EDT us Historical Provider LAB BLOOD ORDERABLES Marjorie jenifer Result SUNQUEST from Last 3 Months or Most Recently Relevant to Health Maintenance Insurance Care Teams Volunteer Services Assistant Relationship Specialty Start Date End Date Tien Wade MD [address] [place] [address] PCP - General 10/13/20
[2024-11-09 10:30] LABS: Free T4 (Free Thyroxine) 0.97 ng/dl (0.78-2.19)
[2024-11-09 13:26] LABS: Thyroid Stimulating Hormone 1.14 uIU/mL (0.465-4.68)
== END 2024-11-09 23:59 | disposition home or self-care (01) ==
LOC: LAB 09:25
PROVIDERS: PCP Family Medicine; Visit Provider Nurse Practitioner Family
DX: I95.9 Hypotension, unspecified (principal); I10 Essential (primary) hypertension; E03.9 Hypothyroidism, unspecified; R93.1 Abnormal findings on diagnostic imaging of heart and coronary circulation
CPT/HCPCS: 36415; 84439; 84443

== ENCOUNTER 2024-12-31 18:03 | Emergency (ER) | payer MEDICARE, MEDICAID, SELFPAY ==
--- NOTE | 2024-12-31 18:01 | ECG_ITS ---
APPROVED REPORT Exam: Resting ECG HR:78 bpm ECG Measurements Heart Rate 78 AXES AK 152 P 50 QRSd 76 QRS 59 QT 374 T 10 QTc 407 Conclusion SINUS RHYTHM LOW QRS VOLTAGE IN PRECORDIAL LEADS [QRS DEFLECTION < 1.0 mV IN CHEST LEADS] ST DEVIATION AND MODERATE T-WAVE ABNORMALITY, CONSIDER INFERIOR ISCHEMIA [-0.1+ mV T-WAVE IN II/aVF] ABNORMAL ECG UNCONFIRMED REPORT Electronically signed by : Alberto Boucher, 01/01/2025 22:51:50
[2024-12-31 18:04] VITALS: BP 148/78; PULSE 75; RESP 16; TEMP 36.8; O2SAT 100; BMI 15.8
--- OUTSIDE RECORDS SUMMARY | 2024-12-31 18:18 | XMS_ITS | Encounter Summary ---
Author Organization [facility] Address [address] [place] [address] Care Team Providers Care Speech Professor Name Role Phone Martah Nielsen APRN Primary Care Provider [phone] Encounter Details Date Type Department Care Team (Late st Contact Info) Description 09/30/2024 Results Follow-Up [facility] [address] [facility] [place] [address] [place] [phone] Melina Jernigan MD [address] [place] [phone] Social History Tobacco Use Types Packs/Day Years Used Date Smoking Tobacco: Never Passive Smoke Exposure: Never Smokeless Tobacco: Never Alcohol Use Standard Drinks/Week Comments Never 0 (1 standard drink = 0.6 oz pur e alcohol) Comments No Sex and Gender Information Value Date Recorded Sex Assigned at Not on file Legal Sex Female 10:25 AM EDT Gender Identity Not on file Sexual Orientation Not on file documented as of this encounter Plan of Treatment Upcoming Encounters Date Type Department Care Team (Late st Contact Info) Description 02/03/2025 9:30 AM EDT Office Visit [facility] [address] [place] [address] Melina Jernigan MD [facility] [phone] documented as of this encounter Visit Diagnoses Not on filedocumented in this encounter Care Teams Speech Professor Relationship Specialty Start Date End Date Martha Nielsen APRN [address] [place] [address] PCP - General Family Medicine 09/29/24 documented as of this encounter
--- OUTSIDE RECORDS SUMMARY | 2024-12-31 18:18 | XMS_ITS | Clinical Summary ---
Author Organization [facility] Address [address] [place] [address] Care Team Providers Care Cooker Casing Name Role Phone Martha Nielsen APRN Primary Care Provider [phone] Allergies Active Allergy Reactions Criticality Noted Date Comments Milnacipran Nausea And Vomiting, Other (See Comments) High 06/08/2021 Nausea/vomiting Modafinil Rash Low 03/29/2014 Pregabalin Headache,Nausea Only High 06/08/2021 nausea Medications pantoprazole (PROTONIX) 40 MG EC tablet Take 1 tablet by mouth Daily. 2 Active methylphenidate (RITALIN) 20 MG tablet Take 1 tablet by mouth Daily. 3 Active aspirin 81 MG EC tablet Take 1 tablet by mouth Daily. Active levothyroxine (SYNTHROID, LEVOTHROID) 100 MCG tablet Take 1 tablet by mouth Daily. 2 Active traZODone (DESYREL) 100 MG tablet Take 1 tablet by mouth every night at bedtime. 2 Active gabapentin (NEURONTIN) 600 MG tablet Take 0.5 tablets by mouth Daily. 2 Active DULoxetine (CYMBALTA) 60 MG capsule Take 1 capsule by mouth Daily. 3 Active FLUoxetine (PROzac) 40 MG capsule TAKE ONE CAPSULE BY MOUTH EVERY DAY FOR nerves 2 Active traMADol (ULTRAM) 50 MG tablet TAKE ONE TABLET BY MOUTH TWICE DAILY FOR pain MAY CAUSE DROWSINESS 2 Active Linzess 72 MCG capsule capsule TAKE ONE CAPSULE BY MOUTH EVERY DAY DIRECTED 2 Active Multiple Vitamin (multivitamin) capsule Take 1 capsule by mouth Daily. Active Advocate Insulin Pen [place] 31G X 8 MM [facility] See Admin Instructions. 2 Active Levonorgestrel (MIRENA) 20 MCG/DAY intrauterine device IUD To be inserted one time by prescriber. Route intrauterine. Active bisoprolol (ZEBeta) 5 MG tablet Take 1 tablet by mouth Daily. Active atorvastatin (LIPITOR) 80 MG tablet Take 1 tablet by mouth Daily. for cholesterol 4 Active vitamin D3 125 MCG (5000 UT) capsule capsule Take 1 capsule by mouth Daily. 4 Active lisinopril-hydro chlorothiazide (PRINZIDE,ZESTOR ETIC) 20-25 MG per tablet Take 1 tablet by mouth Daily. 4 Active FLUoxetine (PROzac) 20 MG capsule Take 1 capsule by mouth Daily. Active Tirzepatide 12.5 MG/0.5ML solution auto-injector Inject 0.5 mL under the skin into the appropriate area as directed 1 (One) Time Per Week. 6 mL 1 5 Active Insulin Glargine (Lantus SoloStar) 100 UNIT/ML injection pen Inject 65 Units under the skin into the appropriate area as directed Daily. 30 mL 5 5 Active Insulin Lispro, 1 Unit Dial, (HumaLOG KwikPen) 100 UNIT/ML solution pen-injector 0-10 Units under the skin into the appropriate area as directed 3 (Three) Times a Day 15 mL 5 5 Active Continuous Glucose Sensor (Dexcom G7 Sensor) [facility] USE DIRECTED TO TEST BLOOD GLUCOSE LEVEL CHANGE SENSOR EVERY 10 DAYS 3 each 5 5 Active Active Problems No known active problems Encounters Date Type Department Care Team Description 10/16/2024 Refill [facility] [address] [facility] [address] [place] [address] Melina Jernigan MD 09/30/2024 Results Follow-Up [facility] [address] [facility] [address] [place] [address] Melina Jernigan MD from Last 3 Months Immunizations Immunization Administration Dates Next Due 31-influenza Vac Quardvalent Preservativ 016,03/23/2015 DTaP, Unspecified 08/31/2009 Fluzone (or Fluarix & Flulav al for VFC) >6mos 03/12/2022,04/10/2021,03/03/2020 Hepatitis A 06/09/2018 Influenza Injectable Mdck Pf Quad 04/28/2023 Influenza Seasonal Injectable 02/17/2018, 014 Pneumococcal Polysaccharide (PPSV23) 04/11/2016 Tdap 12/10/2019 Zostavax 12/08/2018 Family History Medical History Relation Name Comments Heart disease Father [place] Hypertension Father Gabby Obesity Father Gabby Kidney disease Maternal Aunt 1 None Kidney disease Maternal Aunt 2 Marissa [place] Diabetes Maternal Uncle None Kidney disease Maternal Uncle None Hypertension Mother Leandra Thyroid disease Mother Leandra Kidney disease Paternal Aunt 1 None Kidney disease Paternal Aunt 2 [place] Kidney disease Paternal Aunt 3 JD2 Diabetes Paternal Uncle 1 None Kidney disease Paternal Uncle 1 None Diabetes Paternal Uncle 2 [place] Kidney disease Paternal Uncle 2 [place] Diabetes Paternal Uncle 3 [place] Kidney disease Paternal Uncle 3 [place] Breast cancer Sister 1 Daphne Cancer Sister 1 Daphne Fibromyalgia Sister 1 Daphne Relation Name Status Comments Daughter Margret Alive Father [place] Maternal Aunt 1 None Maternal Aunt 2 Marissa [place] Maternal Uncle None Mother Leandra Paternal Aunt 1 None Paternal Aunt 2 [place] Paternal Aunt 3 JD2 Paternal Uncle 1 None Paternal Uncle 2 [place] Paternal Uncle 3 [place] Sister 1 Daphne Alive Sister 2 [place] Alive Social History Tobacco Use Types Packs/Day Years [...] Sign Reading Time Taken Comments Blood Pressure 126/76 09/29/2024 8:30 AM EDT Pulse 94 09/29/2024 8:30 AM EDT Temperature - - Respiratory Rate - - Oxygen Saturation 97% 09/29/2024 8:30 AM EDT Inhaled Oxygen Concentration - - Weight 104 kg (229 lb) 09/29/2024 8:30 AM EDT Height 167.6 cm (5' 5.98 ) 09/29/2024 8:30 AM E DT Body Mass Index 36.98 09/29/2024 8:30 AM EDT Plan of Treatment Upcoming Encounters Date Type Department Care Team (Late st Contact Info) Description 02/03/2025 9:30 AM EDT Office Visit [facility] [address] [place] [address] Melina Jernigan MD [address] [place] [address] Health Maintenance Due Date Last Done Comments Annual Gynecologic Pelvic an d Breast Exam 1966 Hepatitis B (1 of 3 - 19+ 3- dose series) 1985 PAP SMEAR 1987 COLOGUARD 2011 COLON CANCER SCREENING 5 YEA R SIGMOIDOSCOPY 2011 COLONOSCOPY 2011 [address]AL CANCER SCREENING 2011 CT COLONOGRAPHY 2011 FECAL OCCULT BLOOD TEST 2011 FIT Testing (1 year) 2011 Pneumococcal Vaccine 50+ (2 of 2 - PCV) 04/11/2017 04/11/2016 ZOSTER VACCINE (2 of 3) 02/02/2019 12/08/2018 MAMMOGRAM 08/22/2019 08/21/2017, 07/31, 08/15/2017, Additional history exists ANNUAL WELLNESS VISIT 06/13/2022 COVID-19 Vaccine (4 - 2023-2 5 season) 2024 03/01/2021, 08/31/2020, 08/03/2020 INFLUENZA VACCINE 03/02/2025 03/17/2024, , 03/12/2022, Additional history exists HEMOGLOBIN A1C 03/31/2025 09/29/2024, 01/01, 09/23/2023, Additional history exists DIABETIC EYE EXAM 06/09/2025 06/09/2024 (Jaime adrian-Reported (Performed Externally)), 05/15/2022 (Patient-Reported (Performed Externally)) DIABETIC FOOT EXAM 09/29/2025 09/29/2024, 0 09/29/2024, 09/29/2024 LIPID PANEL 09/29/2025 09/29/2024, 09/01, 09/12/2022 URINE MICROALBUMIN-CREATININ E RATIO (uACR) 09/29/2025 09/29/2024 TDAP/TD VACCINES (2 - Td or Tdap) 12/09/2029 020 HEPATITIS C SCREENING Completed 03/29/2014 Procedures Procedure Name Priority Date/Time Associated Diagnosis Comments LIPID PANEL Routine 09/29/2024 9:04 AM EDT Hyperlipidemia, unspecified hyperlipidemia type POCT GLYCOSYLATED HEMOGLOBIN (HGB A1C) Routine 09/29/2024 8:43 AM EDT Type 2 diabetes mellitus with hyperglycemia, with long-term current use of insulin MAMMO DIAGNOSTIC DIGITAL TOMOSYNTHESIS LEFT W CAD Routine 08/21/2017 3:08 PM EDT Abnormal mammogram from Last 3 Months or Most Recently Relevant to Health Maintenance Results * Lipid Panel (09/29/2024 9:04 AM EDT) Total Cholesterol 128 0 - 200 mg/dL 09/29/2024 2:56 PM EDT [facility] Triglycerides 112 0 - 150 mg/dL 09/29/2024 2:56 PM EDT [facility] HDL Cholesterol 43 40 - 60 mg/dL 09/29/2024 2:56 PM EDT [facility] LDL Cholesterol 65 0 - 100 mg/dL 09/29/2024 2:56 PM EDT [facility] VLDL Cholesterol 20 5 - 40 mg/dL 09/29/2024 2:56 PM EDT [facility] LDL/HDL Ratio 1.46 09/29/2024 2:56 PM EDT [facility] Blood Structure of left upper limb / Unknown Venipuncture / Unknown 09/29/2024 9:04 AM EDT 09/29/2024 9:04 AM EDT Narrative [facility] - 09/29/2024 2:56 PM EDT Cholesterol Reference Ranges (U.S. Department of Health and Human Services ATP III Classifications) Desirable <200 mg/dL Borderline High 200-239 mg/dL High Risk >240 mg/dL Triglyceride Reference Ranges (U.S. Department of Health and Human Services ATP III Classifications) Normal <150 mg/dL Borderline High 150-199 mg/dL High 200-499 mg/dL Very High >500 mg/dL HDL Reference Ranges (U.S. Department of Health and Human Services ATP III Classifications) Low <40 mg/dl (major risk factor for CHD) High >60 mg/dl ('negative' risk factor for CHD) LDL Reference Ranges (U.S. Department of Health and Human Services ATP III Classifications) Optimal <100 mg/dL Near Optimal 100-129 mg/dL Borderline High 130-159 mg/dL High 160-189 mg/dL Very High >189 mg/dL LDL is calculated using the NIH LDL-C calculation. us Melina Jernigan MD LAB BLOOD ORDERABLES Final Resu lt Performing Organization Address City/[facility]/ZIP Co de Phone Number [facility]
[address] [place] [address], [place] [phone] * (ABNORMAL) POC Glycosylated Hemoglobin (Hb A1C) (09/29/2024 8:43 AM EDT) Hemoglobin A1C 6.5(A) 4.5 - 5.7 % [facility] Lot Number [id number] [facility] Expiration Date [facility] Blood 09/29/2024 8:43 AM EDT us Melina Jernigan MD POINT OF CARE TEST ORDERABLES F inal Result [facility]
[address] [place] [address], [place] [phone] * Mammo Diagnostic Digital Tomosynthesis Left With CAD (08/21/2017 3:08 PM EDT) Anatomical Region Laterality Modality Breast Left Mammography 08/21/2017 3:54 PM EDT Impressions 08/21/2017 5:49 PM EDT Benign left mammogram. RECOMMENDATION: 1. Annual screening mammography. The patient's next bilateral screening mammogram is due after 11/18/2017. 2. The patient is a candidate for annual high risk screening breast MRI imaging based on the results of the Sara risk assessment model performed at the time of mammographic imaging. BI-RADS CATEGORY 2, BENIGN. CAD was utilized. The standard false-negative rate of mammography is between 10% and 25%. Complex patterns or increased breast density will markedly elevate the false-negative rate of mammography. A results letter, in lay terminology, will be given to the patient at the conclusion of the exam. This report was finalized on 08/21/2017 5:[address] Mira Ferguson MD. Narrative 08/21/2017 5:49 PM EDT EXAMINATION: LEFT DIAGNOSTIC DIGITAL MAMMOGRAM WITH TOMOSYNTHESIS: HISTORY: 52-year-old patient who presents for a second opinion regarding calcifications in the left breast. Attempted stereotactic biopsy and wire localization and surgical excision were performed at [facility]. The calcifications were not obtained with either procedure. The patient has no personal history of breast cancer. A sister was diagnosed with breast cancer at age 62. The Sara risk assessment model performed today revealed a 25.1% estimated lifetime risk for developing breast cancer. The patient is considered high risk. She has a history of bilateral reduction mammoplasties. TECHNIQUE: Left breast low dose full field digital CC and MLO imaging was performed with 2D and 3D acquisitions. Left CC and ML magnification views and a 2-D/3-D left CC focal compression view were also obtained. COMPARISON: 07/14/2017, 01/29/2017, 12/25/2016, 11/29/2016, 11/18/2016, 09/11/2015, 08/09/2014, 01/06/2014, and 06/11/2013. FINDINGS: There are scattered areas of fibroglandular density. The fibroglandular pattern and postreduction changes are stable in appearance. A nodular asymmetry in the left subareolar region on CC imaging resolved on focal compression imaging. There is postoperative architectural distortion located in the far superior breast that is associated with a surgical scar marker. An asymmetry in the posterior aspect of the left central breast on MLO imaging improved on the anterior MLO view and is stable compared to multiple prior studies. Magnification imaging of grouped calcifications in the far posterior left upper outer quadrant demonstrates grouped, amorphous calcifications. These calcifications have not significantly changed in appearance compared to the prior 06/11/2013 mammogram. There is a postbiopsy marking clip in the left 9:00-10:00 region. No suspicious mammographic findings are identified. Salvador Ivan MD IMG MAMMOGRAPHY ORDERABLES F inal Result from Last 3 Months or Most Recently Relevant to Health Maintenance Insurance Care Teams Cooker Casing Relationship Specialty Start Date End Date Martha Nielsen APRN [address] [place] [address] PCP - General Family Medicine 09/29/24
--- OUTSIDE RECORDS SUMMARY | 2024-12-31 18:18 | XMS_ITS | Clinical Summary ---
Author Organization [facility] Address [address] [place] [address] Care Team Providers Care Solution Architect Name Role Phone Tien Wade MD Primary Care Provider [phone] Allergies Active Allergy Reactions Criticality Noted Date [...] 10 DAYS 2 Active Continuous Blood Gluc Rodent Exterminator (Dexcom G6 nuclear engineer) device USE DIRECTED TO TEST BLOOD GLUCOSE [...] Description 04/08/2025 9:20 AM EST Office Visit [facility] [address] [place] [address] Dawood Ahn MD [address] [place] [phone] Health Maintenance Due Date Last Done Comments [facility]-Depression Screening 1966 [facility]-Diabetes: Hemoglobin A1C 1966 [facility]-HIV Screening 1966 [facility]-Medicare Annual Wellness (AWV) 1966 [facility]-/Child/Adol SDOH Screenings 1966 Diabetes: Dental Exam 02/15/1976 [...] 02/02/2019 12/08/2018 [facility]-Breast Cancer Screening 08/22/2019 08/21/2017 [id number] Vaccine ( season) 2024 03/01/2021, 08/31/2020, 08/03/2020 [facility]-Influenza Vaccine (#1) 01/31/202503/17, 04/28/2023, 03/12/2022, Additional history exists [facility]-DTaP,Tdap,and Td Vaccines (3 - Td or Tdap) 12/09/2029 12/10/2019, 08/31/2009 [facility]-Hepatitis C Screening Completed 03/29/2014 [facility]-Hepatitis A Vaccines Aged Out 06/09/2018 No longer eligible based on patient's age to complete this topic [facility]-Obesity Intervention Completed 04/02/2024, 07/31 HPV Vaccines [...] us Historical Provider LAB BLOOD ORDERABLES Marjorie burgess Result SUNQUEST from Last 3 Months or Most Recently Relevant to Health Maintenance Insurance Care Teams Solution Architect Relationship Specialty Start Date End Date Tien Wade MD [address] [place] [address] PCP - General 10/13/20
--- OUTSIDE RECORDS SUMMARY | 2024-12-31 18:18 | XMS_ITS | Encounter Summary ---
Author Organization [facility] Address [address] [place] [address] Care Team Providers Care Die Stamper Name Role Phone Tien Wade MD Primary Care Provider [phone] Encounter Details Date Type Department Care Team (Late st Contact Info) Description 05/10/2021 Community [facility] [address] [place] [address] Tien Wade MD [address] [place] [address] Bulging lumbar disc (Primary Dx) [...] Description 04/08/2025 9:20 AM EST Office Visit [facility] [address] [place] [phone] Dawood Ahn MD [address] [place] [phone] documented as of this encounter Visit Diagnoses Diagnosis Bulging lumbar disc- Primary documented in this encounter Care Teams Die Stamper Relationship Specialty Start Date End Date Tien Wade MD [address] [place] [address] PCP - General 10/13/20 documented as of this encounter
--- NOTE | 2024-12-31 18:21 | ED_ITS ---
Discharge Plan Disposition Patient Disposition: Home, Self-Care Prescriptions Prescriptions: No Action Mirena 20 mcg/24 hours (5 yrs) 52 mg intrauterine device 20 mcg INTRAUTERI WEEKLY aspirin 81 mg tablet,delayed release (DR/EC) 81 mg PO DAILY 60 Days Qty: 60 0RF atorvastatin 80 mg tablet 80 mg PO HS Qty: 90 3RF bisoprolol fumarate 5 mg tablet 5 mg PO DAILY Qty: 90 3RF lisinopril-hydrochlorothiazide 10-12.5 mg tablet 1 tab PO DAILY Qty: 90 3RF pantoprazole 40 mg tablet,delayed release (DR/EC) 40 mg PO DAILY Qty: 90 3RF Mounjaro 12.5 mg/0.5 mL pen injector SQ cholecalciferol (vitamin D3) 125 mcg (5,000 unit) capsule See Rx Instructions .ROUTE .COMPLEX Qty: 30 3RF Dose Instruction: TAKE ONE CAPSULE BY MOUTH EVERY DAY Rx Instructions: TAKE ONE CAPSULE BY MOUTH EVERY DAY levothyroxine 100 mcg tablet See Rx Instructions .ROUTE .COMPLEX Qty: 90 0RF Dose Instruction: TAKE ONE TABLET BY MOUTH EVERY DAY Rx Instructions: TAKE ONE TABLET BY MOUTH EVERY DAY tramadol 50 mg tablet 50 mg PO BID PRN (Reason: pain) 60 Days Qty: 60 0RF lamotrigine [Lamictal] 25 mg tablet 100 mg PO DAILY Qty: 100 0RF Rx Instructions: Take three tablets daily for two weeks, then increase to four tablets daily. If you develop itching or a rash, stop the medications, and call the clinic. amitriptyline 10 mg tablet 10 - 30 mg PO HS PRN (Reason: insomnia) Qty: 60 0RF Centrum Silver Women 8 mg iron-400 mcg-300 mcg tablet 1 tab PO DAILY Qty: 90 0RF insulin glargine [Lantus Solostar U-100 Insulin] 100 unit/mL (3 mL) insulin pen 65 unit SQ DAILY ketoconazole 2 % shampoo See Rx Instructions .ROUTE .COMPLEX Patient Comments: APPLY TOPICALLY TO THE AFFECTED AREA(S) three times WEEKLY Rx Instructions: unknown insulin lispro 100 unit/mL insulin pen 3 unit SQ DAILYP PRN (Reason: sliding scale) Patient Comments: INJECT 0-10 UNITS SUBCUTANEOUSLY into THE appropriate AREA THREE TIMES DAILY DIRECTED (DME) Dexcom G7 Soaking Tank Worker Misc See Rx Instructions .Route Qty: 1 0RF Rx Instructions: As directed (DME) Dexcom G7 Sensor Device See Rx Instructions .ROUTE .COMPLEX Qty: 1 0RF Dose Instruction: USE DIRECTED TO TEST BLOOD GLUCOSE LEVEL CHANGE SENSOR EVERY 10 DAYS Rx Instructions: USE DIRECTED TO TEST BLOOD GLUCOSE LEVEL CHANGE SENSOR EVERY 10 DAYS ondansetron 8 mg tablet,disintegrating See Rx Instructions .ROUTE .COMPLEX Qty: 30 2RF Dose Instruction: DISSOLVE ONE TABLET BY MOUTH EVERY 8 HOURS NEEDED FOR NAUSEA AND VOMITING Rx Instructions: DISSOLVE ONE TABLET BY MOUTH EVERY 8 HOURS NEEDED FOR NAUSEA AND VOMITING methylphenidate HCl 20 mg tablet 20 mg PO DAILY 30 Days Qty: 30 0RF (DME) pen needle, diabetic [Comfort EZ Pen Wilbraham] 31 gauge x 5/16 needle See Rx Instructions .Route Rx Instructions: As directed Referrals Follow up/Referrals: Martha Nielsen APRN [Primary Care Provider, Family Practice] - See instructions Shar Villa MD [Staff Physician, Cardiology] - See instructions Dea Nicole MD [Physician, Pulmonology] - See instructions Activity Restrictions/Add. Instructions Additional Instructions/Restrictions: No definitive diagnosis from an emergency standpoint to explain your symptoms. I recommend you follow-up closely with cardiology and pulmonology as discussed. There is definitely an anxiety component to your symptoms which also need to be addressed. Return with any significant worsening of your symptoms or other concerns. Clinical Impressions Clinical Impression: Pressure in chest, Anxiety Print Language Print Language: Sinhala Discharge ED Provider: Dalila Boucher HPI <Dalila Boucher MD - Last Filed: 12/31/24 19:42> General Chief Complaint: Chest Pain Stated Complaint: chest heaviness Time Seen by Provider: 12/31/24 18:20 History of Present Illness HPI narrative: The patient is a 59-year-old female presented today with chest discomfort. States this has been ongoing for about 6 to 8 hours is located in the central aspect of her chest nonradiating no diaphoresis or dyspnea associated with this. States that she had a stress test and a heart cath about 10 years ago which were unremarkable and has no diagnosed history of COPD heart failure coronary artery disease etc. She also states that she is very stressed out and anxious but no more so than normal. Denies any fevers chills cough denies any lower extremity swelling denies any hemoptysis history of DVT PE etc. Related Data Home Medications ?Medication ?Instructions ?Recorded ?Confirmed levonorgestrel (Mirena) 20 mcg intrauterine WEEKLY . 11/08/19 12/22/24 pen needle, diabetic 31 gauge x 05/06/22 12/22/24 5/16 (Comfort EZ Pen Wilbraham) insulin glargine 100 unit/mL (3 65 unit SQ DAILY 02/0312/22/24 mL) subcutaneous pen (Lantus Solostar U-100 Insulin) insulin lispro 100 unit/mL 3 unit SQ DAILYP PRN slidin g scale 02/04/24 12/22/24 subcutaneous pen ketoconazole 2 % shampoo See Rx Instructions .Route . COMPLEX 02/04/24 12/22/24 tirzepatide 12.5 mg/0.5 mL mg SQ 06/15/24 12/22/24 subcutaneous pen injector (Anayeli) Previous Rx's ?Medication ?Instructions ?Recorded nytmlepi-hdnw-nryo 8 mg-folic 400 1 tab PO DAILY Suppl ement #90 tabs 09/03/19 mcg-K 50 mcg-lutein 300 mcg tablet (Centrum [place] Women) aspirin 81 mg tablet,delayed 81 mg PO DAILY Heart Heal th 60 12/21/21 release days #60 tabs blood-glucose,lamination spinner,cont #1 ea 03/31/23 (Dexcom G7 Soaking Tank Worker) blood-glucose sensor (Dexcom G7 #1 ea 05/05/23 Sensor device) ondansetron 8 mg disintegrating See Rx Instructions .R oute 08/23/24 tablet .COMPLEX #30 ea cholecalciferol (vitamin D3) 125 See Rx Instructions . Route 10/28/24 mcg (5,000 unit) capsule .COMPLEX #30 caps levothyroxine 100 mcg tablet See Rx Instructions .Rout e 10/28/24 .COMPLEX #90 tabs tramadol 50 mg tablet 50 mg PO BID PRN pain 60 day s #60 10/28/24 tabs atorvastatin 80 mg tablet 80 mg PO HS #90 tabs 5 bisoprolol fumarate 5 mg tablet 5 mg PO DAILY #90 tabs 11/09/24 lisinopril 10 1 tab PO DAILY #90 tabs 10/31 0/25 mg-hydrochlorothiazide 12.5 mg tablet pantoprazole 40 mg tablet,delayed 40 mg PO DAILY #90 t abs 11/09/24 release methylphenidate HCl 20 mg tablet 20 mg PO DAILY 30 day s #30 tabs 11/30/24 amitriptyline 10 mg tablet 10 - 30 mg (1 - 3 x 10 mg) PO HS 12/22/24 PRN insomnia #60 tabs lamotrigine 25 mg tablet (Lamictal) 100 mg (4 x 25 mg) PO DAILY #100 12/22/24 tabs Allergies Allergy/AdvReac Type Severity Reaction Status Date / Time milnacipran (From SAVELLA) Allergy Severe NA-NAUSEA/V Verified 12/22/24 08:06 OMITING pregabalin (From LYRICA) Allergy Severe NA-NAUSEA, Verified 12/22/24 08:06 HEADACHE modafinil (From PROVIGIL) Allergy Unknown I-RASH Verified 12/22/24 08:06 <Melina Morales APRN - Last Filed: 01/01/25 09:05> General Mode of Arrival: Ambulatory Source of Information: Patient Description of Symptoms (Recalled from ER Triage Doc. by RN): pt states around 1330 she began having L sided chest heaviness. pt also reports, feeling like I'm smothering and nausea. pt states this has happened two other times this week. pt denies cardiac hx. pt is crying and anxious. PENDING SALE TO [facility] <Dalila Boucher MD - Last Filed: 12/31/24 19:42> PENDING SALE TO [facility] Medical History BMI 38.0-38.9,adult This patient is onto his appetite. Will see how this does for her weight loss and also for diabetic control. Cellulitis Cough Hearing Loss Bilateral hearing aid Loss of smell Abnormal taste in mouth Tinnitus Hypotension Abscess Complex sleep apnea syndrome Her gabapentin and tramadol before bedtime are likely contributing factors for central respiratory events. Advised to take gabapentin, tramadol no later than 5 PM, avoid driving if drowsiness, sleepiness is present. Generalized anxiety disorder Major depressive disorder Normal colonoscopy HTN (hypertension) Obesity Diabetes Surgical History History of bilateral breast reduction surgery History of carpal tunnel release Family History Other Cancer Coronary artery disease Diabetes Heart attack Hypertension Social History Smoking Status: Never smoker second hand exposure: No alcohol intake: never counseling provided: none substance use type: denies use current occupational status: disabled Travel in the last 8 weeks?: None household members: other housing: house number of children: 1 current occupational exposures/hazards: No caffeine: Yes Have you lived/traveled outside US in past 30 days?: No Contact w/someone who lives/traveled outside US past 30 days?: No Exposure to someone with infectious disease in past 14 days?: No Do you have a fever (greater than 100.4 F or 38 C)?: No Have you tested positive for COVID-19?: No Exposed to someone with COVID-19 in past 14 days?: No Do you have a sore throat?: No Do you have a cough?: No Do you have any weakness?: No Do you have any diarrhea?: No Are you experiencing any unusual bleeding?: No Do you have any muscle aches/pain?: No Do you have any abdominal pain?: No Are you experiencing loss of taste or smell?: No <Melina Morales APRN - Last Filed: 01/01/25 09:05> PENDING SALE TO [facility] Disclaimer: The information contained in this section may have been updated after the patient was seen, as this information can be updated by other users. Other Medical History Have you received the Flu Vaccine for this season: Yes Have you received the Pneumonia Vaccine: Yes <Dalila Boucher MD - Last Filed: 12/31/24 19:42> ROS Obtained: Yes All systems reviewed & no additional complaints except as documented Physical Exam <Dalila Boucher MD - Last Filed: 12/31/24 19:42> General General appearance: anxious (Is crying) Respiratory Respiratory exam: Present normal lung sounds bilaterally; Absent respiratory distress Cardiovascular Cardiovascular exam: Present regular rate and normal rhythm Neurological Exam Neurological exam: Present alert and oriented X3 HEART Score <Dalila Boucher MD - Last Filed: 12/31/24 19:42> HEART Score HEART Score assessment performed?: Yes History (anamnesis): Slightly suspicious ECG: Normal Age: 45-65 years Risk factors: 1-2 risk factors Troponin: </= normal limit HEART Score: 2 <Melina Morales APRN - Last Filed: 01/01/25 09:05> HEART Score HEART Score: 2 Critical Care <Dalila Boucher MD - Last Filed: 12/31/24 19:42> Critical Care Time Critical Care Time: No Medical Decision Making <Dalila Boucher MD - Last Filed: 12/31/24 19:42> Agustín Inquiry Pt receiving controlled substance: No Vital Signs Vital Signs: 12/31/24 18:04 12/31/24 18:30 12/31/24 19:00 Temperature 98.2 F Temperature Source Oral Pulse Rate 72 73 Pulse Rate [Left] 75 Respiratory Rate 16 17 Blood Pressure 108/78 L 116/65 Blood Pressure [Right Arm] 148/78 H Blood Pressure Mean [Right Arm] 101 Blood Pressure Source [Right Arm] Automatic Cuff Blood Pressure Position Blood Pressure Position [Right Arm] Sitting 02 Sat by Pulse Oximetry 100 100 97 Oxygen Delivery Method Room Air Room Air 12/31/24 19:30 12/31/24 19:47 Temperature 97.6 F 97.6 F Temperature Source Oral Pulse Rate 60 60 Pulse Rate [Left] Respiratory Rate 17 16 Blood Pressure 116/70 116/70 Blood Pressure [Right Arm] Blood Pressure Mean [Right Arm] Blood Pressure Source [Right Arm] Blood Pressure Position Supine Blood Pressure Position [Right Arm] 02 Sat by Pulse Oximetry 97 Oxygen Delivery Method Room Air Lab Data Lab results reviewed: Yes I reviewed the patient's lab results. Labs: Lab Results 12/31/24 18:04: WBC 9.7, RBC 4.71, Hgb 14.5, Hct 41.3, MCV 87.7, MCH 30.8, MCHC 35.1, RDW 12.6, Plt Count 257, MPV 11.3 H, Neut % (Auto) 71.0, Lymph % (Auto) 21.1, [place] % (Auto) 7.1, Eos % (Auto) 0.2, Baso % (Auto) 0.3, Neut # (Auto) 6.9, Lymph # (Auto) 2.1, [place] # (Auto) 0.7, Eos # (Auto) 0.0, Baso # (Auto) 0.0, D- Dimer 0.49, Sodium 142, Potassium 3.6, Chloride 103, Carbon Dioxide 27, Anion Gap 15.6 H, BUN 20 H, Creatinine 1.20 H, Estimated Creat Clear 36, Estimated GFR 46 L, Est GFR ( Amer) 56 L, Glucose 141 H, Calcium 10.5 H, Total Bilirubin 0.5, AST 50 H, ALT 43, Alkaline Phosphatase 105, Troponin I < 0.01, N T-Pro-B Natriuret Pep 148 H, Total Protein 7.9, Albumin 4.8, Globulin 3.1, Albumin/Globulin Ratio 1.5, Lipase 281 12/31/24 18:04 12/31/24 18:04 Response Orders (Tests/Meds): ED MEDICATIONS Discontinued Medications Generic Name Dose Route Start Last Admin Trade Name Freq PRN Reason Stop Dose Admin Diazepam 2 mg 12/31/24 18:34 12/31/24 18:39 Diazepam 10mg/2ml Syringe IV 12/31/24 18:35 2 mg ONCE ONE Administration Lorazepam 1 mg 12/31/24 18:25 12/31/24 18:36 Lorazepam 2mg/Ml Vial IV 12/31/24 18:26 Not Given ONCE ONE Sodium Chloride 10 ml 12/31/24 18:25 Sodium Chloride 0.9% 10ml Vial IV 01/30/25 18:24 NEEDED PRN to Dilute Lorazepam inj ORDERS Category Date Time Status CXR --portable [XR chest portable] Stat Exams 12/31/24 18:25 Completed BNP [NT Pro Brain Natriuretic Pep.] Stat Lab 12/31/24 18:04 Completed CBC w/Auto Diff [Complete Blood Count Auto Diff] Stat Lab 12/31/24 18:04 Completed CMP [Comprehensive Metabolic Panel] Stat Lab 12/31/24 18:04 Completed D-Dimer Stat Lab 12/31/24 18:04 Completed Lipase Stat Lab 12/31/24 18:04 Completed Trop I [Troponin I] Stat Lab 12/31/24 18:04 Completed ECG Data Tracing #1: Attestation: I reviewed this ECG and interpreted as documented below: ECG Narrative: Ventricular rate of 78 low voltage QRS precordial leads no significant ST depressions or elevations no other acute ischemic changes noted normal axis no significant conduction abnormalities noted MDM Narrative Medical Decision Narrative: Anxious appearing 59-year-old who is crying presents today with chest discomfort for the last 6 to 8 hours. On the differential certainly includes anxiety but also acute coronary syndrome heart failure pneumonia pulmonary embolism etc. Will get the appropriate workup given the fact that her presentation is about 6 to 8 hours after initial symptoms 1 troponin may be adequate to rule out acute coronary syndrome but I will have a discussion with her after initial workup is complete. I am giving her Ativan to relax her at the moment while the remainder of her workup is pending. Reassessment 741 patient remains very stable labs unremarkable including undetectably low troponin D-dimer less than 1 BNP that is normal chest x-ray is performed which I personally interpreted shows no evidence of acute cardiopulmonary emergency. Overall this is not consistent with an emergent medical condition. As discussed her symptoms have been going on for 6 hours upon arrival I discussed with her the possibility of getting a second troponin however she opted to not proceed with this. Incredibly unlikely that this is acute coronary syndrome. She did feel somewhat better after the Valium that was given Ativan was initially ordered but we are under shortage. There certainly an anxiety component to this which her is at the bedside and daughter at the bedside agree with. She will follow-up closely with cardiology and pulmonary and return with any significant worsening of her symptoms. <Melina Morales, DATA COLLECTION SPECIALIST - Last Filed: 01/01/25 09:05> Vital Signs Vital Signs: 12/31/24 18:04 12/31/24 18:30 12/31/24 19:00 Temperature 98.2 F Temperature Source Oral Pulse Rate 72 73 Pulse Rate [Left] 75 Respiratory Rate 16 17 Blood Pressure 108/78 L 116/65 Blood Pressure [Right Arm] 148/78 H Blood Pressure Mean [Right Arm] 101 Blood Pressure Source [Right Arm] Automatic Cuff Blood Pressure Position Blood Pressure Position [Right Arm] Sitting 02 Sat by Pulse Oximetry 100 100 97 Oxygen Delivery Method Room Air Room Air 12/31/24 19:30 12/31/24 19:47 Temperature 97.6 F 97.6 F Temperature Source Oral Pulse Rate 60 60 Pulse Rate [Left] Respiratory Rate 17 16 Blood Pressure 116/70 116/70 Blood Pressure [Right Arm] Blood Pressure Mean [Right Arm] Blood Pressure Source [Right Arm] Blood Pressure Position Supine Blood Pressure Position [Right Arm] 02 Sat by Pulse Oximetry 97 Oxygen Delivery Method Room Air Lab Data Labs: Lab Results 12/31/24 18:04: WBC 9.7, RBC 4.71, Hgb 14.5, Hct 41.3, MCV 87.7, MCH 30.8, MCHC 35.1, RDW 12.6, Plt Count 257, MPV 11.3 H, Neut % (Auto) 71.0, Lymph % (Auto) 21.1, [place] % (Auto) 7.1, Eos % (Auto) 0.2, Baso % (Auto) 0.3, Neut # (Auto) 6.9, Lymph # (Auto) 2.1, [place] # (Auto) 0.7, Eos # (Auto) 0.0, Baso # (Auto) 0.0, D- Dimer 0.49, Sodium 142, Potassium 3.6, Chloride 103, Carbon Dioxide 27, Anion Gap 15.6 H, BUN 20 H, Creatinine 1.20 H, Estimated Creat Clear 36, Estimated GFR 46 L, Est GFR ( Amer) 56 L, Glucose 141 H, Calcium 10.5 H, Total Bilirubin 0.5, AST 50 H, ALT 43, Alkaline Phosphatase 105, Troponin I < 0.01, N T-Pro-B Natriuret Pep 148 H, Total Protein 7.9, Albumin 4.8, Globulin 3.1, Albumin/Globulin Ratio 1.5, Lipase 281 Response Orders (Tests/Meds): ED MEDICATIONS Discontinued Medications Generic Name Dose Route Start Last Admin Trade Name Freq PRN Reason Stop Dose Admin Diazepam 2 mg 12/31/24 18:34 12/31/24 18:39 Diazepam 10mg/2ml Syringe IV 12/31/24 18:35 2 mg ONCE ONE Administration Lorazepam 1 mg 12/31/24 18:25 12/31/24 18:36 Lorazepam 2mg/Ml Vial IV 12/31/24 18:26 Not Given ONCE ONE Sodium Chloride 10 ml 12/31/24 18:25 Sodium Chloride 0.9% 10ml Vial IV 01/30/25 18:24 NEEDED PRN to Dilute Lorazepam inj ORDERS Category Date Time Status CXR --portable [XR chest portable] Stat Exams 12/31/24 18:25 Completed BNP [NT Pro Brain Natriuretic Pep.] Stat Lab 12/31/24 18:04 Completed CBC w/Auto Diff [Complete Blood Count Auto Diff] Stat Lab 12/31/24 18:04 Completed CMP [Comprehensive Metabolic Panel] Stat Lab 12/31/24 18:04 Completed D-Dimer Stat Lab 12/31/24 18:04 Completed Lipase Stat Lab 12/31/24 18:04 Completed Trop I [Troponin I] Stat Lab 12/31/24 18:04 Completed
--- NOTE | 2024-12-31 18:25 | XR_ITS ---
PROCEDURE INFORMATION: Exam: XR Chest Exam date and time: 12/31/2024 6:34 PM Age: 59 years old Clinical indication: Dyspnea TECHNIQUE: Imaging protocol: Radiologic exam of the chest. Views: 1 view. COMPARISON: CR XR CHEST 2V 03/04/2022 9:58 AM FINDINGS: Lungs: Unremarkable. No consolidation. Pleural spaces: Unremarkable. No pleural effusion. No pneumothorax. Heart/Mediastinum: Unremarkable. No cardiomegaly. Bones/joints: Unremarkable. IMPRESSION: No acute findings.
--- NOTE | 2024-12-31 18:25 | PC.NURSE ---
DR CABEZAS AT BEDSIDE
[2024-12-31 18:30] VITALS: BP 108/78; PULSE 72; O2SAT 100
[2024-12-31 18:31] LABS: Hematocrit 41.3 % (37.0-47.0); Hemoglobin 14.5 g/dL (12.2-16.2); Immature Granulocytes % 0.3 %; Mean Corpuscular HGB Conc 35.1 g/dL (31.8-35.4); Mean Corpuscular Hemoglobin 30.8 pg (27.0-31.2); Mean Corpuscular Volume 87.7 fl (81-99); Nucleated Red Blood Cells % 0 %; Platelet Count 257 K/mm3 (142-424); Red Blood Count 4.71 M/mm3 (4.20-5.40); Red Cell Distribution Width-SD 40.0 fL; White Blood Count 9.7 K/mm3 (4.8-10.8)
--- NOTE | 2024-12-31 18:36 | PC.NURSE ---
xrays finshed at this time
[2024-12-31 18:37] LABS: Lipase 281 U/L (23-300)
[2024-12-31 18:38] LABS: Alanine Aminotransferase 43 U/L (12-78); Albumin Level 4.8 g/dl (3.5-5.0); Albumin/Globulin Ratio 1.5 (1.1-1.8); Alkaline Phosphatase 105 U/L (38-126); Anion Gap 15.6 mEq/L (5-15); Aspartate Amino Transferase 50 U/L (14-36); Bilirubin,Total 0.5 mg/dl (0.2-1.3); Blood Urea Nitrogen 20 mg/dl (7-17); Calcium 10.5 mg/dl (8.4-10.2); Carbon Dioxide 27 mmol/L (22.0-30.0); Chloride 103 mmol/L (98-107); Creatinine Clearance Estimated 36 mL/min (50-200); Creatinine,Serum 1.20 mg/dl (0.52-1.04); Estimated Glomerular Filt Rate 46 ml/min (>60); GFR (African American) 56 ML/MIN (>60); Globulin 3.1 g/dL (1.3-3.2); Glucose 141 mg/dl (74-100); Potassium 3.6 mmoL/L (3.5-5.1); Sodium 142 mmol/L (136-145); Total Protein,Serum 7.9 g/dl (6.3-8.2)
[2024-12-31] MEDS: diazePAM 10MG/2ML SYRINGE 2 MG IV (18:39)
[2024-12-31 18:43] LABS: D-Dimer 0.49 ug/mL (0.0-0.5)
[2024-12-31 18:51] LABS: NT Pro Brain Natriuretic Pep. 148 pg/mL (0-125)
[2024-12-31 18:57] LABS: Troponin I < 0.01 ng/ml (0.00-0.034)
[2024-12-31 19:00] VITALS: BP 116/65; PULSE 73; RESP 17; O2SAT 97
--- NOTE | 2024-12-31 19:02 | PC.NURSE ---
PT REPORTS NO CHANGE SINCE VALIUM. PROVIDER NOTIFIED
[2024-12-31 19:30] VITALS: BP 116/70; PULSE 60; RESP 17; TEMP 36.4; O2SAT 97
[2024-12-31 19:47] VITALS: BP 116/70; PULSE 60; RESP 16; TEMP 36.4; O2SAT 97
== END 2024-12-31 19:48 | disposition home or self-care (01) ==
PROVIDERS: Emergency Provider Student in an Organized Health Care Education/Training Program; PCP Family Medicine
DX: R07.89 Other chest pain (principal); F41.1 Generalized anxiety disorder; I10 Essential (primary) hypertension; E11.9 Type 2 diabetes mellitus without complications
CPT/HCPCS: 71045; 80053; 83690; 83880; 84484; 85025; 85378; 93005; 96374; 99285; J3360

== ENCOUNTER 2025-01-04 07:48 | Outpatient (CLI) | payer MEDICARE, MEDICAID, SELFPAY ==
--- NOTE | 2025-01-04 | CA_ITS ---
APPROVED REPORT Exam: Pharmacologic Technologist: Maria Luz De Anda Ht: 5 ft 6 in Wt: 227 lbs BSA: 2.11 m2 HR: 55 bpm BP: 119/66 mmHg Stress Test Details Test: Lexiscan HR Resting HR: 55 bpm Max Heart Rate (APMHR): 162.500639 bpm Max HR Achieved: 107 bpm Target HR (85% APMHR): 137.976061 bpm % of APMHR: 66.05 Recovery HR: 71 bpm BP Resting BP: 119.0/66.0 mmHg Max BP: 148.0/72.0 mmHg Recovery BP: 107.0/68.0 mmHg ECG Stress ECG Conclusion Symptoms: Dyspnea, chest pressure Arrhythmias/Ectopy: PVC, PAC ST-T Changes: Less than [address] depression. Conclusion: EKG unremarkable due to Lexiscan infusion. Electronically signed by : Liat Donohue MD 01/04/2025 20:35:06
--- OUTSIDE RECORDS SUMMARY | 2025-01-04 07:50 | XMS_ITS | Encounter Summary ---
Author Organization [facility] Address [address] [place] [address] Care Team Providers Care Tutor Coordinator Name Role Phone Tien Wade MD Primary Care Provider [phone] Encounter Details Date Type Department Care Team (Late st Contact Info) Description 05/10/2021 [facility] [address] [place] [address] Tien Wade MD [address] [place] [address] Bulging lumbar disc (Primary Dx) [...] Description 04/08/2025 9:20 AM EST Office Visit [facility] [address] [place] [phone] Dawood Ahn MD [address] [place] [address] documented as of this encounter Visit Diagnoses Diagnosis Bulging lumbar disc- Primary documented in this encounter Care Teams Tutor Coordinator Relationship Specialty Start Date End Date Tien Wade MD [address] [place] [address] PCP - General 10/13/20 documented as of this encounter
--- OUTSIDE RECORDS SUMMARY | 2025-01-04 07:50 | XMS_ITS | Clinical Summary ---
Author Organization [facility] ystem Address [address] [place] [address] Care Team Providers Care Manager Technical Support Name Role Phone Martha Nielsen APRN Primary Care Provider [phone] Allergies Active Allergy Reactions Criticality Noted Date [...] by mouth Daily. Active Advocate Insulin Pen [place] 31G X 8 MM [facility] See Admin Instructions. 2 Active Levonorgestrel (MIRENA) [...] Active Continuous Glucose Sensor (Dexcom G7 Sensor) [facility] USE DIRECTED TO TEST BLOOD GLUCOSE LEVEL CHANGE SENSOR EVERY 10 DAYS 3 each 5 5 Active Active Problems No known active problems Encounters Date Type Department Care Team Description 10/16/2024 [facility] ENDOCRINOLOGY [address] [address] Melina Jernigan MD from Last 3 Months Immunizations Immunization Administration Dates Next Due 31-influenza Vac Quardvalent Preservativ 016,03/23/2015 DTaP, Unspecified 08/31/2009 Fluzone (or Fluarix & Flulav al for VFC) >6mos 03/12/2022,04/10/2021,03/03/2020 Hepatitis A 06/09/2018 Influenza Injectable Mdck Pf Quad 04/28/2023 Influenza Seasonal Injectable 02/17/2018, 014 Pneumococcal Polysaccharide (PPSV23) 04/11/2016 Tdap 12/10/2019 Zostavax 12/08/2018 Family History Medical History Relation Name Comments Heart disease Father [place] Hypertension Father [place] Obesity Father [place] Kidney disease Maternal Aunt 1 None Kidney disease Maternal Aunt 2 Marissa alcala Diabetes Maternal Uncle None Kidney disease Maternal Uncle None Hypertension Mother Leandra Thyroid disease Mother Leandra Kidney disease Paternal Aunt 1 None Kidney disease Paternal Aunt 2 [place] Kidney disease Paternal Aunt 3 JD2 Diabetes Paternal Uncle 1 None Kidney disease Paternal Uncle 1 None Diabetes Paternal Uncle 2 Dax Kidney disease Paternal Uncle 2 Dax Diabetes Paternal Uncle 3 [place] Kidney disease Paternal Uncle 3 [place] Breast cancer Sister 1 Daphne Cancer Sister 1 Daphne Fibromyalgia Sister 1 Daphne Relation Name Status Comments Daughter Margret Alive Father [place] Maternal Aunt 1 None Maternal Aunt 2 Marissa alcala Maternal Uncle None Mother Leandra Paternal Aunt 1 None Paternal Aunt 2 [place] Paternal Aunt 3 JD2 Paternal Uncle 1 None Paternal Uncle 2 Dax Paternal Uncle 3 [place] Sister 1 Daphne Alive Sister 2 Damaris [...] cm (5' 5.98 ) 09/29/2024 8:30 AM ED T Body Mass Index 36.98 09/29/2024 8:30 AM EDT Plan of Treatment Upcoming Encounters Date Type Department Care Team (Late st Contact Info) Description 02/03/2025 9:30 AM EDT Office Visit [facility] ENDOCRINOLOGY [address] [facility] [address] [place] [phone] Melina Jernigan MD [address] [facility] [address] [place] [id number] Health Maintenance Due Date Last Done Comments [...] history exists DIABETIC EYE EXAM 06/09/2025 06/09/2024 (Pa tient-Reported (Performed Externally)), 05/15/2022 (Patient-Reported (Performed Externally)) DIABETIC [...] - 200 mg/dL 09/29/2024 2:56 PM EDT [facility] Triglycerides 112 0 - 150 mg/dL 09/29/2024 2:56 PM EDT [facility] HDL Cholesterol 43 40 - 60 mg/dL 09/29/2024 2:56 PM EDT [facility] LDL Cholesterol 65 0 - 100 mg/dL 09/29/2024 2:56 PM EDT [facility] VLDL Cholesterol 20 5 - 40 mg/dL 09/29/2024 2:56 PM EDT [facility] LDL/HDL Ratio 1.46 09/29/2024 2:56 PM EDT [facility] Blood Structure of left upper limb / Unknown Venipuncture / Unknown 09/29/2024 9:04 AM EDT 09/29/2024 9:04 AM EDT Narrative [facility] - 09/29/2024 2:56 PM EDT [...] MD LAB BLOOD ORDERABLES Final Resu lt [facility]
[address] [place] [address], * (ABNORMAL) POC Glycosylated Hemoglobin (Hb A1C) (09/29/2024 8:43 AM EDT) Hemoglobin A1C 6.5(A) 4.5 - 5.7 % [facility] Lot Number [id number] [facility] Expiration Date [facility] Blood 09/29/2024 8:43 AM EDT us Melina Jernigan MD POINT OF CARE TEST ORDERABLES F inal Result [facility]
[address] [place] [address], [place] [phone] * Mammo Diagnostic Digital Tomosynthesis Left With [...] localization and surgical excision were performed at [facility]. The calcifications were not obtained with either [...] Relevant to Health Maintenance Insurance Care Teams Manager Technical Support Relationship Specialty Start Date End Date Martha Nielsen APRN [address] [id number] PCP - General Family Medicine 09/29/24
--- OUTSIDE RECORDS SUMMARY | 2025-01-04 07:50 | XMS_ITS | Clinical Summary ---
Author Organization [facility] Address [address] [place] [address] Care Team Providers Care Newspaper Writer Name Role Phone Tien Wade MD Primary Care Provider + [phone] Allergies Active Allergy Reactions Criticality Noted Date [...] 10 DAYS 2 Active Continuous Blood Gluc Cumulative Effects Analyst (Dexcom G6 client support consultant) device USE DIRECTED TO TEST BLOOD GLUCOSE [...] Description 04/08/2025 9:20 AM EST Office Visit [facility] [address] [place] [address] Dawood Ahn MD [address] [place] [phone] Health Maintenance Due Date Last Done [...] 02/02/2019 12/08/2018 [facility]-Breast Cancer Screening 08/22/2019 08/21/2017 [id number] Vaccine ( season) 2024 03/01/2021, 08/31/2020, 08/03/2020 [...] Relevant to Health Maintenance Insurance Care Teams Newspaper Writer Relationship Specialty Start Date End Date Tien Wade MD [address] [place] [address] PCP - General 10/13/20
--- OUTSIDE RECORDS SUMMARY | 2025-01-04 07:51 | XMS_ITS | Encounter Summary ---
Author Organization [facility] Address [address] [place] [address] Care Team Providers Care Jackscrew Worker Name Role Phone Martha Nielsen APRN Primary Care Provider [phone] Encounter Details Date Type Department Care Team (Late st Contact Info) Description 09/30/2024 Results Follow-Up [facility] ENDOCRINOLOGY [address] [facility] [address] [place] [phone] Melina Jernigan MD [address] [place] [phone] Social History Tobacco Use Types Packs/Day [...] Description 02/03/2025 9:30 AM EDT Office Visit [facility] ENDOCRIN[facility] [address] [place] [address] Melina Jernigan MD [facility] [phone] documented as of this encounter Visit Diagnoses Not on filedocumented in this encounter Care Teams Jackscrew Worker Relationship Specialty Start Date End Date Martha Nielsen APRN [address] [place] [address] PCP - General Family Medicine 09/29/24 documented as of this encounter
--- NOTE | 2025-01-04 08:00 | NM_ITS ---
APPROVED REPORT Exam: Nuclear Stress Test Indication: Chest pain, HTN, High cholesterol, DM, Family history Patient Location: Outpatient Stress Tech: Maria Luz MELARA Tech:Joan Mcdonald, ARRT, RT (R)(N) Ht: 5 ft 6 in Wt: 230 lbs Bra Size: 42C HR: 54 bpm BP: 119/66 mmHg BSA: 2.12 m2 TID: 1.32 BMI: 37.1 History: Chest pain, HTN, High cholesterol, DM, Family history Procedure: Patient received 0.4 mg of intravenous Lexiscan, resting heart rate 54 bpm, resting blood pressure 119/66 mmHg, with Lexiscan maximum heart rate achieved was 107 bpm which is % of the maximum predicted heart rate and blood pressure was 148/72 mmHg. With Lexiscan, patient denied any complaint of chest pain. Cardiac Stress and Resting SPECT Images: Cardiac Stress and Resting SPECT images were obtained using technetium 99m Myoview 32.0 mCi stress and 10.68 mCi at rest. Resting and stress imaging in supine and prone positions demonstrate no evidence of focal fixed or reversible perfusion defects. There is increase in transient ischemic dilatation ratio (TID 1.32), which may be suggestive of possible multivessel disease or balanced ischemia. Gated imaging demonstrates normal global LV systolic function. LVEF is calculated at 67%. Conclusion: No evidence of focal fixed or reversible perfusion defects. There is increase in transient ischemic dilatation ratio (TID 1.32), which may be suggestive of possible multivessel disease or balanced ischemia. Gated imaging demonstrates normal global LV systolic function. LVEF is calculated at 67%. Electronically signed by : Liat Donohue MD 01/04/2025 20:21:38
[2025-01-04] MEDS: SODIUM CHLORIDE 0.9% 10ML SYR (RAD ONLY) 10 ML IV ×2 (09:24)
[2025-01-04] MEDS: ISOTOPE MYOVIEW (PER STUDY) 1 DOSE IV (09:24)
--- NOTE | 2025-01-04 10:30 | CA_ITS ---
APPROVED REPORT EXAM: Comprehensive 2D, Doppler, and color-flow Echocardiogram Java Programming Professor: Yari Leyva RT(R) Ht: 5 ft 6 in Wt: 235lbs BSA: 2.14 BP: 126/84 mmHg Indications: chest pain 2D Dimensions LVEF (Price's) 63.80 % F: 54 - 74 LV Volume 93.00 mL F: 46 - 106 LV Volume Index 43.5 mL/m2 F: 29 - 61 LA Volume 23.60 mL LA Volume Index 11.03 mL/m2 (M/F) 16-34 EF AP4 68.20 % EF AP2 59.0 % EF BP 63.8 % GL Strain -18.9 % M-Mode Dimensions RVDd 2.98 cm (0.9-2.6) LA Diam 3.62 cm (1.9-4.0) LVDd 4.41 cm (3.5-5.7) LVDs 3.21 cm (3.5-5.7) IVSd 0.91 cm (0.6-1.1) PWd 0.75 cm (0.6-1.1) EF (Teich) 53.20% FS 27.20% EDV (Teich) 88.20 mL ESV (Teich) 41.30 mL LV Diastology E Decel Time 223 (160-240 msec) E/A Ratio 1.2 Mitral Valve MV E Max Cole. 85.0 (40-130 cm/s) MV A Velocity 71.0 (40-130 cm/s) E/A Ratio 1.19 MV PHT 65.0 ms Left Ventricle The left ventricle is normal size. Left ventricular systolic function is normal. The left ventricular ejection fraction is within the normal range. There is normal left ventricular wall thickness. There is normal LV segmental wall motion. The left ventricular diastolic function is normal. LVEF is 55% Right Ventricle The right ventricle is normal size. The right ventricular systolic function is normal. Atria Left atrium is mildly dilated. Right atrium is mildly dilated. There is no color Doppler evidence of interatrial shunt. Aortic Valve The aortic valve is mildly thickened. There is no hemodynamically significant aortic valvular stenosis. No aortic regurgitation is present. Mitral Valve The mitral valve is normal in structure. No evidence of mitral valve stenosis. Trace mitral regurgitation is present. Tricuspid Valve The tricuspid valve leaflets are thin and pliable. Trace tricuspid regurgitation. There is insufficient TR jet to estimate RVSP. Pulmonic Valve The pulmonary valve is grossly normal in structure. Trace pulmonic valve regurgitation is present. Great Vessels The aortic root is normal in size. IVC is normal in size and collapses >50% with inspiration. Pericardium There is no pericardial effusion. Other Information Study Quality: Fair Conclusion Normal biventricular systolic function. Mild biatrial dilation. No significant valvular stenosis or regurgitation. Electronically signed by : Liat Donohue MD 01/04/2025 19:38:08
== END 2025-01-04 23:59 | disposition home or self-care (01) ==
LOC: RAD 07:48
PROVIDERS: PCP Family Medicine; Visit Provider Family Medicine
DX: R06.09 Other forms of dyspnea (principal); R07.89 Other chest pain; R53.83 Other fatigue; I20.89 Other forms of angina pectoris; I10 Essential (primary) hypertension; E11.8 Type 2 diabetes mellitus with unspecified complications; Z79.4 Long term (current) use of insulin; F41.9 Anxiety disorder, unspecified
CPT/HCPCS: 78452; 93016; 93017; 93018; 93306; A9502; J2785

== ENCOUNTER 2025-01-17 08:04 | Day surgery (SDC) | payer MEDICARE, MEDICAID, SELFPAY ==
[2025-01-17] VITALS (12 sets, daily range): BP systolic 85–122; BP diastolic 52–66; PULSE 70–100; RESP 18–20; O2SAT 90–97; BMI 37.1; BMI 40.6
--- NOTE | 2025-01-17 07:07 | IR_ITS ---
APPROVED REPORT Patient Location: Outpatient Clinic Lpn: Tien Cabral, RT (R) PROCEDURES Left heart catheterization Left ventriculogram Selective coronary angiogram INDICATION Abnormal Myoview, Angina pectoris Informed consent was obtained prior to the procedure. COMPLICATIONS NONE Estimated Blood Loss: LESS THAN 10 ML TECHNIQUE One percent lidocaine used to anesthetize the right anterior aspect of the wrist. The right radial artery was accessed via the Seldinger technique. A 6 Tajik sheath was placed in the right radial artery. 2.5 mg of Verapamil, 800 mcg of nitroglycerin, 1mg Lidocaine and 5000 U Heparin were given through the arterial sheath. The JL3 catheter was also used to perform left heart catheterization, left ventriculogram and selective coronary angiogram. At the end of the procedure the sheath was removed good hemostasis was achieved using Traclet band, patient was transferred to the postop holding area in stable condition. ANGIOGRAPHIC RESULTS The left main artery Normal The left anterior descending artery Normal The circumflex artery Normal The right coronary artery Dominant normal The AVELAR ventriculogram reveals Not performed The left ventricular end-diastolic pressure Not measured IMPRESSION Normal coronary arteries PLAN 1. Consider cardiac MRI given renal failure and diastolic dysfunction Electronically signed by : Shar Villa MD 01/17/2025 11:27:51
[2025-01-17 08:50] LABS: Chloride 102 mmol/L (98-107); Potassium 3.6 mmoL/L (3.5-5.1); Sodium 139 mmol/L (136-145)
[2025-01-17 08:53] LABS: Anion Gap 16.6 mEq/L (5-15); Blood Urea Nitrogen 21 mg/dl (7-17); Carbon Dioxide 24 mmol/L (22.0-30.0); Creatinine Clearance Estimated 76 mL/min (50-200); Creatinine,Serum 1.60 mg/dl (0.52-1.04); Estimated Glomerular Filt Rate 33 ml/min (>60); GFR (African American) 40 ML/MIN (>60)
[2025-01-17 08:54] LABS: Calcium 10.2 mg/dl (8.4-10.2); Glucose 149 mg/dl (74-100)
[2025-01-17 08:56] LABS: Hematocrit 44.7 % (37.0-47.0); Hemoglobin 15.3 g/dL (12.2-16.2); Immature Granulocytes % 0.3 %; Mean Corpuscular HGB Conc 34.2 g/dL (31.8-35.4); Mean Corpuscular Hemoglobin 30.4 pg (27.0-31.2); Mean Corpuscular Volume 88.7 fl (81-99); Nucleated Red Blood Cells % 0 %; Platelet Count 295 K/mm3 (142-424); Red Blood Count 5.04 M/mm3 (4.20-5.40); Red Cell Distribution Width-SD 40.5 fL; White Blood Count 9.7 K/mm3 (4.8-10.8)
[2025-01-17] MEDS: VERAPAMIL 2.5MG/ML 2ML VIAL 2.5 MG IV (10:45)
[2025-01-17] MEDS: HEPARIN 1,000 UNITS/500ML NS (CATH LAB) 3000 UNIT IV (10:45)
[2025-01-17] MEDS: HEPARIN 1,000 UNITS/ML 10ML VIAL (CATH LAB) 5000 UNIT IV (10:46)
[2025-01-17] MEDS: LIDOCAINE 1% 10ML MDV 10 ML IJ (10:46)
[2025-01-17] MEDS: NITROGLYCERIN 800MCG/8ML SYR (CATH LAB) 800 MCG IA (10:46)
[2025-01-17] MEDS: 0.9 % SODIUM CHLORIDE 500 ML 25 ML IV (10:46)
[2025-01-17] MEDS: MIDAZOLAM HCL 1MG/ML 5ML VIAL 1 MG IV (10:47)
[2025-01-17] MEDS: FENTANYL 100MCG/2ML VIAL 50 MCG IV (10:47)
--- NOTE | 2025-01-17 11:42 | SUR.PHASEII ---
PATIENT TRANSFERRED TO ICU FOR RECOVERY AND DISCHARGED
[2025-01-17] MEDS: IOPAMIDOL-370 (76%);100ML BOTTLE 50 ML IV (16:47)
== END 2025-01-17 14:50 | disposition home or self-care (01) ==
PROVIDERS: PCP Family Medicine; Visit Provider Internal Medicine
PROC: 4A023N7 Measurement of Cardiac Sampling and Pressure, Left Heart, Percutaneous Approach (ICD-10-PCS; CPT 93452; principal; 2025-01-17 11:30)
DX: I20.89 Other forms of angina pectoris (principal); I10 Essential (primary) hypertension; R93.1 Abnormal findings on diagnostic imaging of heart and coronary circulation; R06.02 Shortness of breath; E78.2 Mixed hyperlipidemia; E66.9 Obesity, unspecified; Z68.41 Body mass index [BMI] 40.0-44.9, adult; R53.83 Other fatigue; G47.39 Other sleep apnea; H91.93 Unspecified hearing loss, bilateral; Z79.85 Long-term (current) use of injectable non-insulin antidiabetic drugs; Z79.890 Hormone replacement therapy; Z79.4 Long term (current) use of insulin; Z79.84 Long term (current) use of oral hypoglycemic drugs; Z79.82 Long term (current) use of aspirin; Z79.899 Other long term (current) drug therapy; Z88.8 Allergy status to other drugs, medicaments and biological substances; Z82.49 Family history of ischemic heart disease and other diseases of the circulatory system
CPT/HCPCS: 80048; 85025; 93458; 99152; C1725; C1769; J1200; J1644; J2003; J3010; J7040; Q9967

== ENCOUNTER 2025-01-28 10:24 | Outpatient (CLI) | payer MEDICARE, MEDICAID, SELFPAY ==
[2025-01-28 15:31] LABS: Hemoglobin A1C 7.2 % (4.0-6.0)
[2025-01-28 15:48] LABS: Chloride 101 mmol/L (98-107)
[2025-01-28 15:49] LABS: Albumin Level 4.8 g/dl (3.5-5.0); Potassium 4.1 mmoL/L (3.5-5.1); Sodium 134 mmol/L (136-145)
[2025-01-28 15:51] LABS: Blood Urea Nitrogen 21 mg/dl (7-17); Creatinine,Serum 1.30 mg/dl (0.52-1.04); Estimated Glomerular Filt Rate 42 ml/min (>60); GFR (African American) 51 ML/MIN (>60)
[2025-01-28 15:52] LABS: Alanine Aminotransferase 64 U/L (12-78); Albumin/Globulin Ratio 1.6 (1.1-1.8); Alkaline Phosphatase 125 U/L (38-126); Anion Gap 16.1 mEq/L (5-15); Aspartate Amino Transferase 93 U/L (14-36); Bilirubin,Total 1.0 mg/dl (0.2-1.3); Calcium 10.6 mg/dl (8.4-10.2); Carbon Dioxide 21 mmol/L (22.0-30.0); Globulin 3.0 g/dL (1.3-3.2); Glucose 181 mg/dl (74-100); Total Protein,Serum 7.8 g/dl (6.3-8.2)
--- OUTSIDE RECORDS SUMMARY | 2025-01-31 10:26 | XMS_ITS | Clinical Summary ---
Author Organization [facility] Address [address] [place] [address] Care Team Providers Care China Decorator Name Role Phone Tien Wade MD Primary Care Provider + [phone] Allergies Active Allergy Reactions Criticality Noted Date [...] 10 DAYS 2 Active Continuous Blood Gluc Mine Technician (Dexcom G6 chief compliance officer) device USE DIRECTED TO TEST BLOOD GLUCOSE [...] Description 04/08/2025 9:20 AM EST Office Visit [facility] [address] [place] [address] Dawood Ahn MD [address] [place] [phone] Health Maintenance Due Date Last Done [...] 02/02/2019 12/08/2018 [facility]-Breast Cancer Screening 08/22/2019 08/21/2017 [id number] Vaccine ( season) 2024 03/01/2021, 08/31/2020, 08/03/2020 [...] EDT us Historical Provider LAB BLOOD ORDERABLES Final R esult SUNQUEST from Last 3 Months or Most Recently Relevant to Health Maintenance Insurance Care Teams China Decorator Relationship Specialty Start Date End Date Tien Wade MD [address] [place] [address] PCP - General 10/13/20
--- OUTSIDE RECORDS SUMMARY | 2025-01-31 10:26 | XMS_ITS | Encounter Summary ---
Author Organization [facility] Address [address] [place] [address] Care Team Providers Care Certified Respiratory Therapist Name Role Phone Tien Wade MD Primary Care Provider [phone] Encounter Details Date Type Department Care Team (Late st Contact Info) Description 05/10/2021 [facility] [address] [place] [address] Tien Wade MD [address] [place] [address] Bulging lumbar disc (Primary Dx) [...] [facility] [address] [place] [phone] Dawood Ahn MD [address] [place] [address] documented as of this encounter Visit Diagnoses Diagnosis Bulging lumbar disc- Primary documented in this encounter Care Teams Certified Respiratory Therapist Relationship Specialty Start Date End Date Tien Wade MD [address] [place] [address] PCP - General 10/13/20 documented as of this encounter
--- OUTSIDE RECORDS SUMMARY | 2025-01-31 10:26 | XMS_ITS | Encounter Summary ---
Author Organization [facility] Address [address] [place] [address] Care Team Providers Care Security Trainer Name Role Phone Martha Nielsen APRN Primary Care Provider [phone] Encounter Details Date Type Department Care Team ([facility] st Contact Info) Description 09/30/2024 Results Follow-Up [facility] ENDOCRINOLOGY [address] [facility] [address] [place] [address] Melina Jernigan MD [address] [facility] [address] [place] [address] Social History Tobacco Use Types Packs/Day Years [...] as of this encounter Plan of Treatment Not on file documented as of this encounter Visit Diagnoses Not on filedocumented in this encounter Care Teams Security Trainer Relationship Specialty Start Date End Date Martha Nielsen APRN [address] [place] [address] PCP - General Family Medicine 09/29/24 documented as of this encounter
--- OUTSIDE RECORDS SUMMARY | 2025-01-31 10:26 | XMS_ITS | Clinical Summary ---
Author Organization [facility] ystem Address [address] [place] [address] Care Team Providers Care Automatic Hemmer Name Role Phone Martha Nielsen APRN Primary Care Provider [phone] Allergies Active Allergy Reactions Criticality Noted Date [...] by mouth Daily. Active Advocate Insulin Pen [place] 31G X 8 MM misc See Admin Instructions. 2 Active Levonorgestrel (MIRENA) [...] Active Continuous Glucose Sensor (Dexcom G7 Sensor) [facility] USE DIRECTED TO TEST BLOOD GLUCOSE LEVEL CHANGE SENSOR EVERY 10 DAYS 3 each 5 5 Active Active Problems No known active problems Immunizations Immunization Administration Dates Next Due 31-influenza Vac Quardvalent Preservativ 016,03/23/2015 DTaP, Unspecified 08/31/2009 Fluzone (or Fluarix & Flulav al for VFC) >6mos 03/12/2022,04/10/2021,03/03/2020 Hepatitis A 06/09/2018 Influenza Injectable Mdck Pf Quad 04/28/2023 Influenza Seasonal Injectable 02/17/2018, 014 Pneumococcal Polysaccharide (PPSV23) 04/11/2016 Tdap 12/10/2019 Zostavax 12/08/2018 Family History Medical History Relation Name Comments Heart disease Father [place] Hypertension Father [place] Obesity Father Gabby Kidney disease Maternal Aunt 1 None Kidney disease Maternal Aunt 2 Marissa [place] Diabetes Maternal Uncle None Kidney disease Maternal Uncle None Hypertension Mother Leandra Thyroid disease Mother Leandra Kidney disease Paternal Aunt 1 None Kidney disease Paternal Aunt 2 [place] Kidney disease Paternal Aunt 3 JD2 Diabetes Paternal Uncle 1 None Kidney disease Paternal Uncle 1 None Diabetes Paternal Uncle 2 Dax Kidney disease Paternal Uncle 2 [place] Diabetes Paternal Uncle 3 [place] Kidney disease Paternal Uncle 3 [place] Breast cancer Sister 1 Daphne Cancer Sister 1 Daphne Fibromyalgia Sister 1 Daphne Relation Name Status Comments Daughter Margret Alive Father [place] Maternal Aunt 1 None Maternal Aunt 2 Marissa alcal[place] Maternal Uncle None Mother Leandra Paternal Aunt 1 None Paternal Aunt 2 [place] Paternal Aunt 3 JD2 Paternal Uncle 1 None Paternal Uncle 2 Dax Paternal Uncle 3 [place] Sister 1 Daphne Alive Sister 2 Damaris [...] 09/29/2024 8:30 AM EDT Plan of Treatment Health Maintenance Due Date Last Done Comments [...] exists ANNUAL WELLNESS VISIT 06/13/2022 COVID-19 Vaccine (2023- 5 season) 2024 03/01/2021, 08/31/2020, 08/03/2020 INFLUENZA [...] - 200 mg/dL 09/29/2024 2:56 PM EDT [facility] Triglycerides 112 0 - 150 mg/dL 09/29/2024 2:56 PM EDT [facility] HDL Cholesterol 43 40 - 60 mg/dL 09/29/2024 2:56 PM EDT [facility] LDL Cholesterol 65 0 - 100 mg/dL 09/29/2024 2:56 PM EDT [facility] VLDL Cholesterol 20 5 - 40 mg/dL 09/29/2024 2:56 PM EDT [facility] LDL/HDL Ratio 1.46 09/29/2024 2:56 PM EDT [facility] Blood Structure of left upper limb / Unknown Venipuncture / Unknown 09/29/2024 9:04 AM EDT 09/29/2024 9:04 AM EDT [facility] - 09/29/2024 2:56 PM EDT Cholesterol [...] MD LAB BLOOD ORDERABLES Final Resu lt [facility]
[address] [place] [address], [place] [phone] * (ABNORMAL) POC Glycosylated Hemoglobin (Hb A1C) (09/29/2024 8:43 AM EDT) Hemoglobin A1C 6.5(A) 4.5 - 5.7 % [facility] Lot Number [id number] [facility] Expiration Date [facility] Blood 09/29/2024 8:43 AM EDT us Melina Jernigan MD POINT OF CARE TEST ORDERABLES F inal Result Performing Organization Address City/[facility]/ZIP Co de Phone Number [facility]
[address] [place] [address], [place] [phone] * Mammo Diagnostic Digital Tomosynthesis Left With [...] localization and surgical excision were performed at [facility]. The calcifications were not obtained [...] mammographic findings are identified. Salvador Ivan MD IM MAMMOGRAPHY ORDERABLES F inal Result from Last 3 Months or Most Recently Relevant to Health Maintenance Insurance MEDICARE ADVANTAGE [facility] HMO Care Teams Automatic Hemmer Relationship Specialty Start Date End Date Martha Nielsen APRN [address] [place] [address] PCP - General Family Medicine 09/29/24
== END 2025-01-28 23:59 ==
LOC: LAB.DROPOF 01-31 10:25
PROVIDERS: PCP Family Medicine; Visit Provider Family Medicine
DX: E11.9 Type 2 diabetes mellitus without complications (principal)
CPT/HCPCS: 80053; 83036

== ENCOUNTER 2025-02-07 10:17 | Outpatient (CLI) | payer MEDICARE, MEDICAID, SELFPAY ==
--- OUTSIDE RECORDS SUMMARY | 2025-02-07 10:19 | XMS_ITS | Clinical Summary ---
Author Organization [facility] Address [address] [place] [address] Care Team Providers Care Hhas Name Role Phone Tien Wade MD Primary Care Provider + [phone] Allergies Active Allergy Reactions Criticality Noted Date [...] 10 DAYS 2 Active Continuous Blood Gluc Power And Recovery Supervisor (Dexcom G6 ward maid) device USE DIRECTED TO TEST BLOOD GLUCOSE [...] 9:20 AM EST Office Visit [facility] [address] [place] [address] Dawood Ahn MD [address] [place] [phone] Health Maintenance Due Date Last Done Comments [facility]-Depression Screening 1966 [facility]-Diabetes: Hemoglobin A1C 1966, 09/23/2023, 05/09/2023, Additional history exists [facility]-HIV Screening 1966 [facility]-Medicare Annual Wellness (AWV) [...] 02/02/2019 12/08/2018 [facility]-Breast Cancer Screening 08/22/2019 08/21/2017 [id number] Vaccine ( season) 2025 03/01/2021, 08/31/2020, 08/03/2020 [facility]-Influenza Vaccine (#1) 01/31/202503/17, [...] Recently Relevant to Health Maintenance Insurance MEDICARE Care Teams Hhas Relationship Specialty Start Date End Date Tien Wade MD [address] [place] [address] PCP - General 10/13/20
--- OUTSIDE RECORDS SUMMARY | 2025-02-07 10:19 | XMS_ITS | Clinical Summary ---
Author Organization [facility] ystem Address [address] [place] [address] Care Team Providers Care Ward Supervisor Name Role Phone Martha Nielsen APRN Primary Care Provider [phone] Allergies Active Allergy Reactions Criticality Noted Date [...] by mouth Daily. Active Advocate Insulin Pen [place] 31G X 8 MM misc See Admin [...] Active Continuous Glucose Sensor (Dexcom G7 Sensor) [facility] [place] USE DIRECTED TO TEST [...] Comments Heart disease Father Gabby Hypertension Father [place] Obesity Father Gabby Kidney disease Maternal Aunt 1 None Kidney disease Maternal Aunt 2 Marissa alcala Diabetes Maternal Uncle None Kidney disease Maternal Uncle None Hypertension Mother Leandra Thyroid disease Mother Leandra Kidney disease Paternal Aunt 1 None Kidney disease Paternal Aunt 2 [place] Kidney disease Paternal Aunt 3 JD2 Diabetes Paternal Uncle 1 None Kidney disease Paternal Uncle 1 None Diabetes Paternal Uncle 2 Dax Kidney disease Paternal Uncle 2 Dax Diabetes Paternal Uncle 3 [place] Kidney disease Paternal Uncle 3 [place] Breast cancer Sister 1 Daphne Cancer Sister 1 Daphne Fibromyalgia Sister 1 Daphne Relation Name Status Comments Daughter Margret Alive Father [place] Maternal Aunt 1 None Maternal Aunt 2 Marissa alcala Maternal Uncle None Mother Leandra Paternal Aunt 1 None Paternal Aunt 2 [place] Paternal Aunt 3 JD2 Paternal Uncle 1 None Paternal Uncle 2 Dax Paternal Uncle 3 [place] Sister 1 Daphne Alive Sister 2 Damaris [...] exists ANNUAL WELLNESS VISIT 06/13/2022 COVID-19 Vaccine (2024- 6 season) 2025 03/01/2021, 08/31/2020, 08/03/2020 INFLUENZA VACCINE 03/02/2025 03/17/2024, [...] - 200 mg/dL 09/29/2024 2:56 PM EDT [facility] Triglycerides 112 0 - 150 mg/dL 09/29/2024 2:56 PM EDT [facility] HDL Cholesterol 43 40 - 60 mg/dL 09/29/2024 2:56 PM EDT [facility] LDL Cholesterol 65 0 - 100 mg/dL 09/29/2024 2:56 PM EDT [facility] VLDL Cholesterol 20 5 - 40 mg/dL 09/29/2024 2:56 PM EDT [facility] LDL/HDL Ratio 1.46 09/29/2024 2:56 PM EDT [facility] Blood Structure of left upper limb / Unknown Venipuncture / Unknown 09/29/2024 9:04 AM EDT 09/29/2024 9:04 AM EDT [facility] - 09/29/2024 2:56 PM EDT Cholesterol [...] MD LAB BLOOD ORDERABLES Final Resu lt [facility]
[address] [place] [address], [place] [phone] * (ABNORMAL) POC Glycosylated Hemoglobin (Hb A1C) (09/29/2024 8:43 AM EDT) Hemoglobin A1C 6.5(A) 4.5 - 5.7 % [facility] Lot Number [id number] [facility] Expiration Date [facility] Blood 09/29/2024 8:43 AM EDT us Melina Jernigan MD POINT OF CARE TEST ORDERABLES F inal Result Performing Organization Address City/[facility]/ZIP Co de Phone Number [facility]
[address] [place] [address], [place] [phone] * Mammo Diagnostic Digital Tomosynthesis Left With [...] localization and surgical excision were performed at [facility]. The calcifications were not obtained with either [...] Relevant to Health Maintenance Insurance MEDICARE ADVANTAGE [facility] HMO Care Teams Ward Supervisor Relationship Specialty Start Date End Date Martha Nielsen APRN [address] [place] [address] PCP - General Family Medicine 09/29/24
--- OUTSIDE RECORDS SUMMARY | 2025-02-07 10:19 | XMS_ITS | Encounter Summary ---
[facility] Address [address] [place] [address] Care Team Providers Care Project Specialist Name Role Phone Martha Nielsen APRN Primary Care Provider [phone] Encounter Details Date Type Department Care Team ([facility] st Contact Info) Description 09/30/2024 Results Follow-Up [facility] MEDICAL [facility] ENDOCRINOLOGY [address] [facility] [address] [place] [address] Melina Jernigan MD [address] [facility] [address] [place] [address] Social History Tobacco Use Types Packs/Day Years [...] on filedocumented in this encounter Care Teams Project Specialist Relationship Specialty Start Date End Date Martha Nielsen APRN [address] [place] [address] PCP - General Family Medicine 09/29/24 documented as of this encounter
--- OUTSIDE RECORDS SUMMARY | 2025-02-07 10:19 | XMS_ITS | Encounter Summary ---
Author Organization [facility] Address [address] [place] [address] Care Team Providers Care Clinical Informatics Specialist Name Role Phone Tien Wade MD Primary Care Provider [phone] Encounter Details Date Type Department Care Team (Late st Contact Info) Description 05/10/2021 Community [facility] [address] [place] [address] Tien Wade MD [address] [place] [address] Bulging lumbar disc (Primary Dx) [...] Description 04/08/2025 9:20 AM EST Office Visit [facility] [address] [place] [address] Dawood Ahn MD [address] [place] [address] documented as of this encounter Visit Diagnoses Diagnosis Bulging lumbar disc- Primary documented in this encounter Care Teams Clinical Informatics Specialist Relationship Specialty Start Date End Date Tien Wade MD [address] [place] [address] PCP - General 10/13/20 documented as of this encounter
[2025-02-07 11:08] LABS: Chloride 100 mmol/L (98-107)
[2025-02-07 11:09] LABS: Potassium 4.1 mmoL/L (3.5-5.1); Sodium 138 mmol/L (136-145)
[2025-02-07 11:11] LABS: Blood Urea Nitrogen 21 mg/dl (7-17); Creatinine,Serum 1.50 mg/dl (0.52-1.04); Estimated Glomerular Filt Rate 36 ml/min (>60); GFR (African American) 43 ML/MIN (>60)
[2025-02-07 11:12] LABS: Anion Gap 15.1 mEq/L (5-15); Calcium 10.6 mg/dl (8.4-10.2); Carbon Dioxide 27 mmol/L (22.0-30.0); Glucose 259 mg/dl (74-100)
== END 2025-02-07 23:59 | disposition home or self-care (01) ==
LOC: LAB 10:18
PROVIDERS: PCP Family Medicine; Visit Provider Physician Assistant
DX: I10 Essential (primary) hypertension (principal)
CPT/HCPCS: 36415; 80048

== ENCOUNTER 2025-02-08 07:33 | Outpatient (CLI) | payer MEDICARE, MEDICAID, SELFPAY ==
--- OUTSIDE RECORDS SUMMARY | 2025-02-08 07:36 | XMS_ITS | Clinical Summary ---
Author Organization [facility] Address [address] [place] [address] Care Team Providers Care Restaurant Associate Name Role Phone Tien Wade MD Primary Care Provider [phone] Allergies Active Allergy Reactions Criticality Noted Date [...] 10 DAYS 2 Active Continuous Blood Gluc Provider Relations Coordinator (Dexcom G6 poultice machine operator) device USE DIRECTED TO TEST BLOOD GLUCOSE [...] 9:20 AM EST Office Visit [facility] [address] [place] [address] Dawood Ahn MD [address] [place] [address] Health Maintenance Due Date Last Done Comments [facility]-Depression Screening 1966 [facility]-HIV Screening 1966 [facility]-Medicare Annual Wellness [...] 02/02/2019 12/08/2018 [facility]-Breast Cancer Screening 08/22/2019 08/21/2017 [facility]-Diabetes: Hemoglobin A1C 04/21/2024, 09/23/2023, 05/09/2023, Additional history exists [id number] Vaccine ( season) 2025 03/01/2021, 08/31/2020, 08/03/2020 [...] Most Recently Relevant to Health Maintenance Insurance [employer] Care Teams Restaurant Associate Relationship Specialty Start Date End Date Tine Wade MD [address] [place] [address] PCP - General 10/13/20
--- OUTSIDE RECORDS SUMMARY | 2025-02-08 07:36 | XMS_ITS | Encounter Summary ---
[facility] Address [address] [place] [address] Care Team Providers Care Popcorn Candy Maker Name Role Phone Martha Nielsen APRN Primary Care Provider [phone] Encounter Details Date Type Department Care Team ([facility] st Contact Info) Description 09/30/2024 Results Follow-Up [facility] [address] [facility] [address] [place] [address] Melina Jernigan MD [address] [facility] [address] [place] [address] Social History Tobacco Use Types Packs/Day Years [...] on filedocumented in this encounter Care Teams Popcorn Candy Maker Relationship Specialty Start Date End Date Martha Nielsen APRN [address] [place] [address] PCP - General Family Medicine 09/29/24 documented as of this encounter
--- OUTSIDE RECORDS SUMMARY | 2025-02-08 07:36 | XMS_ITS | Encounter Summary ---
Author Organization [facility] Address [address] [place] [address] Care Team Providers Care Energy Professional Name Role Phone Tien Wade MD Primary Care Provider [phone] Encounter Details Date Type Department Care Team (Late st Contact Info) Description 05/10/2021 Community [facility] Community Practice [address] [place] [address] Tien Wade MD [address] [place] [address] Bulging lumbar disc (Primary Dx) [...] Description 04/08/2025 9:20 AM EST Office Visit [facility] [address] [place] [address] Dawood Ahn MD [address] [place] [address] documented as of this encounter Visit Diagnoses Diagnosis Bulging lumbar disc- Primary documented in this encounter Care Teams Energy Professional Relationship Specialty Start Date End Date Tien Wade MD [address] [place] [address] PCP - General 10/13/20 documented as of this encounter
--- OUTSIDE RECORDS SUMMARY | 2025-02-08 07:36 | XMS_ITS | Clinical Summary ---
Author Organization [facility] ystem Address [address] [place] [address] Care Team Providers Care Child Center Assistant Name Role Phone Martha Nielsen APRN Primary Care Provider [phone] Allergies Active Allergy Reactions Criticality Noted Date [...] by mouth Daily. Active Advocate Insulin Pen [place] 31G X 8 MM misc See Admin [...] Active Continuous Glucose Sensor (Dexcom G7 Sensor) [facility] [place] USE DIRECTED TO TEST BLOOD GLUCOSE LEVEL [...] Comments Heart disease Father Gabby Hypertension Father [place] Obesity Father Gabby Kidney disease Maternal Aunt 1 None Kidney disease Maternal Aunt 2 Marissa [place] Diabetes Maternal Uncle None Kidney disease Maternal Uncle None Hypertension Mother Leandra Thyroid disease Mother Leandra Kidney disease Paternal Aunt 1 None Kidney disease Paternal Aunt 2 [place] Kidney disease Paternal Aunt 3 JD2 Diabetes Paternal Uncle 1 None Kidney disease Paternal Uncle 1 None Diabetes Paternal Uncle 2 Dax Kidney disease Paternal Uncle 2 [place]ax Diabetes Paternal Uncle 3 [place] Kidney disease Paternal Uncle 3 [place] Breast cancer Sister 1 Daphne Cancer Sister 1 Daphne Fibromyalgia Sister 1 Daphne Relation Name Status Comments Daughter Margret Alive Father [place] Maternal Aunt 1 None Maternal Aunt 2 Marissa alcal[place] Maternal Uncle None Mother Leandra Paternal Aunt 1 None Paternal Aunt 2 [place] Paternal Aunt 3 JD2 Paternal Uncle 1 None Paternal Uncle 2 Dax Paternal Uncle 3 [place] Sister 1 Daphne Alive Sister 2 Damaris [...] - 200 mg/dL 09/29/2024 2:56 PM EDT [facility] Triglycerides 112 0 - 150 mg/dL 09/29/2024 2:56 PM EDT [facility] HDL Cholesterol 43 40 - 60 mg/dL 09/29/2024 2:56 PM EDT [facility] LDL Cholesterol 65 0 - 100 mg/dL 09/29/2024 2:56 PM EDT [facility] VLDL Cholesterol 20 5 - 40 mg/dL 09/29/2024 2:56 PM EDT [facility] LDL/HDL Ratio 1.46 09/29/2024 2:56 PM EDT [facility] Blood Structure of left upper limb / Unknown Venipuncture / Unknown 09/29/2024 9:04 AM EDT 09/29/2024 9:04 AM EDT [facility] - 09/29/2024 2:56 PM EDT [...] MD LAB BLOOD ORDERABLES Final Resu lt [facility]
[address] [place] [address], [place] [phone] * (ABNORMAL) POC Glycosylated Hemoglobin (Hb A1C) (09/29/2024 8:43 AM EDT) Hemoglobin A1C 6.5(A) 4.5 - 5.7 % [facility] Lot Number [id number] [facility] Expiration Date [facility] Blood 09/29/2024 8:43 AM EDT us Melina Jernigan MD POINT OF CARE TEST ORDERABLES F inal Result Performing Organization Address City/[facility]/ZIP Co de Phone Number [facility]
[address] [place] [address], [place] [phone] * Mammo Diagnostic Digital Tomosynthesis Left With [...] localization and surgical excision were performed at [facility]. The calcifications were not obtained with [...] Relevant to Health Maintenance Insurance MEDICARE ADVANTAGE [facility] HMO Care Teams Child Center Assistant Relationship Specialty Start Date End Date Marhta Nielsen APRN [address] [place] [address] PCP - General Family Medicine 09/29/24
--- NOTE | 2025-02-08 08:00 | US_ITS ---
FINAL REPORT TECHNIQUE: Sonographic images of the right upper quadrant were obtained. CLINICAL HISTORY: elevated lft COMPARISON: None FINDINGS: PANCREAS: The head of the pancreas is unremarkable in appearance, while the tail of the pancreas is obscured by overlying bowel gas. LIVER: There is fatty infiltration of the liver. No focal hepatic lesion. No intrahepatic biliary ductal dilatation. GALLBLADDER: No gallstones. No gallbladder wall thickening or pericholecystic fluid. COMMON DUCT: 4 mm. Normal for age. RIGHT KIDNEY: The right kidney measures 9.4 cm. There is no hydronephrosis, mass, or stone. FREE FLUID: None. IMPRESSION: Fatty infiltration of the liver is present. No gallstones are present, and no biliary ductal dilatation is identified. Reviewed, Interpreted and Dictated by Ita Smalls MD Transcribed by Katiana Gavin Authenticated and [facility]
== END 2025-02-08 23:59 | disposition home or self-care (01) ==
LOC: RAD 07:34
PROVIDERS: PCP Family Medicine; Visit Provider Family Medicine
DX: K76.0 Fatty (change of) liver, not elsewhere classified (principal); R74.8 Abnormal levels of other serum enzymes
CPT/HCPCS: 76705

== ENCOUNTER 2025-02-16 15:44 | Outpatient (CLI) | payer MEDICARE, MEDICAID, SELFPAY ==
--- OUTSIDE RECORDS SUMMARY | 2025-02-16 15:47 | XMS_ITS | Encounter Summary ---
Author Organization [facility] Address [address] [place] [address] Care Team Providers Care Caramel Candy Maker Name Role Phone Tien Wade MD Primary Care Provider [phone] Encounter Details Date Type Department Care Team (Late st Contact Info) Description 05/10/2021 Community [facility] Community Practice [address] [place] [address] Tien Wade MD [address] [place] [address] Bulging lumbar disc (Primary Dx) [...] 9:20 AM EST Office Visit [facility] [address] [place] [phone] Dawood Ahn MD [address] [place] [address] documented as of this encounter Visit Diagnoses Diagnosis Bulging lumbar disc- Primary documented in this encounter Care Teams Caramel Candy Maker Relationship Specialty Start Date End Date Tien Wade MD [address] [place] [address] PCP - General 10/13/20 documented as of this encounter
--- OUTSIDE RECORDS SUMMARY | 2025-02-16 15:47 | XMS_ITS | Encounter Summary ---
[facility] Address [address] [place] [address] Care Team Providers Care Internet Consultant Name Role Phone Martha Nielsen APRN Primary Care Provider [phone] Encounter Details Date Type Department Care Team ([facility] st Contact Info) Description 09/30/2024 Results Follow-Up [facility] MEDICAL [facility] ENDOCRINOLOGY [address] [facility] [address] [place] [address] Melina Jernigan MD [address] [facility] [address] [place] [address] Social History Tobacco Use Types Packs/Day Years [...] on filedocumented in this encounter Care Teams Internet Consultant Relationship Specialty Start Date End Date Martha Nielsen APRN [address] [place] [address] PCP - General Family Medicine 09/29/24 documented as of this encounter
--- OUTSIDE RECORDS SUMMARY | 2025-02-16 15:47 | XMS_ITS | Clinical Summary ---
Author Organization [facility] Address [address] [place] [address] Care Team Providers Care Spray Technician Name Role Phone Tien Wade MD Primary Care Provider [phone] Allergies Active Allergy Reactions Criticality Noted Date [...] 10 DAYS 2 Active Continuous Blood Gluc Tank Inspector (Dexcom G6 milieu technician) device USE DIRECTED TO TEST BLOOD GLUCOSE [...] Description 04/08/2025 9:20 AM EST Office Visit [facility] [address] [place] [address] Dawood Ahn MD [address] [place] [address] Health Maintenance Due Date Last Done [...] A1C 04/21/2024, 09/23/2023, 05/09/2023, Additional history exists [id number] Vaccine ( season) 2025 03/01/2021, 08/31/2020, 08/03/2020 [...] Health Maintenance Insurance [employer] Care Teams Spray Technician Relationship Specialty Start Date End Date Tien Wade MD [address] [place] [address] PCP - General 10/13/20
--- OUTSIDE RECORDS SUMMARY | 2025-02-16 15:47 | XMS_ITS | Clinical Summary ---
Author Organization [facility] ystem Address [address] [place] [address] Care Team Providers Care Ordained Minister Name Role Phone Martha Nielsen APRN Primary Care Provider [phone] Allergies Active Allergy Reactions Criticality Noted Date [...] by mouth Daily. Active Advocate Insulin Pen [place] 31G X 8 MM misc See Admin [...] Active Continuous Glucose Sensor (Dexcom G7 Sensor) [facility] [place] USE DIRECTED TO TEST BLOOD GLUCOSE LEVEL [...] Comments Heart disease Father Gabby Hypertension Father Gabby Obesity Father [place] Kidney disease Maternal Aunt 1 None Kidney disease Maternal Aunt 2 Marissa [place] Diabetes Maternal Uncle None Kidney disease Maternal Uncle None Hypertension Mother Leandra Thyroid disease Mother Leandra Kidney disease Paternal Aunt 1 None Kidney disease Paternal Aunt 2 [place] Kidney disease Paternal Aunt 3 JD2 Diabetes Paternal Uncle 1 None Kidney disease Paternal Uncle 1 None Diabetes Paternal Uncle 2 Dax Kidney disease Paternal Uncle 2 Dax Diabetes Paternal Uncle 3 [place] Kidney disease Paternal Uncle 3 [place] Breast cancer Sister 1 Daphne Cancer Sister 1 Daphne Fibromyalgia Sister 1 Daphne Relation Name Status Comments Daughter Margret Alive Father Gabby Maternal Aunt 1 None Maternal Aunt 2 Marissa [place] Maternal Uncle None Mother Leandra Paternal Aunt 1 None Paternal Aunt 2 [place] Paternal Aunt 3 JD2 Paternal Uncle 1 None Paternal Uncle 2 Dax Paternal Uncle 3 [place] Sister 1 Daphne Alive Sister 2 Damaris [...] - 200 mg/dL 09/29/2024 2:56 PM EDT [facility] Triglycerides 112 0 - 150 mg/dL 09/29/2024 2:56 PM EDT [facility] HDL Cholesterol 43 40 - 60 mg/dL 09/29/2024 2:56 PM EDT [facility] LDL Cholesterol 65 0 - 100 mg/dL 09/29/2024 2:56 PM EDT [facility] VLDL Cholesterol 20 5 - 40 mg/dL 09/29/2024 2:56 PM EDT [facility] LDL/HDL Ratio 1.46 09/29/2024 2:56 PM EDT [facility] Blood Structure of left upper limb / Unknown Venipuncture / Unknown 09/29/2024 9:04 AM EDT 09/29/2024 9:04 AM EDT [facility] - 09/29/2024 2:56 PM EDT Cholesterol [...] MD LAB BLOOD ORDERABLES Final Resu lt [facility]
[address] [place] [address], [place] [phone] * (ABNORMAL) POC Glycosylated Hemoglobin (Hb A1C) (09/29/2024 8:43 AM EDT) Hemoglobin A1C 6.5(A) 4.5 - 5.7 % [facility] Lot Number [id number] [facility] Expiration Date [facility] Blood 09/29/2024 8:43 AM EDT us Melina Jernigan MD POINT OF CARE TEST ORDERABLES F inal Result Performing Organization Address City/[facility]/ZIP Co de Phone Number [facility]
[address] [place] [address], [place] [phone] * Mammo Diagnostic Digital Tomosynthesis Left With [...] localization and surgical excision were performed at [facility]. The calcifications were not obtained with [...] Relevant to Health Maintenance Insurance MEDICARE ADVANTAGE [facility] HMO Care Teams Ordained Minister Relationship Specialty Start Date End Date Martha Nielsen APRN [address] [place] [address] PCP - General Family Medicine 09/29/24
[2025-02-17 11:52] LABS: RPR W/RFX Titers Nonreactive (Nonreactive)
== END 2025-02-16 23:59 | disposition home or self-care (01) ==
PROVIDERS: PCP Family Medicine; Visit Provider Obstetrics & Gynecology
DX: N76.5 Ulceration of vagina (principal); R87.613 High grade squamous intraepithelial lesion on cytologic smear of cervix (HGSIL)
CPT/HCPCS: 36415; 86592; 87491; 87529; 87591; 87661; 87798; 87801

== ENCOUNTER 2025-03-03 10:07 | Outpatient (CLI) | payer MEDICARE, MEDICAID, SELFPAY ==
--- OUTSIDE RECORDS SUMMARY | 2025-03-03 10:09 | XMS_ITS | Clinical Summary ---
Author Organization [facility] ystem Address [address] [place] [address] Care Team Providers Care Advertising Operations Coordinator Name Role Phone Martha Nielsen APRN Primary Care Provider [phone] Allergies Active Allergy Reactions Criticality Noted Date [...] by mouth Daily. Active Advocate Insulin Pen [place] 31G X 8 MM misc See Admin [...] Active Continuous Glucose Sensor (Dexcom G7 Sensor) [facility] USE DIRECTED TO TEST BLOOD GLUCOSE LEVEL [...] Comments Heart disease Father Gabby Hypertension Father [place] Obesity Father Gabby Kidney disease Maternal Aunt 1 None Kidney disease Maternal Aunt 2 Marissa [place] Diabetes Maternal Uncle None Kidney disease Maternal Uncle None Hypertension Mother Leandra Thyroid disease Mother Leandra Kidney disease Paternal Aunt 1 None Kidney disease Paternal Aunt 2 [place] Kidney disease Paternal Aunt 3 JD2 Diabetes Paternal Uncle 1 None Kidney disease Paternal Uncle 1 None Diabetes Paternal Uncle 2 Dax Kidney disease Paternal Uncle 2 Dax Diabetes Paternal Uncle 3 [place] Kidney disease Paternal Uncle 3 [place] Breast cancer Sister 1 Daphne Cancer Sister 1 Daphne Fibromyalgia Sister 1 Daphne Relation Name Status Comments Daughter Margret Alive Father [place] Maternal Aunt 1 None Maternal Aunt 2 Marissa [place] Maternal Uncle None Mother Leandra Paternal Aunt 1 None Paternal Aunt 2 [place] Paternal Aunt 3 JD2 Paternal Uncle 1 None Paternal Uncle 2 Dax Paternal Uncle 3 [place] Sister 1 Daphne Alive Sister 2 Damaris [...] Additional history exists ANNUAL WELLNESS VISIT 06/13/2022 INFLUENZA VACCINE 12/31/2024 03/17/2024, , 03/12/2022, Additional history exists HEMOGLOBIN [...] - 200 mg/dL 09/29/2024 2:56 PM EDT [facility] Triglycerides 112 0 - 150 mg/dL 09/29/2024 2:56 PM EDT [facility] HDL Cholesterol 43 40 - 60 mg/dL 09/29/2024 2:56 PM EDT [facility] LDL Cholesterol 65 0 - 100 mg/dL 09/29/2024 2:56 PM EDT [facility] VLDL Cholesterol 20 5 - 40 mg/dL 09/29/2024 2:56 PM EDT [facility] LDL/HDL Ratio 1.46 09/29/2024 2:56 PM EDT [facility] Blood Structure of left upper limb / Unknown Venipuncture / Unknown 09/29/2024 9:04 AM EDT 09/29/2024 9:04 AM EDT Narrative [facility] - 09/29/2024 2:56 PM EDT [...] is calculated using the NIH LDL-C calculation. Melina Jernigan MD LAB BLOOD ORDERABLES Final Resu lt [facility]
[address] [place] [address], [place] [phone] * (ABNORMAL) POC Glycosylated Hemoglobin (Hb A1C) (09/29/2024 8:43 AM EDT) Hemoglobin A1C 6.5(A) 4.5 - 5.7 % [facility] Lot Number [id number] [facility] Expiration Date [facility] Blood 09/29/2024 8:43 AM EDT Melina Jernigan MD POINT OF CARE TEST ORDERABLES F inal Result Performing Organization Address City/[facility] Co de Phone Number [facility]
[address] [place] [address], [place] [phone] * Mammo Diagnostic Digital Tomosynthesis Left With [...] and surgical excision were performed at [facility]. The calcifications were not obtained with either [...] mammographic findings are identified. Salvador Ivan MD [facility] MAMMOGRAPHY ORDERABLES F inal Result from Last 3 Months or Most Recently Relevant to Health Maintenance Insurance [facility] MEDICARE ADVANTAGE [facility] HMO Care Teams Advertising Operations Coordinator Relationship Specialty Start Date End Date Martha Nielsen APRN [address] [place] [address] PCP - General Family Medicine 09/29/24
--- OUTSIDE RECORDS SUMMARY | 2025-03-03 10:09 | XMS_ITS | Encounter Summary ---
[facility] Address [address] [place] [address] Care Team Providers Care Associate Software Developer Name Role Phone Martha Nielsen APRN Primary Care Provider [phone] Encounter Details Date Type Department Care Team ([facility] st Contact Info) Description 09/30/2024 Results Follow-Up [facility] END[facility] [address] [facility] [address] [place] [address] Melina Jernigan MD [address] [facility] [address] [place] [address] Social History Tobacco Use Types Packs/Day Years [...] on filedocumented in this encounter Care Teams Associate Software Developer Relationship Specialty Start Date End Date Martha Nielsen APRN [address] [place] [address] PCP - General Family Medicine 09/29/24 documented as of this encounter
--- OUTSIDE RECORDS SUMMARY | 2025-03-03 10:09 | XMS_ITS | Encounter Summary ---
Author Organization [facility] Address [address] [place] [address] Care Team Providers Care Regulatory Submissions Associate Name Role Phone Tien Wade MD Primary Care Provider [phone] Encounter Details Date Type Department Care Team (Late st Contact Info) Description 05/10/2021 Community [facility] [address] [place] [address] Tien Wade MD [address] [place] [address] Bulging lumbar disc (Primary Dx) [...] Description 04/08/2025 9:20 AM EST Office Visit [facility] [address] [place] [id number] Dawood Ahn MD [address] [place] [address] documented as of this encounter Visit Diagnoses Diagnosis Bulging lumbar disc- Primary documented in this encounter Care Teams Regulatory Submissions Associate Relationship Specialty Start Date End Date Tien Wade MD [address] [place] [address] PCP - General 10/13/20 documented as of this encounter
--- OUTSIDE RECORDS SUMMARY | 2025-03-03 10:09 | XMS_ITS | Clinical Summary ---
Author Organization [facility] Address [address] [place] [address] Care Team Providers Care Floor Layer Helper Name Role Phone Tien Wade MD Primary Care Provider [phone] Allergies Active Allergy Reactions Criticality Noted Date [...] 10 DAYS 2 Active Continuous Blood Gluc Keg Filler (Dexcom G6 glass mould cleaner) device USE DIRECTED TO TEST BLOOD GLUCOSE [...] GFR 60-89 ml/min 06/11/2021 Essential hypertension 06/11/2021 Fibromyalgia 03/29/2014 Depression 03/29/2014 Resolved Problems Problem Noted Date Diagnosed Date Resolved Date Arthritis, degenerative 04/20/201402/01 Immunizations Immunization Administration Dates Next Due DTaP, [...] 04/08/2025 9:20 AM EST Office Visit [facility] [address] [place] [phone] Dawood Ahn MD [address] [place] [address] Health Maintenance Due Date Last Done [...] A1C 04/21/2024, 09/23/2023, 05/09/2023, Additional history exists [id number] Vaccine ( season) 2025 03/01/2021, 08/31/2020, 08/03/2020 [...] Most Recently Relevant to Health Maintenance [place] [place] [address] MEDICARE Care Teams Floor Layer Helper Relationship Specialty Start Date End Date Tien Wade MD [address] [place] [address] PCP - General 10/13/20
[2025-03-03 10:32] LABS: Hematocrit 45.7 % (37.0-47.0); Hemoglobin 15.7 g/dL (12.2-16.2); Immature Granulocytes % 0.3 %; Mean Corpuscular HGB Conc 34.4 g/dL (31.8-35.4); Mean Corpuscular Hemoglobin 30.8 pg (27.0-31.2); Mean Corpuscular Volume 89.8 fl (81-99); Nucleated Red Blood Cells % 0 %; Platelet Count 341 K/mm3 (142-424); Red Blood Count 5.09 M/mm3 (4.20-5.40); Red Cell Distribution Width-SD 43.3 fL; White Blood Count 8.0 K/mm3 (4.8-10.8)
[2025-03-03 11:16] LABS: Alanine Aminotransferase 39 U/L (12-78); Albumin Level 4.7 g/dl (3.5-5.0); Albumin/Globulin Ratio 1.7 (1.1-1.8); Alkaline Phosphatase 144 U/L (38-126); Anion Gap 19.5 mEq/L (5-15); Aspartate Amino Transferase 45 U/L (14-36); Bilirubin,Total 0.9 mg/dl (0.2-1.3); Blood Urea Nitrogen 16 mg/dl (7-17); Calcium 10.6 mg/dl (8.4-10.2); Carbon Dioxide 26 mmol/L (22.0-30.0); Chloride 96 mmol/L (98-107); Creatinine,Serum 1.30 mg/dl (0.52-1.04); Estimated Glomerular Filt Rate 42 ml/min (>60); GFR (African American) 51 ML/MIN (>60); Globulin 2.7 g/dL (1.3-3.2); Glucose 175 mg/dl (74-100); Potassium 3.5 mmoL/L (3.5-5.1); Sodium 138 mmol/L (136-145); Total Protein,Serum 7.4 g/dl (6.3-8.2)
[2025-03-04 12:13] LABS: FSH 99.6 mIU/mL (.)
[2025-03-08 08:23] LABS: ALT (SGPT) P5P 35 IU/L (0-40); AST (SGOT) P5P 43 IU/L (0-40); Alpha 2-Macroglobulins, Qn 452 mg/dL (110-276); Bilirubin, Total 0.4 mg/dL (0.0-1.2); Cholesterol, Total 142 mg/dL (100-199); GGT 35 IU/L (0-60); Glucose 171 mg/dL (70-99); Triglycerides 193 mg/dL (0-149)
== END 2025-03-03 23:59 | disposition home or self-care (01) ==
LOC: LAB 10:08
PROVIDERS: PCP Family Medicine; Visit Provider Nurse Practitioner Family
DX: N95.1 Menopausal and female climacteric states (principal); R79.89 Other specified abnormal findings of blood chemistry
CPT/HCPCS: 36415; 80053; 80074; 82172; 82247; 82465; 82947; 82977; 83001; 83010; 83521; 84450; 84460; 84478; 85025

== ENCOUNTER 2025-04-05 09:54 | Outpatient (CLI) | payer MEDICARE, MEDICAID, SELFPAY ==
[2025-04-05 10:09] LABS: Microscopic, Urine URINE MICROSCOPIC (MICROSCOPIC)
[2025-04-05 10:38] LABS: Hematocrit 43.4 % (37.0-47.0); Hemoglobin 14.2 g/dL (12.2-16.2); Mean Corpuscular HGB Conc 32.7 g/dL (31.8-35.4); Mean Corpuscular Hemoglobin 30.2 pg (27.0-31.2); Mean Corpuscular Volume 92.3 fl (81-99); Nucleated Red Blood Cells % 0 %; Platelet Count 255 K/mm3 (142-424); Red Blood Count 4.70 M/mm3 (4.20-5.40); Red Cell Distribution Width-SD 44.0 fL; White Blood Count 7.7 K/mm3 (4.8-10.8)
[2025-04-05 10:46] LABS: Bilirubin,Urine Negative (Negative); Color,Urine YELLOW (Yellow); Glucose,Urine (UA) 3+ (Negative); Ketones,Urine Negative (Negative); Leukocyte Esterase,Urine Negative (Negative); PH,Urine 6.0 (5.0-8.5); Protein,Urine Negative (Negative); Specific Gravity, Urine 1.015 (1.005-1.030); Urobilinogen,Urine 0.2 EU/dl (0.2)
[2025-04-05 11:00] LABS: Bacteria,Urine Trace /lpf
[2025-04-05 11:43] LABS: Albumin Level 4.2 g/dl (3.5-5.0); Anion Gap 13.6 mEq/L (5-15); Blood Urea Nitrogen 14 mg/dl (7-17); Calcium 9.5 mg/dl (8.4-10.2); Carbon Dioxide 26 mmol/L (22.0-30.0); Chloride 102 mmol/L (98-107); Creatinine,Serum 1.20 mg/dl (0.52-1.04); Estimated Glomerular Filt Rate 46 ml/min (>60); GFR (African American) 56 ML/MIN (>60); Glucose 175 mg/dl (74-100); Phosphorous 4.2 mg/dl (2.5-4.5); Potassium 3.6 mmoL/L (3.5-5.1); Sodium 138 mmol/L (136-145)
[2025-04-05 12:01] LABS: 25-OH Vitamin D, Total 63.2 ng/mL (30-100)
== END 2025-04-05 23:59 | disposition home or self-care (01) ==
PROVIDERS: PCP Family Medicine; Visit Provider Student in an Organized Health Care Education/Training Program
DX: N18.31 Chronic kidney disease, stage 3a (principal); D63.1 Anemia in chronic kidney disease
CPT/HCPCS: 36415; 80069; 81001; 82043; 82306; 82570; 83970; 84156; 85027